=== PATIENT | male | born 1980 | race Caucasian/White ===

== ENCOUNTER 2018-08-12 13:41 | Inpatient (IN) | payer BC, OTHER ==
[2018-08-12 16:57] VITALS: BMI 29.0
--- NOTE | 2018-08-12 17:49 | HP ---
COWS - Scale Resting Pulse: 1= [place] 81-100 Sweatin= Chills/Flushing Restless Observation: 1= Difficult to Sit Still Pupil Size: 1= Pupils >than Normal Bone or Joint Aches: 1= Mild Discomfort Runny Nose/ Eye Tearin= Runny Nose/Eyes GI Upset > 30mins: 1= Stomach Cramp Tremor Observation: 1= Tremor [place], Not Seen Yawning Observation: 2= >3x During Session Anxiety or Irritability: 2=Irritable/Anxious Goose Flesh Skin: 0=Smooth Skin COWS Score: 13 CIWA Score - CIWA Score Nausea/Vomitin Muscle Tremors: 2 Anxiety: 3 Agitation: 2 Paroxysmal Sweats: 2 Orientation: 0-Oriented Tacttile Disturbances: 0-None Auditory Disturbances: 0-None Visual Disturbances: 0-None Headache: 0-None Present CIWA-Ar Total Score: 12 Admission ROS S - HPI Chief Complaint: " I want to go back to work, get clean and get " alcohol and opioid withdrawal symptoms Allergies/Adverse Reactions: Allergies Allergy/AdvReac Type Severity Reaction Status Date / Time No Known Allergies Allergy Verified 08/12/18 16:36 History of Present Illness: 38 yo male with hx of heroin (nasal), nicotine, and alcohol dependence is here seeking detox. Last detox and rehab 2008 does not recall the name of the facility. PMHX: Asthma, HTN, chronic low back pain, depression and anxiety. Reports discharge himself from [facility] seven months ago. Denies suicidal / homicidal ideation, or hx of suicide attempts. Denies hx of seizures , overdose or blackouts. Reports longest period of sobriety two years. Exam Limitations: No Limitations - Ebola screening Have you traveled outside of the country in the last 21 days: No Have you had contact with anyone from an Ebola affected area: No Have you been sick,other than usual withdrawal symptoms: No Do you have a fever: No - Review of Systems Constitutional: Chills, Loss of Appetite, Changes in sleep EENT: reports: Nose Congestion Respiratory: reports: No Symptoms reported Cardiac: reports: No Symptoms Reported GI: reports: Poor Appetite, Poor Fluid Intake, Abdominal cramping : reports: No Symptoms Reported Musculoskeletal: reports: Back Pain, Joint Pain Integumentary: reports: No Symptoms Reported Neuro: reports: Dizziness Endocrine: reports: Increased Thirst Hematology: reports: No Symptoms Reported Psychiatric: reports: Orientated x3, Depressed Other Systems: Reviewed and Negative Patient History - Patient Medical History Hx Anemia: No Hx Asthma: Yes Hx Chronic Obstructive Pulmonary Disease (COPD): No Hx Cancer: No Hx Cardiac Disorders: No Hx Congestive Heart Failure: No Hx Hypertension: Yes Hx Hypercholesterolemia: No Hx Pacemaker: No HX Cerebrovascular Accident: No Hx Seizures: No Hx Dementia: No Hx Diabetes: No Hx Gastrointestinal Disorders: No Hx Liver Disease: No Hx Genitourinary Disorders: No Hx Sexually Transmitted Disorders: No Hx Renal Disease (ESRD): No Hx Thyroid Disease: No Hx Human Immunodeficiency Virus (HIV): No (Last tested eight months ago. Neg results) Hx Hepatitis C: No Hx Depression: Yes Hx Suicide Attempt: No Hx Bipolar Disorder: No Hx Schizophrenia: No - Patient Surgical History Past Surgical History: Yes Hx Neurologic Surgery: No Hx Cataract Extraction: No Hx Cardiac Surgery: No Hx Lung Surgery: No Hx Breast Surgery: No Hx Breast Biopsy: No Hx Abdominal Surgery: Yes (at age 3) Hx Appendectomy: No Hx Cholecystectomy: No Hx Genitourinary Surgery: No Hx Section: No Hx Orthopedic Surgery: No Anesthesia Reaction: No - PPD History Previous Implant?: Yes Documented Results: Negative w/o proof Implanted On Prior R Admission?: No PPD to be Administered?: Yes - Smoking Cessation Smoking history: Current every day smoker Have you smoked in the past 12 months: Yes Aproximately how many cigarettes per day: 15 Hx Chewing Tobacco Use: No Initiated information on smoking cessation: Yes 'Breaking Loose' booklet given: 08/12/18 - Substance & Tx. History Hx Alcohol Use: Yes Hx Substance Use: Yes Substance Use Type: Alcohol, Heroin Hx Substance Use Treatment: Yes ( Last detox and rehab 2009 does not recall the name of the facility) - Substances Abused Heroin Route: Inhalation Frequency: Daily Amount used: 15 bags Age of first use: 17 Date of Last Use: 08/12/18 Alcohol-rum Route: Oral Frequency: Daily Amount used: 1 pt. Age of first use: 15 Date of Last Use: 08/11/18 Family Disease History - Family Disease History Family Disease History: Diabetes: Mother (alive, HTN), Heart Disease: Mother, Other: Mother Admission Physical Exam BHS - Vital Signs Vital Signs: Vital Signs - 24 hr 08/12/18 16:40 Temperature 98.8 F Pulse Rate 90 Respiratory 18 Rate Blood Pressure 122/77 - Physical General Appearance: Yes: Disheveled, Mild Distress, Anxious HEENTM: Yes: EOMI, Hearing grossly Normal, Normal ENT Inspection, Normocephalic , Normal Voice, RONNIE, Pharynx Normal, Tm's normal, Rhinorrhea, Other (dry mucous membranes) Respiratory: Yes: Chest Non-Tender, Lungs Clear, Normal Breath Sounds, No Respiratory Distress, No Accessory Muscle Use Neck: Yes: Within Normal Limits Breast: Yes: Breast Exam Deferred Cardiology: Yes: Regular Rhythm, Regular Rate Abdominal: Yes: Normal Bowel Sounds, Non Tender, Flat, Soft Genitourinary: Yes: Within Normal Limits Back: Yes: Normal Inspection Musculoskeletal: Yes: full range of Motion, Gait Steady, Pelvis Stable, Back pain Extremities: Yes: Normal Capillary Refill, Normal Inspection, Normal Range of Motion, Non-Tender Neurological: Yes: exercise physiologist II-XII NML intact, Fully Oriented, Alert, Motor Strength 5/5 Integumentary: Yes: Normal Color, Warm, Diaphoresis Lymphatic: Yes: Within Normal Limits - Diagnostic (1) Alcohol dependence with withdrawal Current Visit: Yes Status: Acute Qualifiers: Complication of substance-induced condition: uncomplicated Qualified Code(s ): F10.230 - Alcohol dependence with withdrawal, uncomplicated (2) Opioid dependence with withdrawal Current Visit: Yes Status: Acute (3) Hypertension Current Visit: Yes Status: Chronic Qualifiers: Hypertension type: essential hypertension Qualified Code(s): I10 - Essential (primary) hypertension (4) Asthma Current Visit: Yes Status: Chronic Qualifiers: Asthma severity: mild Asthma persistence: intermittent Asthma complication type: uncomplicated Qualified Code(s): J45.20 - Mild intermittent asthma, uncomplicated Cleared for Admission S - Detox or Rehab [facility] Level of Care: Medically Managed Detox Regimen/Protocol: Methadone/Librium S Breath Alcohol Content Breath Alcohol Content: 0 Urine Drug Screen - Results Drug Screen Negative: No Urine Drug Screen Results: OPI-Opiates, MTD-Methadone, OXY-Oxycodone, FEN- Fentanyl
[2018-08-12] MEDS ORDERED: ALBUTEROL SO4 8 GM HFA INHALER IH PRN (17:51)
[2018-08-12] MEDS ORDERED: ALBUTEROL SO4 0.083% IH SOL 2.5 MG/3 ML VIAL.NEB. NEB PRN (17:52)
[2018-08-12] MEDS ORDERED: NICOTINE POLACRILEX 2 MG GUM BUC PRN (17:59)
[2018-08-12] MEDS ORDERED: METHADONE HCL 10 MG TABLET (FOR DETOX USE ONLY) PO ONE ×2 (17:59→23:00)
[2018-08-12] MEDS ORDERED: guaiFENesin/D-METHORPHAN HB 10 ML UNIT-DOSE CUPS PO PRN (17:59)
[2018-08-12] MEDS ORDERED: P-EPHED 60MG/TRIPROLIDI 2.5MG TABLET PO PRN (17:59)
[2018-08-12] MEDS ORDERED: ACETAMINOPHEN 325 MG TABLET (FP) PO PRN (17:59)
[2018-08-12] MEDS ORDERED: MENTHOL/PHENOL 1 EACH UD MM PRN (17:59)
[2018-08-12] MEDS ORDERED: IBUPROFEN 400 MG TABLET (FP) PO PRN (17:59)
[2018-08-12] MEDS ORDERED: MAG HYDROX/AL HYDROX/SIMETH 30 ML UNIT-DOSE CUP PO PRN (17:59)
[2018-08-12] MEDS ORDERED: MAGNESIUM HYDROX 2400MG/30ML ORAL SUSPENSION 30 ML CUP PO PRN (17:59)
[2018-08-12] MEDS ORDERED: MAGNESIUM CITRATE 300 ML BOTTLE PO PRN (17:59)
[2018-08-12] MEDS ORDERED: LOPERAMIDE HCL 2 MG CAPSULE PO PRN (17:59)
[2018-08-12] MEDS: chlordiazePOXIDE HCL 25 MG CAPSULE PO PRN (19:10)
[2018-08-12] MEDS: cloNIDine HCL 0.1 MG TABLET PO SCH (22:18)
[2018-08-12] MEDS: THIAMINE HCL 100 MG TABLET (FP) PO SCH (22:18)
[2018-08-12] MEDS: chlordiazePOXIDE HCL 25 MG CAPSULE PO SCH (22:19)
[2018-08-12] MEDS: MELATONIN 5 MG TABLETS PO PRN (22:21)
[2018-08-12 23:24] LABS: URINE APPEARANCE CLEAR; URINE BILIRUBIN NEGATIVE (<2.0 mg/dL); URINE COLOR YELLOW; URINE GLUCOSE (UA) NEGATIVE (NEGATIVE); URINE KETONE NEGATIVE (NEGATIVE); URINE LEUK ESTERASE NEGATIVE (NEGATIVE); URINE NITRITE NEGATIVE (NEGATIVE); URINE PROTEIN NEGATIVE (NEGATIVE); URINE UROBILINOGEN NEGATIVE mg/dL (0.2-1.0)
[2018-08-13] MEDS: chlordiazePOXIDE HCL 25 MG CAPSULE PO SCH ×4 (05:43→22:08)
[2018-08-13] MEDS: cloNIDine HCL 0.1 MG TABLET PO SCH ×3 (05:56→22:08)
--- NOTE | 2018-08-13 08:22 | CONSULT ---
[facility] Psychiatric Consult - Data Date of interview: 08/13/18 Admission source: [facility] Identifying data: 38 yo male with hx of heroin (nasal), nicotine, and alcohol dependence is here seeking detox. Last detox and rehab 2008 does not recall the name of the facility. PMHX: Asthma, HTN, chronic low back pain, depression and anxiety. Reports discharge himself from [facility] seven months ago. Denies suicidal / homicidal ideation, or hx of suicide attempts. Denies hx of seizures, overdose or blackouts. Reports longest period of sobriety two years.
[2018-08-13] MEDS ORDERED: METHADONE HCL 10 MG TABLET (FOR DETOX USE ONLY) PO SCH (10:00)
[2018-08-13] MEDS: NICOTINE 21 MG/24 HOURS TOPICAL PATCH TD SCH (10:31)
[2018-08-13] MEDS: PRENATAL VITAMINS W/ FOLIC ACID TABLET (FP) PO SCH (10:31)
[2018-08-13] MEDS: amLODIPine BESYLATE 10 MG TABLET (FP) PO SCH (10:31)
[2018-08-13 10:57] LABS: HEMATOCRIT 39.7 % (35.4-49); MCH 28.6 pg (25.7-33.7); MCHC 32.7 g/dl (32.0-35.9); MEAN CELL VOLUME 87.6 fl (80-96); MEAN PLT VOLUME 9.1 fl (7.5-11.1); PLATELET COUNT 167 K/MM3 (134-434); RBC 4.53 M/mm3 (4.00-5.60); RDW 14.2 % (11.9-15.9); WHITE BLOOD COUNT 7.9 K/mm3 (4.0-10.0)
[2018-08-13 11:16] LABS: ALBUMIN 3.2 g/dl (3.4-5.0); ALK PHOS 64 U/L (45-117); ANION GAP 6 MMOL/L (8-16); BILIRUBIN,TOTAL 0.3 mg/dL (0.2-1); BLOOD UREA NITROGEN 16 mg/dL (7-18); CALCIUM 8.3 mg/dL (8.5-10.1); CHLORIDE 108 mmol/L (98-107); CO2 28 mmol/L (21-32); CREATININE 0.6 mg/dL (0.55-1.3); GLUCOSE,RANDOM 85 mg/dL (74-106); POTASSIUM 4.2 mmol/L (3.5-5.1); SGOT/AST 12 U/L (15-37); SGPT/ALT 14 U/L (13-61); SODIUM 142 mmol/L (136-145); TOT PROT 6.3 g/dl (6.4-8.2)
--- NOTE | 2018-08-13 12:19 | EKG ---
Test Reason : Blood Pressure : / mmHG Vent. Rate : 072 BPM Atrial Rate : 072 BPM P-R Int : 132 ms QRS Dur : 090 ms QT Int : 376 ms P-R-T Axes : 053 059 061 degrees QTc Int : 411 ms NORMAL SINUS RHYTHM NORMAL ECG NO PREVIOUS ECGS AVAILABLE Confirmed by DIYA WALSH MD ([id number]) on 08/13/2018 12:18:52 PM Referred By: Confirmed By:DIYA WALSH MD
--- NOTE | 2018-08-13 14:55 | PN ---
[facility] CIWA - CIWA Score Nausea/Vomitin Muscle Tremors: 4-Moderate,w/Arms Extend Anxiety: 4-Mod. Anxious/Guarded Agitation: 4-Moderately Restless Paroxysmal Sweats: 3 Orientation: 0-Oriented Tacttile Disturbances: 1-Very Mild Itch/Numbness Auditory Disturbances: 0-None Visual Disturbances: 0-None Headache: 0-None Present CIWA-Ar Total Score: 18 BHS COWS - Scale Resting Pulse: 0= [place] 80 or Below Sweatin= Chills/Flushing Restless Observation: 3= Extraneous Movement Pupil Size: 0= Normal to Room Light Bone or Joint Aches: 2= Severe Diffuse Aches Runny Nose/ Eye Tearin= Runny Nose/Eyes GI Upset > 30mins: 3= Vomiting/Diarrhea Tremor Observation of Outstretched Hands: 2= Slight Tremor Visible Yawning Observation: 1= 1-2x During Session Anxiety or Irritability: 2=Irritable/Anxious Goose Flesh Skin: 0=Smooth Skin COWS Score: 16 S Progress Note (SOAP) Subjective: Chills, sweating, interrupted sleep Objective: 08/13/18 14:54 Last Vital Signs Temp Pulse Resp BP Pulse Ox 98.9 F 80 18 140/86 08/13/18 14:06 08/13/18 14:06 08/13/18 14:06 08/13/18 14:06 Laboratory Tests 08/12/18 08/13/18 08/13/18 22:22 07:00 07:15 WBC 7.9 RBC 4.53 Hgb 13.0 Hct 39.7 MCV 87.6 MCH 28.6 MCHC 32.7 RDW 14.2 Plt Count 167 MPV 9.1 Sodium Potassium Chloride Carbon Dioxide Anion Gap BUN Creatinine Creat Clearance w eGFR Random Glucose Calcium Total Bilirubin AST ALT Alkaline Phosphatase Total Protein Albumin Urine Color Yellow Urine Appearance Clear Urine pH 5.0 Ur Specific [place] 1.021 Urine Protein Negative Urine Glucose (UA) Negative Urine Ketones Negative Urine Blood Negative Urine Nitrite Negative Urine Bilirubin Negative Urine Urobilinogen Negative Ur Leukocyte Esterase Negative RPR Titer HIV 1&2 Antibody Screen Negative HIV P24 Antigen Negative 08/13/18 08/13/18 07:15 07:15 WBC RBC Hgb Hct MCV MCH MCHC RDW Plt Count MPV Sodium 142 Potassium 4.2 Chloride 108 H Carbon Dioxide 28 Anion Gap 6 L BUN 16 Creatinine 0.6 Creat Clearance w eGFR > 60 Random Glucose 85 Calcium 8.3 L Total Bilirubin 0.3 AST 12 L ALT 14 Alkaline Phosphatase 64 Total Protein 6.3 L Albumin 3.2 L Urine Color Urine Appearance Urine pH Ur Specific [place] Urine Protein Urine Glucose (UA) Urine Ketones Urine Blood Urine Nitrite Urine Bilirubin Urine Urobilinogen Ur Leukocyte Esterase RPR Titer Nonreactive HIV 1&2 Antibody Screen HIV P24 Antigen Labs reviewed Assessment: 08/13/18 14:55 Withdrawal symptoms Plan: Continue detox Encouraged PO water intake
[2018-08-13] MEDS ORDERED: QUEtiapine FUMARATE 50 MG TABLET PO SCH (22:00)
[2018-08-13] MEDS ORDERED: QUEtiapine FUMARATE 100 MG TABLET (FP) PO SCH (22:00)
[2018-08-13] MEDS: THIAMINE HCL 100 MG TABLET (FP) PO SCH (22:08)
[2018-08-13] MEDS: MELATONIN 5 MG TABLETS PO PRN (22:09)
[2018-08-14] MEDS: chlordiazePOXIDE HCL 25 MG CAPSULE PO SCH ×3 (05:21→17:12)
[2018-08-14] MEDS: METHADONE HCL 5 MG TABLET (FOR DETOX USE ONLY) PO SCH (10:20)
[2018-08-14] MEDS: PRENATAL VITAMINS W/ FOLIC ACID TABLET (FP) PO SCH (10:21)
[2018-08-14] MEDS: amLODIPine BESYLATE 10 MG TABLET (FP) PO SCH (10:21)
[2018-08-14] MEDS: NICOTINE 21 MG/24 HOURS TOPICAL PATCH TD SCH (10:23)
[2018-08-14] MEDS: cloNIDine HCL 0.1 MG TABLET PO SCH ×3 (10:24→22:07)
[2018-08-14] MEDS: chlordiazePOXIDE HCL 25 MG CAPSULE PO PRN (12:47)
--- NOTE | 2018-08-14 13:08 | PN ---
Psychiatric Progress Note Vital Signs: Vital Signs Period Temp Pulse Resp BP Sys/Toro Pulse Ox Last 24 Hr 97.2 F-99.9 F 59-81 18-18 114-142/68-93 Date of Session: 08/14/18 Chief Complaint:: BHS HPI: Patient admitted to for alcohol and opioid dependence. ROS: Asthma, Abdominal surgery at age 3. Current Medications: Active Medications Generic Name Dose Route Start Last Admin Trade Name Freq PRN Reason Stop Dose Admin Acetaminophen 650 mg 08/12/18 17:59 Tylenol - PO Q4H PRN FEVER Al Hydroxide/Mg Hydroxide 30 ml 08/12/18 17:59 Mylanta Oral Suspension - PO Q6H PRN DYSPEPSIA Albuterol Sulfate 2 puff 08/12/18 17:51 Ventolin Hfa Inhaler - IH Q4H PRN ASTHMA Albuterol Sulfate 1 amp 08/12/18 17:52 Ventolin 0.083% Nebulizer Soln - NEB Q4H PRN SHORT OF BREATH/WHEEZING Amlodipine Besylate 10 mg 08/13/18 10:00 08/14/18 10:21 Norvasc - PO 10 mg DAILY GINA Administration Chlordiazepoxide HCl 25 mg 08/13/18 23:00 08/14/18 10:21 Librium - PO 08/14/18 17:01 25 mg [id number] GIAN Administration Chlordiazepoxide HCl 15 mg 08/14/18 23:00 Librium - PO 08/15/18 17:01 [id number] GINA Chlordiazepoxide HCl 10 mg 08/15/18 23:00 Librium - PO 08/16/18 17:01 [id number] GINA Chlordiazepoxide HCl 25 mg 08/12/18 17:59 08/14/18 12:47 Librium - PO 08/15/18 17:59 25 mg Q4H PRN Administration WITHDRAWAL(CONT SUBST) Clonidine 0.3 mg 08/12/18 22:00 08/14/18 10:24 Catapres - PO Not Given TID GINA Eucalyptus/Menthol/Phenol/Sorbitol 1 each 08/12/18 17:59 Cepastat Lozenge - MM Q4H PRN SORE THROAT Guaifenesin 10 ml 08/12/18 17:59 Robitussin Dm - PO Q6H PRN COUGH Hydroxyzine Pamoate 50 mg 08/12/18 17:59 Vistaril - PO Q4H PRN AGITATION Ibuprofen 400 mg 08/12/18 17:59 Motrin - PO Q6H PRN PAIN LEVEL 4-6 Loperamide HCl 4 mg 08/12/18 17:59 Imodium - PO Q6H PRN DIARRHEA Magnesium Citrate 300 ml 08/12/18 17:59 Citroma - PO Q48H PRN CONSTIPATION Magnesium Hydroxide 30 ml 08/12/18 17:59 Milk Of Magnesia - PO DAILY PRN CONSTIPATION Melatonin 5 mg 08/12/18 22:00 08/13/18 22:09 Melatonin PO 5 mg HS PRN Administration INSOMNIA Methadone HCl 15 mg 08/14/18 10:00 08/14/18 10:20 Dolophine - PO 08/15/18 10:01 15 mg DAILY GINA Administration Methadone HCl 5 mg 08/17/18 06:00 Dolophine - PO 08/17/18 06:01 DAILY@0600 GINA Methadone HCl 10 mg 08/16/18 10:00 Dolophine - PO 08/16/18 10:01 DAILY GINA Nicotine 21 mg 08/13/18 10:00 08/14/18 10:23 Nicoderm Patch - TD 21 mg DAILY GINA Administration Nicotine Polacrilex 2 mg 08/12/18 17:59 Nicorette Gum - BUC Q2H PRN NICOTINE REPLACEMENT RX Multivit/Folic Acid/Iron 1 tab 08/13/18 10:00 08/14/18 10:21 Vitamins (Sjr) - PO 1 tab DAILY GINA Administration Pseudoephedrine/Triprolidine 1 combo 08/12/18 17:59 Actifed - PO TID PRN NASAL CONGESTION Quetiapine Fumarate 50 mg 08/13/18 22:00 08/13/18 22:08 Seroquel - PO 50 mg HS GINA Administration Thiamine HCl 100 mg 08/12/18 22:00 08/13/18 22:08 Vitamin B1 - PO 100 mg HS GINA Administration Medication(s) Change(s): Will add Seroquel 50mg qhs. Current Side Effect: No Lab tests ordered: No Lab tests reviewed: Yes Provider note:: Patient reports h/o anxiety and depression. At present, patient reports worsening anxiety and insomnia. Patient was prescribed seroquel 50mg with minimal effect. Will increase seroquel to 100mg. Verbal consent given. MAR reviewed and noted patient has yet to accept vistaril 50mg for anxiety. Patient informed that vistaril is available for anxiety/agitation. Psychoeducation and sleep hygiene discussed. Patient satisifed and receptive to feedback. Total face to face time:: 25 Mental Status Exam - Mental Status Exam Alert and Oriented to: Time, Place, Person Cognitive Function: Good Patient Appearance: Well Groomed Mood: Euthymic Affect: Mood Congruent Patient Behavior: Appropriate, Cooperative Speech Pattern: Clear, Appropriate Voice Loudness: Normal Thought Process: Intact, Goal Oriented Thought Disorder: Not Present Hallucinations: Denies Suicidal Ideation: Denies Homicidal Ideation: Denies Insight/Judgement: Poor Sleep: Poorly Appetite: Fair Muscle strength/Tone: Normal Gait/Station: Normal Psychiatric Treatment Plan - Problem List (1) Substance induced mood disorder Current Visit: Yes (2) Substance-induced sleep disorder Current Visit: Yes (3) Alcohol dependence with withdrawal Current Visit: Yes Qualifiers: Complication of substance-induced condition: uncomplicated Qualified Code(s ): F10.230 - Alcohol dependence with withdrawal, uncomplicated (4) Opioid dependence with withdrawal Current Visit: Yes
--- NOTE | 2018-08-14 14:22 | PN ---
S CIWA - CIWA Score Nausea/Vomitin Muscle Tremors: 3 Anxiety: 4-Mod. Anxious/Guarded Agitation: 3 Paroxysmal Sweats: 3 Orientation: 0-Oriented Tacttile Disturbances: 0-None Auditory Disturbances: 0-None Visual Disturbances: 0-None Headache: 0-None Present CIWA-Ar Total Score: 15 BHS COWS - Scale Resting Pulse: 0= [place] 80 or Below Sweatin= Chills/Flushing Restless Observation: 3= Extraneous Movement Pupil Size: 0= Normal to Room Light Bone or Joint Aches: 2= Severe Diffuse Aches Runny Nose/ Eye Tearin= Runny Nose/Eyes GI Upset > 30mins: 2= Nausea/Diarrhea Tremor Observation of Outstretched Hands: 2= Slight Tremor Visible Yawning Observation: 0= None Anxiety or Irritability: 2=Irritable/Anxious Goose Flesh Skin: 0=Smooth Skin COWS Score: 14 BHS Progress Note (SOAP) Subjective: Sweating, interrupted sleep Objective: 08/14/18 14:20 Last Vital Signs Temp Pulse Resp BP Pulse Ox 98.6 F 76 18 105/72 08/14/18 13:55 08/14/18 13:55 08/14/18 13:55 08/14/18 13:55 Laboratory Tests 08/12/18 08/13/18 08/13/18 22:22 07:00 07:15 WBC 7.9 RBC 4.53 Hgb 13.0 Hct 39.7 MCV 87.6 MCH 28.6 MCHC 32.7 RDW 14.2 Plt Count 167 MPV 9.1 Sodium Potassium Chloride Carbon Dioxide Anion Gap BUN Creatinine Creat Clearance w eGFR Random Glucose Calcium Total Bilirubin AST ALT Alkaline Phosphatase Total Protein Albumin Urine Color Yellow Urine Appearance Clear Urine pH 5.0 Ur Specific [place] 1.021 Urine Protein Negative Urine Glucose (UA) Negative Urine Ketones Negative Urine Blood Negative Urine Nitrite Negative Urine Bilirubin Negative Urine Urobilinogen Negative Ur Leukocyte Esterase Negative RPR Titer HIV 1&2 Antibody Screen Negative HIV P24 Antigen Negative 08/13/18 08/13/18 07:15 07:15 WBC RBC Hgb Hct MCV MCH MCHC RDW Plt Count MPV Sodium 142 Potassium 4.2 Chloride 108 H Carbon Dioxide 28 Anion Gap 6 L BUN 16 Creatinine 0.6 Creat Clearance w eGFR > 60 Random Glucose 85 Calcium 8.3 L Total Bilirubin 0.3 AST 12 L ALT 14 Alkaline Phosphatase 64 Total Protein 6.3 L Albumin 3.2 L Urine Color Urine Appearance Urine pH Ur Specific [place] Urine Protein Urine Glucose (UA) Urine Ketones Urine Blood Urine Nitrite Urine Bilirubin Urine Urobilinogen Ur Leukocyte Esterase RPR Titer Nonreactive HIV 1&2 Antibody Screen HIV P24 Antigen Labs reviewed Assessment: 08/14/18 14:20 Withdrawal symptoms Plan: Continue detox Encouraged PO water intake
[2018-08-14] MEDS: hydrOXYzine PAMOATE 50 MG CAPSULE (FP) PO PRN (20:27)
[2018-08-14] MEDS: QUEtiapine FUMARATE 100 MG TABLET (FP) PO SCH (22:06)
[2018-08-14] MEDS: THIAMINE HCL 100 MG TABLET (FP) PO SCH (22:06)
[2018-08-14] MEDS: chlordiazePOXIDE 5 MG CAPSULE PO SCH (22:07)
[2018-08-15] MEDS: hydrOXYzine PAMOATE 50 MG CAPSULE (FP) PO PRN ×4 (03:18→21:11)
[2018-08-15] MEDS: chlordiazePOXIDE 5 MG CAPSULE PO SCH ×3 (06:27→17:42)
[2018-08-15] MEDS: cloNIDine HCL 0.1 MG TABLET PO SCH ×3 (06:31→22:17)
--- NOTE | 2018-08-15 09:25 | PN ---
[facility] Progress Note Note: Vital Signs Temperature 97.1 F L 08/15/18 06:24 Pulse Rate 57 L 08/15/18 06:24 Respiratory Rate 18 08/15/18 06:24 Blood Pressure 111/63 08/15/18 06:24 O2 Sat by Pulse Oximetry (%) Laboratory Last Values WBC 7.9 K/mm3 (4.0-10.0) 08/13/18 07:15 RBC 4.53 M/mm3 (4.00-5.60) 08/13/18 07:15 Hgb 13.0 GM/dL (11.7-16.9) 08/13/18 07:15 Hct 39.7 % (35.4-49) 08/13/18 07:15 MCV 87.6 fl (80-96) 08/13/18 07:15 MCH 28.6 pg (25.7-33.7) 08/13/18 07:15 MCHC 32.7 g/dl (32.0-35.9) 08/13/18 07:15 RDW 14.2 % (11.9-15.9) 08/13/18 07:15 Plt Count 167 K/MM3 (134-434) 08/13/18 07:15 MPV 9.1 fl (7.5-11.1) 08/13/18 07:15 Sodium 142 mmol/L (136-145) 08/13/18 07:15 Potassium 4.2 mmol/L (3.5-5.1) 08/13/18 07:15 Chloride 108 mmol/L (98-107) H 08/13/18 07:15 Carbon Dioxide 28 mmol/L (21-32) 08/13/18 07:15 Anion Gap 6 MMOL/L (8-16) L 08/13/18 07:15 BUN 16 mg/dL (7-18) 08/13/18 07:15 Creatinine 0.6 mg/dL (0.55-1.3) 08/13/18 07:15 Creat Clearance w eGFR > 60 (>60) 08/13/18 07:15 Random Glucose 85 mg/dL (74-106) 08/13/18 07:15 Calcium 8.3 mg/dL (8.5-10.1) L 08/13/18 07:15 Total Bilirubin 0.3 mg/dL (0.2-1) 08/13/18 07:15 AST 12 U/L (15-37) L 08/13/18 07:15 ALT 14 U/L (13-61) 08/13/18 07:15 Alkaline Phosphatase 64 U/L (45-117) 08/13/18 07:15 Total Protein 6.3 g/dl (6.4-8.2) L 08/13/18 07:15 Albumin 3.2 g/dl (3.4-5.0) L 08/13/18 07:15 Urine Color Yellow 08/12/18 22:22 Urine Appearance Clear 08/12/18 22:22 Urine pH 5.0 (5.0-8.0) 08/12/18 22:22 Ur Specific [place] 1.021 (1.010-1.035) 08/12/18 22:22 Urine Protein Negative (NEGATIVE) 08/12/18 22:22 Urine Glucose (UA) Negative (NEGATIVE) 08/12/18 22:22 Urine Ketones Negative (NEGATIVE) 08/12/18 22:22 Urine Blood Negative (NEGATIVE) 08/12/18 22:22 Urine Nitrite Negative (NEGATIVE) 08/12/18 22:22 Urine Bilirubin Negative (<2.0 mg/dL) 08/12/18 22:22 Urine Urobilinogen Negative mg/dL (0.2-1.0) 08/12/18 22:22 Ur Leukocyte Esterase Negative (NEGATIVE) 08/12/18 22:22 RPR Titer Nonreactive (NONREACTIVE) 08/13/18 07:15 HIV 1&2 Antibody Screen Negative 08/13/18 07:00 HIV P24 Antigen Negative 08/13/18 07:00 c/o feeling anxious, back pain, body aches, interrupted sleep Ao x3 no distress full ROM ambulating in the unit withdrawal sx increase PO fluids continue to monitor
[2018-08-15] MEDS: amLODIPine BESYLATE 10 MG TABLET (FP) PO SCH (10:20)
[2018-08-15] MEDS: PRENATAL VITAMINS W/ FOLIC ACID TABLET (FP) PO SCH (10:20)
[2018-08-15] MEDS: METHADONE HCL 5 MG TABLET (FOR DETOX USE ONLY) PO SCH (10:20)
[2018-08-15] MEDS: NICOTINE 21 MG/24 HOURS TOPICAL PATCH TD SCH (10:22)
[2018-08-15] MEDS: chlordiazePOXIDE HCL 10 MG CAPSULE PO SCH (22:17)
[2018-08-15] MEDS: QUEtiapine FUMARATE 100 MG TABLET (FP) PO SCH (22:18)
[2018-08-15] MEDS: THIAMINE HCL 100 MG TABLET (FP) PO SCH (22:18)
[2018-08-16] MEDS: chlordiazePOXIDE HCL 10 MG CAPSULE PO SCH ×3 (05:51→17:37)
[2018-08-16] MEDS: cloNIDine HCL 0.1 MG TABLET PO SCH ×3 (05:52→22:19)
[2018-08-16] MEDS ORDERED: METHADONE HCL 10 MG TABLET (FOR DETOX USE ONLY) PO SCH (10:00)
[2018-08-16] MEDS: amLODIPine BESYLATE 10 MG TABLET (FP) PO SCH (10:13)
[2018-08-16] MEDS: PRENATAL VITAMINS W/ FOLIC ACID TABLET (FP) PO SCH (10:13)
[2018-08-16] MEDS: NICOTINE 21 MG/24 HOURS TOPICAL PATCH TD SCH (10:15)
--- NOTE | 2018-08-16 16:10 | PN ---
BHS Progress Note (SOAP) Subjective: Interrupted sleep, tremor, anxious, nervous. Patient stated he is scheduled for admission to [facility] rehab tomorrow. Objective: 08/16/18 16:09 Last Vital Signs Temp Pulse Resp BP Pulse Ox 99.3 F 72 18 117/72 08/16/18 14:15 08/16/18 14:15 08/16/18 14:15 08/16/18 14:15 Laboratory Tests 08/12/18 08/13/18 08/13/18 22:22 07:00 07:15 WBC 7.9 RBC 4.53 Hgb 13.0 Hct 39.7 MCV 87.6 MCH 28.6 MCHC 32.7 RDW 14.2 Plt Count 167 MPV 9.1 Sodium Potassium Chloride Carbon Dioxide Anion Gap BUN Creatinine Creat Clearance w eGFR Random Glucose Calcium Total Bilirubin AST ALT Alkaline Phosphatase Total Protein Albumin Urine Color Yellow Urine Appearance Clear Urine pH 5.0 Ur Specific [place] 1.021 Urine Protein Negative Urine Glucose (UA) Negative Urine Ketones Negative Urine Blood Negative Urine Nitrite Negative Urine Bilirubin Negative Urine Urobilinogen Negative Ur Leukocyte Esterase Negative RPR Titer HIV 1&2 Antibody Screen Negative HIV P24 Antigen Negative 08/13/18 08/13/18 07:15 07:15 WBC RBC Hgb Hct MCV MCH MCHC RDW Plt Count MPV Sodium 142 Potassium 4.2 Chloride 108 H Carbon Dioxide 28 Anion Gap 6 L BUN 16 Creatinine 0.6 Creat Clearance w eGFR > 60 Random Glucose 85 Calcium 8.3 L Total Bilirubin 0.3 AST 12 L ALT 14 Alkaline Phosphatase 64 Total Protein 6.3 L Albumin 3.2 L Urine Color Urine Appearance Urine pH Ur Specific [place] Urine Protein Urine Glucose (UA) Urine Ketones Urine Blood Urine Nitrite Urine Bilirubin Urine Urobilinogen Ur Leukocyte Esterase RPR Titer Nonreactive HIV 1&2 Antibody Screen HIV P24 Antigen Labs reviewed Assessment: 08/16/18 16:09 Withdrawal symptoms Plan: Continue detox Encouraged PO water intake
[2018-08-16] MEDS: THIAMINE HCL 100 MG TABLET (FP) PO SCH (22:19)
[2018-08-16] MEDS: MELATONIN 5 MG TABLETS PO PRN (22:20)
[2018-08-16] MEDS: QUEtiapine FUMARATE 100 MG TABLET (FP) PO SCH (22:20)
[2018-08-17] MEDS: cloNIDine HCL 0.1 MG TABLET PO SCH (05:14)
[2018-08-17] MEDS ORDERED: METHADONE HCL 5 MG TABLET (FOR DETOX USE ONLY) PO SCH (06:00)
[2018-08-17 09:12] VITALS: BP 102/65; PULSE 66; TEMP 98.4
[2018-08-17] MEDS: amLODIPine BESYLATE 10 MG TABLET (FP) PO SCH (10:34)
[2018-08-17] MEDS: NICOTINE 21 MG/24 HOURS TOPICAL PATCH TD SCH (10:34)
[2018-08-17] MEDS: PRENATAL VITAMINS W/ FOLIC ACID TABLET (FP) PO SCH (10:34)
--- NOTE | 2018-08-17 10:59 | DS ---
[facility] Detox Discharge Summary Admission Date: 08/12/18 Discharge Date: 08/17/18 - History Present History: Alcohol Dependence, Opioid Dependence Pertinent Past History: Alcohol dependence Opioid dependence Asthma HTN Nicotine dependence Chronic LBP - Physical Exam Results Vital Signs: Vital Signs Temperature 98.4 F 08/17/18 09:11 Pulse Rate 66 08/17/18 09:11 Respiratory Rate 18 08/17/18 09:11 Blood Pressure 102/65 08/17/18 09:11 O2 Sat by Pulse Oximetry (%) Pertinent Admission Physical Exam Findings: Withdrawal symptoms Laboratory Tests 08/12/18 08/13/18 08/13/18 22:22 07:00 07:15 WBC 7.9 RBC 4.53 Hgb 13.0 Hct 39.7 MCV 87.6 MCH 28.6 MCHC 32.7 RDW 14.2 Plt Count 167 MPV 9.1 Sodium Potassium Chloride Carbon Dioxide Anion Gap BUN Creatinine Creat Clearance w eGFR Random Glucose Calcium Total Bilirubin AST ALT Alkaline Phosphatase Total Protein Albumin Urine Color Yellow Urine Appearance Clear Urine pH 5.0 Ur Specific [place] 1.021 Urine Protein Negative Urine Glucose (UA) Negative Urine Ketones Negative Urine Blood Negative Urine Nitrite Negative Urine Bilirubin Negative Urine Urobilinogen Negative Ur Leukocyte Esterase Negative RPR Titer HIV 1&2 Antibody Screen Negative HIV P24 Antigen Negative 08/13/18 08/13/18 07:15 07:15 WBC RBC Hgb Hct MCV MCH MCHC RDW Plt Count MPV Sodium 142 Potassium 4.2 Chloride 108 H Carbon Dioxide 28 Anion Gap 6 L BUN 16 Creatinine 0.6 Creat Clearance w eGFR > 60 Random Glucose 85 Calcium 8.3 L Total Bilirubin 0.3 AST 12 L ALT 14 Alkaline Phosphatase 64 Total Protein 6.3 L Albumin 3.2 L Urine Color Urine Appearance Urine pH Ur Specific [place] Urine Protein Urine Glucose (UA) Urine Ketones Urine Blood Urine Nitrite Urine Bilirubin Urine Urobilinogen Ur Leukocyte Esterase RPR Titer Nonreactive HIV 1&2 Antibody Screen HIV P24 Antigen Labs reviewed - Treatment Hospital Course: Detox Protocol Followed, Detoxed Safely, Responded well, Discharged Condition Good, Rehab Referral Accepted - Medication Discharge Medications: Ambulatory Orders Albuterol Sulfate Inhaler - [Ventolin Hfa Inhaler -] 2 inh PO Q4H PRN 08/12/18 Amlodipine Besylate [Norvasc -] 10 mg PO DAILY 08/12/18 Clonidine HCl [Catapres] 0.3 mg PO TID 08/12/18 Quetiapine Fumarate [Seroquel -] 50 mg PO HS #30 tablet 08/13/18 - Diagnosis (1) Chronic lower back pain Current Visit: Yes Status: Chronic (2) Depression Current Visit: Yes Status: Chronic (3) Anxiety Current Visit: Yes Status: Chronic (4) Nicotine dependence Current Visit: Yes Status: Chronic (5) Alcohol dependence with withdrawal Current Visit: Yes Status: Acute Qualifiers: Complication of substance-induced condition: uncomplicated Qualified Code(s ): F10.230 - Alcohol dependence with withdrawal, uncomplicated (6) Opioid dependence with withdrawal Current Visit: Yes Status: Acute (7) Asthma Current Visit: Yes Status: Chronic Qualifiers: Asthma severity: mild Asthma persistence: intermittent Asthma complication type: uncomplicated Qualified Code(s): J45.20 - Mild intermittent asthma, uncomplicated (8) Hypertension Current Visit: Yes Status: Chronic Qualifiers: Hypertension type: essential hypertension Qualified Code(s): I10 - Essential (primary) hypertension - AMA Did Patient Leave Against Medical Advice: No (Patient accepted admission to [facility])
== END 2018-08-17 13:08 | disposition other institution (70) | DRG 773 ==
LOC: YASAS 13:41 → Y3N 18:02
PROC: HZ2ZZZZ Detoxification Services for Substance Abuse Treatment (ICD-10-PCS; principal; 2018-08-12)
DX: F11.23 Opioid dependence with withdrawal (principal); F10.230 Alcohol dependence with withdrawal, uncomplicated; F17.210 Nicotine dependence, cigarettes, uncomplicated; F31.9 Bipolar disorder, unspecified; F19.24 Other psychoactive substance dependence with psychoactive substance-induced mood disorder; F19.282 Other psychoactive substance dependence with psychoactive substance-induced sleep disorder; I10 Essential (primary) hypertension; J45.20 Mild intermittent asthma, uncomplicated; M54.5 Low back pain; G89.29 Other chronic pain
CPT/HCPCS: 36415; 80053; 81003; 85027; 86593; 87389; 93005; 93010; J0735

== ENCOUNTER 2018-08-17 13:18 | Inpatient (IN) | payer OTHER ==
[2018-08-17] MEDS ORDERED: MENTHOL/PHENOL 1 EACH UD MM PRN (14:48)
[2018-08-17] MEDS ORDERED: P-EPHED 60MG/TRIPROLIDI 2.5MG TABLET PO PRN (14:48)
[2018-08-17] MEDS ORDERED: LOPERAMIDE HCL 2 MG CAPSULE PO PRN (14:48)
[2018-08-17] MEDS ORDERED: MAGNESIUM HYDROX 2400MG/30ML ORAL SUSPENSION 30 ML CUP PO PRN (14:48)
[2018-08-17] MEDS ORDERED: MAGNESIUM CITRATE 300 ML BOTTLE PO PRN (14:48)
[2018-08-17] MEDS ORDERED: guaiFENesin/D-METHORPHAN HB 10 ML UNIT-DOSE CUPS PO PRN (14:48)
[2018-08-17] MEDS: cloNIDine HCL 0.1 MG TABLET PO SCH ×2 (16:07→22:06)
[2018-08-17] MEDS: IBUPROFEN 400 MG TABLET (FP) PO PRN (20:14)
[2018-08-17] MEDS: hydrOXYzine PAMOATE 25 MG CAPSULE (FP) PO PRN (20:14)
[2018-08-17] MEDS: THIAMINE HCL 100 MG TABLET (FP) PO SCH (22:06)
[2018-08-17] MEDS: MELATONIN 5 MG TABLETS PO PRN (22:07)
[2018-08-18] MEDS: IBUPROFEN 400 MG TABLET (FP) PO PRN (06:27)
[2018-08-18] MEDS: cloNIDine HCL 0.1 MG TABLET PO SCH ×3 (06:28→22:00)
[2018-08-18] MEDS: hydrOXYzine PAMOATE 25 MG CAPSULE (FP) PO PRN (06:29)
--- NOTE | 2018-08-18 07:04 | HP ---
Psychiatrist Admission - Data Date of interview: 08/18/18 Admission source: 3N Identifying data: This is the first [facility] admission for this 38 years old single male, unemployed on SSI, homeless Medical History: Significant for bronchial asthma, hypertension, chronic low back pain and history of abdominal surgery at 6 months old. Smokes 15 cigarettes daily Psychiatric History: Reports that his first psychiatric contact was 7 years ago when she started receiving treatment for depression & anxiety . Currently, he reports seeing a psychiatrist at [address] [place] [address] in [place], [place] and he is prescribed Seroquel 100 mg po HS, klonopin and another medication. He saw JOSE R Foreman on 08/14/18 and he was prescribed Seroquel 100 mg po HS and Vistaril 50 mg po Q 4hrs prn for anxiety. Denies previous psychiatric hospitalization or suicidal attempt. At present, reports feeling depressd, nervous and sleping poorly Physical/Sexual Abuse/Trauma History: Denies history of emotional, physical or sexual abuse as well as DV relationship. No service Additional Comment: Reports of 2 previous misdemeanor arrests on charges of narcotic possesssion. Denies being on probation at present Vital Signs: Vital Signs - 24 hr 08/18/18 00:30 Respiratory 18 Rate Allergies/Adverse Reactions: Allergies Allergy/AdvReac Type Severity Reaction Status Date / Time No Known Allergies Allergy Verified 08/12/18 16:36 Date of last physical exam: 08/12/18 Concur with the findings of this exam: Yes - Substance Abuse/Tx History Hx Alcohol Use: Yes Hx Substance Use: Yes Substance Use Type: Alcohol (Started drinking alcohol at age 15, consumes one pintof rum daily. Last drank on 08/11/18), Heroin (Started using heroin at age 17, consumes 15 bags daily. Last used on 08/12/18) Hx Substance Use Treatment: Yes (2-3 previous inpt detox & one inpt rehab admissions) Mental Status Exam - Mental Status Exam Alert and Oriented to: Time, Place, Person Cognitive Function: Fair Patient Appearance: Well Groomed Mood: Depressed, Anxious Affect: Appropriate Patient Behavior: Cooperative Speech Pattern: Clear Voice Loudness: Normal Thought Process: Intact Thought Disorder: Not Present Hallucinations: Denies Suicidal Ideation: Denies Homicidal Ideation: Denies Insight/Judgement: Fair Sleep: Poorly Appetite: Poor Muscle strength/Tone: Normal Gait/Station: Normal Psychiatric Findings - Problem List ([place] 1, 2,3) (1) Alcohol dependence Current Visit: Yes Status: Acute (2) Opioid dependence Current Visit: Yes Status: Acute (3) Nicotine dependence Current Visit: No Status: Chronic (4) Substance induced mood disorder Current Visit: Yes Status: Acute (5) Substance-induced sleep disorder Current Visit: Yes Status: Acute (6) Asthma Current Visit: No Status: Chronic Qualifiers: Asthma severity: mild Asthma persistence: intermittent Asthma complication type: uncomplicated Qualified Code(s): J45.20 - Mild intermittent asthma, uncomplicated (7) Chronic lower back pain Current Visit: No Status: Chronic (8) Hypertension Current Visit: No Status: Chronic Qualifiers: Hypertension type: essential hypertension Qualified Code(s): I10 - Essential (primary) hypertension - Initial Treatment Plan Initial Treatment Plan: 1) Continue Seroquel 100 mg po HS and Hydroxyzine 50 mg po Q 4hrs prn for anxiety. 2) Monitor progress
[2018-08-18] MEDS: PRENATAL VITAMINS W/ FOLIC ACID TABLET (FP) PO SCH (10:38)
[2018-08-18] MEDS: amLODIPine BESYLATE 10 MG TABLET (FP) PO SCH (10:38)
[2018-08-18] MEDS: hydrOXYzine PAMOATE 50 MG CAPSULE (FP) PO PRN ×2 (10:40→13:05)
[2018-08-18] MEDS: ACETAMINOPHEN 325 MG TABLET (FP) PO PRN (13:05)
[2018-08-18] MEDS: MAG HYDROX/AL HYDROX/SIMETH 30 ML UNIT-DOSE CUP PO PRN (20:14)
[2018-08-18] MEDS: QUEtiapine FUMARATE 100 MG TABLET (FP) PO SCH (21:57)
[2018-08-18] MEDS: MELATONIN 5 MG TABLETS PO PRN (21:58)
[2018-08-18] MEDS: THIAMINE HCL 100 MG TABLET (FP) PO SCH (21:58)
[2018-08-19] MEDS: cloNIDine HCL 0.1 MG TABLET PO SCH ×3 (06:09→21:50)
[2018-08-19] MEDS: hydrOXYzine PAMOATE 50 MG CAPSULE (FP) PO PRN ×4 (06:10→18:44)
[2018-08-19] MEDS: MAG HYDROX/AL HYDROX/SIMETH 30 ML UNIT-DOSE CUP PO PRN ×3 (06:10→18:53)
--- NOTE | 2018-08-19 10:04 | PN ---
S Progress Note Note: Patient reports experiencing difficulty to sleep despite taking Seroquel 100 mg po HS, Melatonin 5 mg and Vistaril 50 mg at bedtime. Discussed hypnotic effect of Belsomra with patient and he agreed to try it
[2018-08-19] MEDS: PRENATAL VITAMINS W/ FOLIC ACID TABLET (FP) PO SCH (10:33)
[2018-08-19] MEDS: amLODIPine BESYLATE 10 MG TABLET (FP) PO SCH (10:33)
[2018-08-19] MEDS: ACETAMINOPHEN 325 MG TABLET (FP) PO PRN (10:33)
--- NOTE | 2018-08-19 15:13 | PN ---
[facility] Progress Note Note: PT C/O STOMACH UPSET AND REFLUX WITH BLOATING. STATES MYLANTA NOT EFFECTIVE. DENIES NAUSEA/VOMITING/DIARRHEA OR CONSTIPATION. Vital Signs - 24 hr 08/18/18 08/18/18 08/19/18 16:25 21:00 00:30 Temperature Pulse Rate 68 64 Respiratory 16 18 Rate Blood Pressure 140/82 115/69 08/19/18 08/19/18 08/19/18 03:30 06:30 07:05 Temperature 97.6 F Pulse Rate 56 L Respiratory 18 18 18 Rate Blood Pressure 151/92 08/19/18 14:24 Temperature Pulse Rate 64 Respiratory 18 Rate Blood Pressure 108/70 PLAN:ZANTAC 150 MG PO BID
[2018-08-19] MEDS: IBUPROFEN 400 MG TABLET (FP) PO PRN (18:44)
[2018-08-19] MEDS: RANITIDINE HCL 150 MG TABLET (FP) PO SCH (21:50)
[2018-08-19] MEDS: QUEtiapine FUMARATE 100 MG TABLET (FP) PO SCH (21:50)
[2018-08-19] MEDS: THIAMINE HCL 100 MG TABLET (FP) PO SCH (21:50)
[2018-08-19] MEDS ORDERED: SUVOREXANT 10 MG TABLET PO PRN (22:00)
[2018-08-20] MEDS: hydrOXYzine PAMOATE 50 MG CAPSULE (FP) PO PRN ×4 (02:14→21:51)
[2018-08-20] MEDS: cloNIDine HCL 0.1 MG TABLET PO SCH ×3 (06:23→21:49)
--- NOTE | 2018-08-20 10:24 | PN ---
[facility] Progress Note Note: Patient continues to report experiencing difficulty to sleep despite taking seroquel 100 mg and Belsomra 10 mg at bedtime. He does not want increase in Seroquel dosage for fear of weight gain. Requests that Belsomra dosage be increased instead
[2018-08-20] MEDS: RANITIDINE HCL 150 MG TABLET (FP) PO SCH ×2 (10:57→21:49)
[2018-08-20] MEDS: PRENATAL VITAMINS W/ FOLIC ACID TABLET (FP) PO SCH (10:57)
[2018-08-20] MEDS: amLODIPine BESYLATE 10 MG TABLET (FP) PO SCH (10:57)
[2018-08-20] MEDS: MAG HYDROX/AL HYDROX/SIMETH 30 ML UNIT-DOSE CUP PO PRN (18:44)
[2018-08-20] MEDS: QUEtiapine FUMARATE 100 MG TABLET (FP) PO SCH (21:49)
[2018-08-20] MEDS: THIAMINE HCL 100 MG TABLET (FP) PO SCH (21:49)
[2018-08-20] MEDS: SUVOREXANT 15 MG TABLET PO PRN (21:50)
[2018-08-20] MEDS ORDERED: SUVOREXANT 10 MG TABLET PO PRN (22:00)
[2018-08-21] MEDS: cloNIDine HCL 0.1 MG TABLET PO SCH ×3 (06:14→21:37)
[2018-08-21] MEDS: hydrOXYzine PAMOATE 50 MG CAPSULE (FP) PO PRN ×2 (06:15→10:35)
[2018-08-21] MEDS: amLODIPine BESYLATE 10 MG TABLET (FP) PO SCH (10:35)
[2018-08-21] MEDS: RANITIDINE HCL 150 MG TABLET (FP) PO SCH ×2 (10:35→21:37)
[2018-08-21] MEDS: PRENATAL VITAMINS W/ FOLIC ACID TABLET (FP) PO SCH (10:35)
[2018-08-21] MEDS: THIAMINE HCL 100 MG TABLET (FP) PO SCH (21:37)
[2018-08-21] MEDS: QUEtiapine FUMARATE 100 MG TABLET (FP) PO SCH (21:37)
[2018-08-21] MEDS: SUVOREXANT 15 MG TABLET PO PRN (21:37)
[2018-08-22] MEDS: cloNIDine HCL 0.1 MG TABLET PO SCH ×3 (05:57→21:52)
[2018-08-22] MEDS: hydrOXYzine PAMOATE 50 MG CAPSULE (FP) PO PRN ×4 (05:58→21:54)
[2018-08-22] MEDS: RANITIDINE HCL 150 MG TABLET (FP) PO SCH ×2 (10:00→21:52)
[2018-08-22] MEDS: PRENATAL VITAMINS W/ FOLIC ACID TABLET (FP) PO SCH (10:00)
[2018-08-22] MEDS: amLODIPine BESYLATE 10 MG TABLET (FP) PO SCH (10:00)
[2018-08-22] MEDS: QUEtiapine FUMARATE 100 MG TABLET (FP) PO SCH (21:52)
[2018-08-22] MEDS: THIAMINE HCL 100 MG TABLET (FP) PO SCH (21:53)
[2018-08-22] MEDS: SUVOREXANT 15 MG TABLET PO PRN (21:54)
[2018-08-23] MEDS: hydrOXYzine PAMOATE 50 MG CAPSULE (FP) PO PRN ×4 (06:23→21:49)
[2018-08-23] MEDS: cloNIDine HCL 0.1 MG TABLET PO SCH ×3 (06:23→21:47)
[2018-08-23] MEDS: PRENATAL VITAMINS W/ FOLIC ACID TABLET (FP) PO SCH (10:10)
[2018-08-23] MEDS: amLODIPine BESYLATE 10 MG TABLET (FP) PO SCH (10:10)
[2018-08-23] MEDS: RANITIDINE HCL 150 MG TABLET (FP) PO SCH ×2 (10:11→21:47)
[2018-08-23] MEDS: SUVOREXANT 15 MG TABLET PO PRN (21:46)
[2018-08-23] MEDS: THIAMINE HCL 100 MG TABLET (FP) PO SCH (21:47)
[2018-08-23] MEDS: QUEtiapine FUMARATE 100 MG TABLET (FP) PO SCH (21:47)
[2018-08-23] MEDS ORDERED: SUVOREXANT 10 MG TABLET PO PRN (22:00)
[2018-08-24] MEDS: cloNIDine HCL 0.1 MG TABLET PO SCH ×3 (06:22→21:42)
[2018-08-24] MEDS: hydrOXYzine PAMOATE 50 MG CAPSULE (FP) PO PRN ×4 (06:23→21:44)
[2018-08-24] MEDS: amLODIPine BESYLATE 10 MG TABLET (FP) PO SCH (10:41)
[2018-08-24] MEDS: RANITIDINE HCL 150 MG TABLET (FP) PO SCH ×2 (10:41→21:42)
[2018-08-24] MEDS: PRENATAL VITAMINS W/ FOLIC ACID TABLET (FP) PO SCH (10:41)
[2018-08-24] MEDS: QUEtiapine FUMARATE 100 MG TABLET (FP) PO SCH (21:41)
[2018-08-24] MEDS: THIAMINE HCL 100 MG TABLET (FP) PO SCH (21:42)
[2018-08-24] MEDS: SUVOREXANT 15 MG TABLET PO PRN (21:43)
[2018-08-25] MEDS: cloNIDine HCL 0.1 MG TABLET PO SCH ×3 (06:10→21:40)
[2018-08-25] MEDS: hydrOXYzine PAMOATE 50 MG CAPSULE (FP) PO PRN ×3 (06:10→21:43)
[2018-08-25] MEDS: PRENATAL VITAMINS W/ FOLIC ACID TABLET (FP) PO SCH (10:34)
[2018-08-25] MEDS: RANITIDINE HCL 150 MG TABLET (FP) PO SCH ×2 (10:34→21:40)
[2018-08-25] MEDS: amLODIPine BESYLATE 10 MG TABLET (FP) PO SCH (10:35)
[2018-08-25] MEDS: ACETAMINOPHEN 325 MG TABLET (FP) PO PRN (14:07)
[2018-08-25] MEDS: THIAMINE HCL 100 MG TABLET (FP) PO SCH (21:40)
[2018-08-25] MEDS: QUEtiapine FUMARATE 100 MG TABLET (FP) PO SCH (21:40)
[2018-08-25] MEDS: SUVOREXANT 15 MG TABLET PO PRN (21:43)
[2018-08-26] MEDS: hydrOXYzine PAMOATE 50 MG CAPSULE (FP) PO PRN ×3 (06:14→21:49)
[2018-08-26] MEDS: cloNIDine HCL 0.1 MG TABLET PO SCH ×3 (06:14→21:46)
[2018-08-26] MEDS: PRENATAL VITAMINS W/ FOLIC ACID TABLET (FP) PO SCH (10:29)
[2018-08-26] MEDS: amLODIPine BESYLATE 10 MG TABLET (FP) PO SCH (10:29)
[2018-08-26] MEDS: RANITIDINE HCL 150 MG TABLET (FP) PO SCH ×2 (10:29→21:46)
[2018-08-26] MEDS: ACETAMINOPHEN 325 MG TABLET (FP) PO PRN (17:54)
[2018-08-26] MEDS: THIAMINE HCL 100 MG TABLET (FP) PO SCH (21:46)
[2018-08-26] MEDS: QUEtiapine FUMARATE 100 MG TABLET (FP) PO SCH (21:46)
[2018-08-27] MEDS: hydrOXYzine PAMOATE 50 MG CAPSULE (FP) PO PRN ×2 (06:09→10:49)
[2018-08-27] MEDS: cloNIDine HCL 0.1 MG TABLET PO SCH (06:09)
[2018-08-27 07:16] VITALS: BP 115/73; PULSE 82; TEMP 98
--- NOTE | 2018-08-27 08:28 | PN ---
Psychiatric Progress Note Vital Signs: Vital Signs Period Temp Pulse Resp BP Sys/Toro Pulse Ox Last 24 Hr 98.0 F 79-82 -18 115-123/68-73 Date of Session: 08/27/18 Chief Complaint:: "Discharge" HPI: Patient was admitted to alcohol and opioid dependence. ROS: Significant for bronchial asthma, hypertension, chronic low back pain and history of abdominal surgery at 6 months old Current Medications: Active Medications Generic Name Dose Route Start Last Admin Trade Name Freq PRN Reason Stop Dose Admin Acetaminophen 650 mg 08/17/18 14:48 08/26/18 17:54 Tylenol - PO 650 mg Q4H PRN Administration FEVER Al Hydroxide/Mg Hydroxide 30 ml 08/17/18 14:48 08/20/18 18:44 Mylanta Oral Suspension - PO 30 ml Q6H PRN Administration DYSPEPSIA Amlodipine Besylate 10 mg 08/18/18 10:00 08/26/18 10:29 Norvasc - PO 10 mg DAILY GINA Administration Clonidine 0.1 mg 08/19/18 06:00 08/27/18 06:09 Catapres - PO 0.1 mg TID GINA Administration Eucalyptus/Menthol/Phenol/Sorbitol 1 each 08/17/18 14:48 Cepastat Lozenge - MM Q4H PRN SORE THROAT Guaifenesin 10 ml 08/17/18 14:48 Robitussin Dm - PO Q6H PRN COUGH Hydroxyzine Pamoate 50 mg 08/18/18 09:44 08/27/18 06:09 Vistaril - PO 50 mg Q4H PRN Administration ANXIETY Ibuprofen 400 mg 08/17/18 14:48 08/19/18 18:44 Motrin - PO 400 mg Q6H PRN Administration Pain Level 4-6 Loperamide HCl 4 mg 08/17/18 14:48 Imodium - PO Q6H PRN DIARRHEA Magnesium Citrate 300 ml 08/17/18 14:48 Citroma - PO Q48H PRN CONSTIPATION Magnesium Hydroxide 30 ml 08/17/18 14:48 Milk Of Magnesia - PO DAILY PRN CONSTIPATION Multivit/Folic Acid/Iron 1 tab 08/18/18 10:00 08/26/18 10:29 Vitamins (Sjr) - PO 1 tab DAILY GINA Administration Pseudoephedrine/Triprolidine 1 combo 08/17/18 14:48 Actifed - PO TID PRN NASAL CONGESTION Quetiapine Fumarate 100 mg 08/18/18 22:00 08/26/18 21:46 Seroquel - PO 100 mg HS GINA Administration Ranitidine HCl 150 mg 08/19/18 22:00 08/26/18 21:46 Zantac - PO 150 mg BID GINA Administration Thiamine HCl 100 mg 08/17/18 22:00 08/26/18 21:46 Vitamin B1 - PO 100 mg HS GINA Administration Medication(s) Change(s): No. Current Side Effect: No Lab tests ordered: No Lab tests reviewed: Yes Provider note:: [employer] Operator scheduled for an early discharge on 08/27/18 after stating he needs to return to work. Despite his short stay patient reports learning new coping mechaisms to overcome his urge to use substances again. He has also learned the importance of changing his behavior and the need for more structure in his life. Patient reports finding seroquel 100mg qhs and vistaril 50mg for anxiety effective. A 30 day prescription [place] [id number]. Patient is stable for discharge on 08/27/18. Total face to face time:: 35 Mental Status Exam - Mental Status Exam Alert and Oriented to: Time, Place, Person Cognitive Function: Good Patient Appearance: Well Groomed Mood: Hopeful Affect: Appropriate Patient Behavior: Appropriate, Cooperative Speech Pattern: Clear, Appropriate Voice Loudness: Normal Thought Process: Intact, Goal Oriented Thought Disorder: Not Present Hallucinations: Denies Suicidal Ideation: Denies Homicidal Ideation: Denies Insight/Judgement: Good Sleep: Fair Appetite: Good Muscle strength/Tone: Normal Gait/Station: Normal Psychiatric Treatment Plan - Problem List (1) Alcohol dependence Current Visit: Yes (2) Opioid dependence Current Visit: Yes (3) Substance induced mood disorder Current Visit: Yes (4) Substance-induced sleep disorder Current Visit: Yes (5) Nicotine dependence Current Visit: No
[2018-08-27] MEDS: amLODIPine BESYLATE 10 MG TABLET (FP) PO SCH (10:48)
[2018-08-27] MEDS: PRENATAL VITAMINS W/ FOLIC ACID TABLET (FP) PO SCH (10:48)
[2018-08-27] MEDS: RANITIDINE HCL 150 MG TABLET (FP) PO SCH (10:48)
== END 2018-08-27 10:50 | disposition home or self-care (01) | DRG 772 ==
LOC: YASAS 13:18 → Y5N 13:23
PROVIDERS: ADMIT Psychiatry & Neurology Psychiatry; ATTEND Psychiatry & Neurology Psychiatry
PROC: HZ42ZZZ Group Counseling for Substance Abuse Treatment, Cognitive-Behavioral (ICD-10-PCS; principal; 2018-08-17)
DX: F11.20 Opioid dependence, uncomplicated (principal); F10.20 Alcohol dependence, uncomplicated; F17.210 Nicotine dependence, cigarettes, uncomplicated; F19.24 Other psychoactive substance dependence with psychoactive substance-induced mood disorder; F19.282 Other psychoactive substance dependence with psychoactive substance-induced sleep disorder; I10 Essential (primary) hypertension; J45.20 Mild intermittent asthma, uncomplicated; M54.5 Low back pain; G89.29 Other chronic pain
CPT/HCPCS: J0735

== ENCOUNTER 2018-11-02 10:28 | Inpatient (IN) | payer OTHER ==
[2018-11-02 11:01] VITALS: BMI 26.4
--- NOTE | 2018-11-02 11:44 | HP ---
COWS - Scale Resting Pulse: 0= MS 80 or Below Sweatin= Chills/Flushing Restless Observation: 1= Difficult to Sit Still Pupil Size: 0= Normal to Room Light Bone or Joint Aches: 1= Mild Discomfort Runny Nose/ Eye Tearin= Runny Nose/Eyes GI Upset > 30mins: 2= Nausea/Diarrhea Tremor Observation: 1= Tremor [place], Not Seen Yawning Observation: 1= 1-2x During Session Anxiety or Irritability: 1=Feels Anxious/Irritable Goose Flesh Skin: 3=Piloerection COWS Score: 13 CIWA Score Nausea/Vomitin Muscle Tremors: 2 Anxiety: 2 Agitation: 1-Slight > Activity Paroxysmal Sweats: 1-Minimal Palms Moist Orientation: 0-Oriented Tacttile Disturbances: 1-Very Mild Itch/Numbness Auditory Disturbances: 1-Very Mild Visual Disturbances: 1-Very Mild Sensitivity Headache: 2-Mild CIWA-Ar Total Score: 13 - Admission Criteria [facility]ASAS Guidelines: Admission for Medically Managed Detox: Requires at least one of the followin. CIWA greater than 12 2. Seizures within the past 24 hours 3. Delirium tremens within the past 24 hours 4. Hallucinations within the past 24 hours 5. Acute intervention needed for co occurring medical disorder 6. Acute intervention needed for co occurring psychiatric disorder 7. Severe withdrawal that cannot be handled at a lower level of care (continued vomiting, continued diarrhea, abnormal vital signs) requiring intravenous medication and/or fluids 8. Admission [facility] [place] Chief Complaint: WITHDRAWAL SYMPTOMS Allergies/Adverse Reactions: Allergies Allergy/AdvReac Type Severity Reaction Status Date / Time No Known Allergies Allergy Verified 11/02/18 11:19 History of Present Illness: 38 Y.O. MAN WITH A HISTORY OF OF HEROIN AND ALCOHOL DEPENDENCE IS HERE SEEKING DETOX AND REHAB SERVICES. HE WAS LAST HERE 08/2018 FOR DETOX AND REHAB. LONGEST PERIOD OF DRUG AND ALCOHOL ABSTINENCE HAS BEEN 6 YEARS. HE REPORTS A 4 YEAR HISTORY OF BENZODIAZEPINE DEPENDENCE; U/A NEGATIVE FOR BENZO'S. Exam Limitations: No Limitations - Ebola screening Have you traveled outside of the country in the last 21 days: No Have you had contact with anyone from an Ebola affected area: No Have you been sick,other than usual withdrawal symptoms: No Do you have a fever: No - Review of Systems Constitutional: Chills, Loss of Appetite, Unintentional Wgt. Loss EENT: reports: Tearing Respiratory: reports: No Symptoms reported Cardiac: reports: No Symptoms Reported GI: reports: Nausea, Abdominal cramping : reports: No Symptoms Reported Musculoskeletal: reports: Back Pain Integumentary: reports: No Symptoms Reported Neuro: reports: Seizure (Reports last seizure was 2 months ago.) Hematology: reports: No Symptoms Reported Psychiatric: reports: Orientated x3, Anxious, Depressed Other Systems: Reviewed and Negative Patient History - Patient Medical History Hx Anemia: No Hx Asthma: Yes Hx Chronic Obstructive Pulmonary Disease (COPD): No Hx Cancer: No Hx Cardiac Disorders: No Hx Congestive Heart Failure: No Hx Hypertension: Yes (non compliant with meds.) Hx Hypercholesterolemia: No Hx Pacemaker: No HX Cerebrovascular Accident: No Hx Seizures: Yes (Reports last seizure 2 months ago; benzo induced ) Hx Dementia: No Hx Diabetes: No Hx Gastrointestinal Disorders: No Hx Liver Disease: No Hx Genitourinary Disorders: No Hx Sexually Transmitted Disorders: No Hx Renal Disease (ESRD): No Hx Thyroid Disease: No Hx Human Immunodeficiency Virus (HIV): No (Last tested eight months ago. Neg results) Hx Hepatitis C: No Hx Depression: Yes Hx Suicide Attempt: No Hx Bipolar Disorder: No Hx Schizophrenia: No - Patient Surgical History Past Surgical History: Yes Hx Neurologic Surgery: No Hx Cataract Extraction: No Hx Cardiac Surgery: No Hx Lung Surgery: No Hx Breast Surgery: No Hx Breast Biopsy: No Hx Abdominal Surgery: Yes (at age 3) Hx Appendectomy: No Hx Cholecystectomy: No Hx Genitourinary Surgery: No Hx Section: No Hx Orthopedic Surgery: No Anesthesia Reaction: No - PPD History Previous Implant?: Yes Documented Results: Negative w/proof Implanted On Prior [facility] Admission?: Yes Date: 08/14/18 Results: 0 mm PPD to be Administered?: No - Reproductive History Patient is a Female of Child Bearing Age (11 -55 yrs old): No - Smoking Cessation Smoking history: Current every day smoker Have you smoked in the past 12 months: Yes Aproximately how many cigarettes per day: 15 Hx Chewing Tobacco Use: No Initiated information on smoking cessation: Yes 'Breaking Loose' booklet given: 11/02/18 - Substance & Tx. History Hx Alcohol Use: Yes Hx Substance Use: Yes Substance Use Type: Cocaine, Heroin Hx Substance Use Treatment: Yes (DETOX AND REHAB: 08/12/18-08/27/18) - Substances Abused Heroin Route: Inhalation Frequency: Daily Amount used: 15 BAGS Age of first use: 20 Date of Last Use: 11/02/18 Alcohol Route: Oral Frequency: Daily Amount used: 1/2 pint rum Age of first use: 15 Date of Last Use: 11/02/18 Benzodiazepine (Klonopin) Route: Oral Frequency: Daily Amount used: 20mg Age of first use: 20 Date of Last Use: 11/02/18 Family Disease History - Family Disease History Family Disease History: Diabetes: Mother (alive, HTN), Heart Disease: Mother, Other: Mother Admission Physical Exam S - Vital Signs Vital Signs: Vital Signs - 24 hr 11/02/18 10:52 Pulse Rate 77 Respiratory 16 Rate Blood Pressure 118/85 - Physical General Appearance: Yes: Irritable, Sweating, Anxious HEENTM: Yes: Hearing grossly Normal, Normocephalic, Normal Voice Respiratory: Yes: Chest Non-Tender, Lungs Clear, Normal Breath Sounds, No Respiratory Distress, No Accessory Muscle Use Neck: Yes: No masses,lesions,Nodules Breast: Yes: Breast Exam Deferred Cardiology: Yes: Regular Rhythm, Regular Rate Abdominal: Yes: Normal Bowel Sounds, Non Tender, Flat Genitourinary: Yes: Other (No complaints reported) Back: Yes: Normal Inspection Musculoskeletal: Yes: full range of Motion, Gait Steady Extremities: Yes: Normal Inspection, Normal Range of Motion, Non-Tender Neurological: Yes: Fully Oriented, Alert, Normal Mood/Affect, Normal Response Integumentary: Yes: Normal Color, Dry, Warm Lymphatic: Yes: Within Normal Limits - Diagnostic (1) Alcohol dependence with withdrawal Current Visit: Yes Status: Chronic Qualifiers: Complication of substance-induced condition: uncomplicated Qualified Code(s ): F10.230 - Alcohol dependence with withdrawal, uncomplicated (2) Asthma Current Visit: Yes Status: Chronic Qualifiers: Asthma severity: mild Asthma persistence: intermittent Asthma complication type: uncomplicated Qualified Code(s): J45.20 - Mild intermittent asthma, uncomplicated (3) Hypertension Current Visit: Yes Status: Chronic Qualifiers: Hypertension type: essential hypertension Qualified Code(s): I10 - Essential (primary) hypertension (4) Nicotine dependence Current Visit: Yes Status: Chronic (5) History of seizure Current Visit: No Status: Acute (6) Opioid dependence with withdrawal Current Visit: Yes Status: Chronic Cleared for Admission [facility] - Detox or Rehab [facility] Level of Care: Medically Managed Detox Regimen/Protocol: Methadone/Valium [facility] Breath Alcohol Content Breath Alcohol Content: 0.068 Urine Drug Screen - Results Drug Screen Negative: No Urine Drug Screen Results: OPI-Opiates, MTD-Methadone, FEN-Fentanyl
[2018-11-02] MEDS ORDERED: MAGNESIUM CITRATE 300 ML BOTTLE PO PRN (11:59)
[2018-11-02] MEDS ORDERED: MAG HYDROX/AL HYDROX/SIMETH 30 ML UNIT-DOSE CUP PO PRN (11:59)
[2018-11-02] MEDS ORDERED: ACETAMINOPHEN 325 MG TABLET (FP) PO PRN (11:59)
[2018-11-02] MEDS ORDERED: MENTHOL/PHENOL 1 EACH UD MM PRN (11:59)
[2018-11-02] MEDS ORDERED: guaiFENesin/D-METHORPHAN HB 10 ML UNIT-DOSE CUPS PO PRN (11:59)
[2018-11-02] MEDS ORDERED: MAGNESIUM HYDROX 2400MG/30ML ORAL SUSPENSION 30 ML CUP PO PRN (11:59)
[2018-11-02] MEDS ORDERED: LOPERAMIDE HCL 2 MG CAPSULE PO PRN (11:59)
[2018-11-02] MEDS ORDERED: P-EPHED 60MG/TRIPROLIDI 2.5MG TABLET PO PRN (11:59)
[2018-11-02] MEDS ORDERED: IBUPROFEN 400 MG TABLET (FP) PO PRN (11:59)
[2018-11-02] MEDS ORDERED: ALBUTEROL SO4 8 GM HFA INHALER IH PRN (12:00)
[2018-11-02] MEDS ORDERED: diphenhydrAMINE HCL 25 MG CAPSULE (FP) PO PRN (12:00)
[2018-11-02] MEDS ORDERED: diazePAM 5 MG TABLET PO ONE (14:10)
[2018-11-02] MEDS ORDERED: METHADONE HCL 10 MG TABLET (FOR DETOX USE ONLY) PO ONE ×2 (14:10→23:00)
[2018-11-02] MEDS: diazePAM 5 MG TABLET PO SCH ×2 (14:48→22:26)
[2018-11-02] MEDS: diazePAM 5 MG TABLET PO PRN (18:16)
[2018-11-02] MEDS: THIAMINE HCL 100 MG TABLET (FP) PO SCH (22:26)
[2018-11-02] MEDS: MELATONIN 5 MG TABLETS PO PRN (22:26)
[2018-11-03] MEDS: diazePAM 5 MG TABLET PO SCH ×3 (06:36→22:16)
[2018-11-03] MEDS ORDERED: METHADONE HCL 10 MG TABLET (FOR DETOX USE ONLY) PO SCH (10:00)
[2018-11-03] MEDS: diazePAM 5 MG TABLET PO PRN ×2 (10:21→17:19)
[2018-11-03] MEDS: amLODIPine BESYLATE 10 MG TABLET (FP) PO SCH (10:21)
[2018-11-03] MEDS: PRENATAL VITAMINS W/ FOLIC ACID TABLET (FP) PO SCH (10:21)
[2018-11-03 11:53] LABS: HEMATOCRIT 42.3 % (35.4-49); HEMOGLOBIN 13.9 GM/dL (11.7-16.9); MCH 29.8 pg (25.7-33.7); MCHC 32.9 g/dl (32.0-35.9); MEAN CELL VOLUME 90.5 fl (80-96); MEAN PLT VOLUME 10.7 fl (7.5-11.1); PLATELET COUNT 186 K/MM3 (134-434); RBC 4.67 M/mm3 (4.00-5.60); RDW 14.7 % (11.9-15.9); WHITE BLOOD COUNT 10.3 K/mm3 (4.0-10.0)
[2018-11-03 11:54] LABS: ALK PHOS 79 U/L (45-117); ANION GAP 9 MMOL/L (8-16); BILIRUBIN,TOTAL 0.2 mg/dL (0.2-1); BLOOD UREA NITROGEN 9 mg/dL (7-18); CALCIUM 9.3 mg/dL (8.5-10.1); CHLORIDE 110 mmol/L (98-107); CO2 25 mmol/L (21-32); CREATININE 0.7 mg/dL (0.55-1.3); GLUCOSE,RANDOM 76 mg/dL (74-106); SGOT/AST 10 U/L (15-37); SGPT/ALT 13 U/L (13-61); SODIUM 144 mmol/L (136-145); TOT PROT 7.3 g/dl (6.4-8.2)
--- NOTE | 2018-11-03 11:55 | PN ---
[facility] CIWA - CIWA Score Nausea/Vomitin-No Nausea/No Vomiting Muscle Tremors: 3 Anxiety: 3 Agitation: 3 Paroxysmal Sweats: 3 Orientation: 0-Oriented Tacttile Disturbances: 0-None Auditory Disturbances: 0-None Visual Disturbances: 0-None Headache: 0-None Present CIWA-Ar Total Score: 12 [facility] COWS - Scale Resting Pulse: 0= [place] 80 or Below Sweatin=Flushed/Facial Moisture Restless Observation: 1= Difficult to Sit Still Pupil Size: 0= Normal to Room Light Bone or Joint Aches: 2= Severe Diffuse Aches Runny Nose/ Eye Tearin= Nasal Congestion GI Upset > 30mins: 1= Stomach Cramp Tremor Observation of Outstretched Hands: 2= Slight Tremor Visible Yawning Observation: 0= None Anxiety or Irritability: 2=Irritable/Anxious Goose Flesh Skin: 0=Smooth Skin COWS Score: 11 S Progress Note (SOAP) Subjective: agitation sweats shakes interrupted sleep body aches irritable Objective: 11/03/18 11:55 Vital Signs Temperature 97.9 F 11/03/18 09:17 Pulse Rate 66 11/03/18 09:17 Respiratory Rate 18 11/03/18 09:17 Blood Pressure 144/90 11/03/18 09:17 O2 Sat by Pulse Oximetry (%) Laboratory Tests 11/03/18 11/03/18 05:45 05:45 WBC 10.3 H RBC 4.67 Hgb 13.9 Hct 42.3 MCV 90.5 MCH 29.8 MCHC 32.9 RDW 14.7 Plt Count 186 MPV 10.7 D Sodium 144 Potassium 4.0 Chloride 110 H Carbon Dioxide 25 Anion Gap 9 BUN 9 Creatinine 0.7 Creat Clearance w eGFR > 60 Random Glucose 76 Calcium 9.3 Total Bilirubin 0.2 AST 10 L ALT 13 Alkaline Phosphatase 79 Total Protein 7.3 Albumin 4.0 aaox3 ambulating no acute distress Assessment: 11/03/18 11:55 withdrawal sx Plan: continue detox increase fluids
[2018-11-03] MEDS: THIAMINE HCL 100 MG TABLET (FP) PO SCH (22:16)
[2018-11-03] MEDS: MELATONIN 5 MG TABLETS PO PRN (22:17)
[2018-11-04] MEDS: diazePAM 5 MG TABLET PO PRN ×3 (05:54→18:37)
[2018-11-04] MEDS: diazePAM 5 MG TABLET PO SCH ×2 (10:50→22:10)
[2018-11-04] MEDS: amLODIPine BESYLATE 10 MG TABLET (FP) PO SCH (10:50)
[2018-11-04] MEDS: PRENATAL VITAMINS W/ FOLIC ACID TABLET (FP) PO SCH (10:50)
[2018-11-04] MEDS: METHADONE HCL 5 MG TABLET (FOR DETOX USE ONLY) PO SCH (10:50)
--- NOTE | 2018-11-04 11:22 | PN ---
[facility] CIWA - CIWA Score Nausea/Vomitin-No Nausea/No Vomiting Muscle Tremors: 3 Anxiety: 2 Agitation: 3 Paroxysmal Sweats: 3 Orientation: 0-Oriented Tacttile Disturbances: 0-None Auditory Disturbances: 0-None Visual Disturbances: 0-None Headache: 0-None Present CIWA-Ar Total Score: 11 S COWS - Scale Resting Pulse: 0= [place] 80 or Below Sweatin=Flushed/Facial Moisture Restless Observation: 1= Difficult to Sit Still Pupil Size: 0= Normal to Room Light Bone or Joint Aches: 1= Mild Discomfort Runny Nose/ Eye Tearin= Runny Nose/Eyes GI Upset > 30mins: 0= None Tremor Observation of Outstretched Hands: 2= Slight Tremor Visible Yawning Observation: 2= >3x During Session Anxiety or Irritability: 2=Irritable/Anxious Goose Flesh Skin: 0=Smooth Skin COWS Score: 12 S Progress Note (SOAP) Subjective: insomnia sweats teary eyes nasal congestion irritable agitation Objective: 11/04/18 11:22 Vital Signs Temperature 98.2 F 11/04/18 11:12 Pulse Rate 73 11/04/18 11:12 Respiratory Rate 18 11/04/18 11:12 Blood Pressure 131/79 11/04/18 11:12 O2 Sat by Pulse Oximetry (%) Laboratory Tests 11/03/18 11/03/18 11/03/18 05:45 05:45 05:45 WBC 10.3 H RBC 4.67 Hgb 13.9 Hct 42.3 MCV 90.5 MCH 29.8 MCHC 32.9 RDW 14.7 Plt Count 186 MPV 10.7 D Sodium 144 Potassium 4.0 Chloride 110 H Carbon Dioxide 25 Anion Gap 9 BUN 9 Creatinine 0.7 Creat Clearance w eGFR > 60 Random Glucose 76 Calcium 9.3 Total Bilirubin 0.2 AST 10 L ALT 13 Alkaline Phosphatase 79 Total Protein 7.3 Albumin 4.0 RPR Titer Nonreactive aaox3 ambulating no acute distress Assessment: 11/04/18 11:23 withdrawal sx Plan: continue detox increase fluids actifed prn trazadone 100mg qhs
[2018-11-04] MEDS: traZODone HCL 100 MG TABLET (FP) PO SCH (22:10)
[2018-11-04] MEDS: THIAMINE HCL 100 MG TABLET (FP) PO SCH (22:10)
[2018-11-05] MEDS: diazePAM 5 MG TABLET PO PRN (05:46)
[2018-11-05] MEDS: METHADONE HCL 5 MG TABLET (FOR DETOX USE ONLY) PO SCH (10:07)
[2018-11-05] MEDS: PRENATAL VITAMINS W/ FOLIC ACID TABLET (FP) PO SCH (10:07)
[2018-11-05] MEDS: diazePAM 5 MG TABLET PO SCH ×2 (10:07→22:13)
[2018-11-05] MEDS: amLODIPine BESYLATE 10 MG TABLET (FP) PO SCH (10:07)
--- NOTE | 2018-11-05 11:14 | PN ---
[facility] Progress Note (SOAP) Subjective: sweats mild shakes sleepy much better Objective: 11/05/18 11:13 Vital Signs Temperature 98.3 F 11/05/18 09:30 Pulse Rate 66 11/05/18 09:30 Respiratory Rate 18 11/05/18 09:30 Blood Pressure 127/66 11/05/18 09:30 O2 Sat by Pulse Oximetry (%) aaox3 ambulating no acute distress Assessment: 11/05/18 11:13 withdrawal sx Plan: continue detox increase fluids continue with trazadone as ordered for sleep
[2018-11-05] MEDS: hydrOXYzine PAMOATE 50 MG CAPSULE (FP) PO PRN (14:05)
[2018-11-05] MEDS: traZODone HCL 100 MG TABLET (FP) PO SCH (22:13)
[2018-11-05] MEDS: THIAMINE HCL 100 MG TABLET (FP) PO SCH (22:13)
[2018-11-06] MEDS ORDERED: METHADONE HCL 10 MG TABLET (FOR DETOX USE ONLY) PO SCH (10:00)
[2018-11-06] MEDS ORDERED: diazePAM 5 MG TABLET PO SCH (10:00)
[2018-11-06] MEDS: amLODIPine BESYLATE 10 MG TABLET (FP) PO SCH (10:35)
[2018-11-06] MEDS: PRENATAL VITAMINS W/ FOLIC ACID TABLET (FP) PO SCH (10:35)
--- NOTE | 2018-11-06 11:12 | PN ---
[facility] Progress Note (SOAP) Subjective: sweats anxiety Objective: 11/06/18 11:14 Vital Signs Temperature 98.4 F 11/06/18 09:51 Pulse Rate 73 11/06/18 09:51 Respiratory Rate 18 11/06/18 09:51 Blood Pressure 101/71 11/06/18 09:51 O2 Sat by Pulse Oximetry (%) aaox3 ambulating no acute distress Assessment: 11/06/18 11:14 withdrawal sx Plan: continue detox increase fluids d/c in am
[2018-11-06] MEDS: hydrOXYzine PAMOATE 50 MG CAPSULE (FP) PO PRN ×2 (17:39→21:55)
[2018-11-06] MEDS: traZODone HCL 100 MG TABLET (FP) PO SCH (21:55)
[2018-11-06] MEDS: THIAMINE HCL 100 MG TABLET (FP) PO SCH (21:55)
[2018-11-07] MEDS ORDERED: METHADONE HCL 5 MG TABLET (FOR DETOX USE ONLY) PO SCH (06:00)
[2018-11-07 08:14] VITALS: BP 106/77; PULSE 71; TEMP 97.7
== END 2018-11-07 07:52 | disposition home or self-care (01) | DRG 773 ==
LOC: YASAS 10:28 → Y6N 12:22
PROVIDERS: ADMIT Neuromusculoskeletal Medicine & OMM; ATTEND Neuromusculoskeletal Medicine & OMM
PROC: HZ2ZZZZ Detoxification Services for Substance Abuse Treatment (ICD-10-PCS; principal; 2018-11-02)
DX: F11.23 Opioid dependence with withdrawal (principal); F10.230 Alcohol dependence with withdrawal, uncomplicated; F13.230 Sedative, hypnotic or anxiolytic dependence with withdrawal, uncomplicated; F17.210 Nicotine dependence, cigarettes, uncomplicated; I10 Essential (primary) hypertension; J45.20 Mild intermittent asthma, uncomplicated; Z86.69 Personal history of other diseases of the nervous system and sense organs; Z91.14 Patient's other noncompliance with medication regimen
CPT/HCPCS: 36415; 80053; 85027; 86593

== ENCOUNTER 2019-04-30 14:41 | Inpatient (IN) | payer OTHER ==
[2019-04-30 16:17] VITALS: BMI 25.3
--- NOTE | 2019-04-30 18:46 | HP ---
COWS - Scale Resting Pulse: 0= [place] 80 or Below Sweatin= Chills/Flushing Restless Observation: 0= Sits Still Pupil Size: 0= Normal to Room Light Bone or Joint Aches: 1= Mild Discomfort Runny Nose/ Eye Tearin= Runny Nose/Eyes GI Upset > 30mins: 1= Stomach Cramp Tremor Observation: 2= Slight Tremor Visible Yawning Observation: 4= Several Times/Minute Anxiety or Irritability: 1=Feels Anxious/Irritable Goose Flesh Skin: 0=Smooth Skin COWS Score: 12 CIWA Score Nausea/Vomitin-Mild Nausea/No Vomiting Muscle Tremors: 2 Anxiety: 3 Agitation: 3 Paroxysmal Sweats: No Perspiration Orientation: 0-Oriented Tacttile Disturbances: 0-None Auditory Disturbances: 0-None Visual Disturbances: 0-None Headache: 3-Moderate CIWA-Ar Total Score: 12 - Admission Criteria [facility] Guidelines: Admission for Medically Managed Detox: Requires at least one of the followin. CIWA greater than 12 2. Seizures within the past 24 hours 3. Delirium tremens within the past 24 hours 4. Hallucinations within the past 24 hours 5. Acute intervention needed for co occurring medical disorder 6. Acute intervention needed for co occurring psychiatric disorder 7. Severe withdrawal that cannot be handled at a lower level of care (continued vomiting, continued diarrhea, abnormal vital signs) requiring intravenous medication and/or fluids 8. Admission [facility] Allergies/Adverse Reactions: Allergies Allergy/AdvReac Type Severity Reaction Status Date / Time No Known Allergies Allergy Verified 04/30/19 16:02 History of Present Illness: 39 y/o/m here for heroin and alcohol use. He was last here in October of this year and he remained free from drug use for 3 months. Then he decided to try one bag of heroin which lead him to start using drugs again and his use has worsened since. He is using 10 bags of heroin everyday which he uses by sniffing , he denies any IV use. He last used heroin this morning. He is drinking half a pint of liquor everyday. He starts drinking at noon and if he does not drink he starts to shake. His last drink was last night. He is prescribed Klonopin, 1mg BID, by his psychiatrist in [place] but he does not recall the doctors name. He has been getting Klonopin for 6 months due to anxiety and states he is taking it everyday. He smokes half a pack of cigarettes daily. He denies any other illicit substance use. PMHx of Asthma and HTN. He had surgery at age 3 for regurgitation as a child but denies any surgeries since. He is living with a friend currently and is unemployed. He states he was on a methadone program last year but has not used Methadone in over a year. - Ebola screening Have you traveled outside of the country in the last 21 days: No (N) Have you had contact with anyone from an Ebola affected area: No Do you have a fever: No - Review of Systems Constitutional: No Symptoms Reported EENT: reports: Nose Congestion Respiratory: reports: Cough. denies: Shortness of Breath Cardiac: denies: Chest Pain GI: reports: Abdominal cramping. denies: Diarrhea Musculoskeletal: reports: No Symptoms Reported Integumentary: reports: Pruritus Neuro: reports: Headache Psychiatric: reports: Agitated, Anxious, Depressed Other Systems: Reviewed and Negative Patient History - Patient Medical History Hx Anemia: No Hx Asthma: Yes Hx Chronic Obstructive Pulmonary Disease (COPD): No Hx Cancer: No Hx Cardiac Disorders: No Hx Congestive Heart Failure: No Hx Hypertension: Yes (non compliant with meds.) Hx Hypercholesterolemia: No Hx Pacemaker: No HX Cerebrovascular Accident: No Hx Seizures: No Hx Dementia: No Hx Diabetes: No Hx Gastrointestinal Disorders: No Hx Liver Disease: No Hx Genitourinary Disorders: No Hx Sexually Transmitted Disorders: No Hx Renal Disease (ESRD): No Hx Thyroid Disease: No Hx Human Immunodeficiency Virus (HIV): No (Neg results) Hx Hepatitis C: No Hx Depression: Yes Hx Suicide Attempt: No Hx Bipolar Disorder: No Hx Schizophrenia: No Other Medical History: no suicidal or homicidal ideations - Patient Surgical History Past Surgical History: Yes Hx Neurologic Surgery: No Hx Cataract Extraction: No Hx Cardiac Surgery: No Hx Lung Surgery: No Hx Breast Surgery: No Hx Breast Biopsy: No Hx Abdominal Surgery: Yes (at age 3) Hx Appendectomy: No Hx Cholecystectomy: No Hx Genitourinary Surgery: No Hx Section: No Hx Orthopedic Surgery: No Anesthesia Reaction: No - PPD History Previous Implant?: Yes Documented Results: Negative w/o proof Implanted On Prior R Admission?: Yes Date: 08/14/18 Results: 0 mm PPD to be Administered?: No - Smoking Cessation Smoking history: Current every day smoker Have you smoked in the past 12 months: Yes Aproximately how many cigarettes per day: 10 Hx Chewing Tobacco Use: No Initiated information on smoking cessation: Yes 'Breaking Loose' booklet given: 04/30/19 - Substance & Tx. History Hx Alcohol Use: Yes Substance Use Type: Alcohol, Heroin - Substances abused Alcohol Substance route: Oral Frequency: Daily Amount used: 0.5 PINT Age of first use: 14 Date of last use: 04/29/19 Heroin Substance route: Inhalation Frequency: Daily Amount used: 9 BAGS Age of first use: 24 Date of last use: 04/30/19 Benzodiazepine (Klonopin) Substance route: Oral Frequency: Daily Amount used: 2mg Age of first use: 38 Date of last use: 04/29/19 Family Disease History - Family Disease History Family Disease History: Diabetes: Mother (alive, HTN), Heart Disease: Mother, Other: Mother Admission Physical Exam [facility] - Vital Signs Vital Signs: Vital Signs - 24 hr 04/30/19 16:00 Temperature 98.4 F Pulse Rate 65 Respiratory 14 Rate Blood Pressure 147/85 - Physical General Appearance: Yes: Mild Distress HEENTM: Yes: EOMI, Normocephalic, Rhinorrhea Respiratory: Yes: No Accessory Muscle Use, Wheezing (bilateral expiratory wheezing) Neck: Yes: Supple Cardiology: Yes: Regular Rhythm, Regular Rate, S1, S2 Abdominal: Yes: Normal Bowel Sounds, Non Tender, Soft Musculoskeletal: Yes: Gait Steady Extremities: Yes: Normal Capillary Refill. No: Swelling Neurological: Yes: agency service representative II-XII NML intact, Fully Oriented, Alert, Motor Strength 5/5 Integumentary: Yes: Dry - Diagnostic (1) Alcohol use disorder Current Visit: Yes Status: Acute (2) Opioid use disorder Current Visit: Yes Status: Acute (3) Anxiety Current Visit: No Status: Chronic (4) Asthma Current Visit: No Status: Chronic Qualifiers: Asthma severity: mild Asthma persistence: intermittent Asthma complication type: uncomplicated Qualified Code(s): J45.20 - Mild intermittent asthma, uncomplicated (5) Hypertension Current Visit: No Status: Chronic Qualifiers: Hypertension type: essential hypertension Qualified Code(s): I10 - Essential (primary) hypertension (6) Nicotine dependence Current Visit: No Status: Chronic Cleared for Admission [facility] - Detox or Rehab [facility] Level of Care: Medically Supervised 2Day Detox Regimen/Protocol: Methadone/Valium Breathalyzer - Breathalyzer Breathalyzer: 0 Urine Drug Screen - Test Device Lot number: [id number] Expiration date: 02/16/21 - Results Drug screen NEGATIVE: Yes Urine drug screen results: MOP-Opiates, OXY-Oxycodone, MTD-Methadone, BZO- Benzodiazepines Inpatient Rehab Admission - Rehab Decision to Admit Inpatient rehab admission?: No
--- NOTE | 2019-04-30 19:11 | PN ---
"Teaching Attending Note Name of Resident: Gretel Martino ATTENDING PHYSICIAN STATEMENT I saw and evaluated the patient. I reviewed the resident's note and discussed the case with the resident. I agree with the resident's findings and plan as documented. SUBJECTIVE: pt here requesting detox from etoh use , reports relapse 2 mo after d/c from this facility , went to detox in [place] , completed , sober x 1 mo relapsed using etoh and heroin , current daily use heroin 7-9 bags via inhalation , latest use this morning , etoh 1/2 pint /day , denies blackouts, seizures , or tremors . denies recent methadone use , carla no longer in [facility] , reports past [facility] x 10 years w/ sobriety x 3-5 years , tapered off at his request February 2018 from [facility] 120 mg , started using heroin during taper and continued use . cocaine : denies tobacco : 1/2 ppd denies other illicits. OBJECTIVE: This report was requested by: Lori Mccoy | Reference #: [id number] Others' Prescriptions Patient Name: Alber Penn Date: 1980 Address: [address] [place] [address] Sex: Male Rx Written Rx Dispensed Drug Quantity Days Supply Prescriber Name 02/16/2019 02/16/2019 clonazepam 1 mg tablet 60 30 Hakan Huang MD 01/11/2019 01/11/2019 clonazepam 1 mg tablet 60 30 Hakan Huang MD Patient Name: Alber Penn Date: 1980 Address: [address] [address] Sex: Male Rx Written Rx Dispensed Drug Quantity Days Supply Prescriber Name 01/13/2019 01/13/2019 diazepam 10 mg tablet 23 6 Waqar Bernardo) 01/13/2019 01/13/2019 buprenorphine-naloxone 4-1 mg sl film 12 6 Waqar Bernardo () ASSESSMENT AND PLAN: Opioid dependence - Methadone taper alcohol dependence - Valium taper ."
[2019-04-30] MEDS ORDERED: ACETAMINOPHEN 325 MG TABLET (FP) PO PRN (19:56)
[2019-04-30] MEDS ORDERED: MENTHOL/PHENOL 1 EACH UD MM PRN (19:56)
[2019-04-30] MEDS ORDERED: hydrOXYzine PAMOATE 25 MG CAPSULE (FP) PO PRN (19:56)
[2019-04-30] MEDS ORDERED: BISMUTH SUBSALICYLATE 524 MG/30 ML UD PO PRN (19:56)
[2019-04-30] MEDS ORDERED: METHOCARBAMOL 500 MG TABLET PO PRN (19:56)
[2019-04-30] MEDS ORDERED: MAGNESIUM HYDROX 2400MG/30ML ORAL SUSPENSION 30 ML CUP PO PRN (19:56)
[2019-04-30] MEDS ORDERED: MAG HYDROX/AL HYDROX/SIMETH 30 ML UNIT-DOSE CUP PO PRN (19:56)
[2019-04-30] MEDS ORDERED: MELATONIN 5 MG TABLETS PO PRN (19:56)
[2019-04-30] MEDS ORDERED: MAGNESIUM CITRATE 300 ML BOTTLE PO PRN (19:56)
[2019-04-30] MEDS ORDERED: cloNIDine HCL 0.1 MG TABLET PO PRN (19:56)
[2019-04-30] MEDS ORDERED: METHADONE HCL 10 MG TABLET (FOR DETOX USE ONLY) PO ONE (20:15)
[2019-04-30] MEDS: diazePAM 5 MG TABLET PO PRN (21:01)
[2019-04-30] MEDS: amLODIPine BESYLATE 10 MG TABLET (FP) PO SCH (21:01)
[2019-04-30] MEDS: THIAMINE HCL 100 MG TABLET (FP) PO SCH (22:21)
[2019-04-30] MEDS: diazePAM 5 MG TABLET PO SCH (22:21)
[2019-05-01] MEDS: diazePAM 5 MG TABLET PO SCH ×3 (05:20→22:27)
[2019-05-01] MEDS: ALBUTEROL SO4 8 GM HFA INHALER IH PRN ×2 (07:00→14:41)
--- NOTE | 2019-05-01 09:36 | CONSULT ---
[facility] Psychiatric Consult - Data Date of interview: 05/01/19 Admission source: [facility] Identifying data: Patient is a 39 year old single male, without children, unemployed, homeless, and denies receiving financial assistance. This is one of multiple admissions for patient. Patient admitted to for alcohol and opiate dependence. Substance Abuse History: Smoking Cessation. Smoking history: Current every day smoker. Have you smoked in the past 12 months: Yes. Aproximately how many cigarettes per day: 10. Hx Chewing Tobacco Use: No. Initiated information on smoking cessation: Yes. 'Breaking Loose' booklet given: 04/30/19. - Substance & Tx. History. Hx Alcohol Use: Yes. Substance Use Type: Alcohol, Heroin. - Substances abused. Alcohol. Substance route: Oral. Frequency: Daily. Amount used: 0.5 PINT. Age of first use: 14. Date of last use: 04/29/19. Heroin. Substance route: Inhalation. Frequency: Daily. Amount used: 9 BAGS. Age of first use: 24. Date of last use: 04/30/19. Benzodiazepine (Klonopin) . Substance route: Oral. Frequency: Daily. Amount used: 2mg. Age of first use: 38. Date of last use: 04/29/19 Medical History: Significant for bronchial asthma, hypertension, chronic low back pain and history of abdominal surgery at 6 months old Psychiatric History: Patient denies h/o psychiatric hospitalizations, and suicide attempt. Patient reports h/o outpatient psychiatric care. Mr. Penn last saw a psychiatrist 9 months ago in [place], [place] and was treated for anxiety and prescribed klonopin and trazodone. Patient continues to receive trazodone 150mg from his Primary care physician (external records reviewed and medication verified). At present, patient reports feeling sad, anxious, and is experiencing difficulty sleeping. Physical/Sexual Abuse/Trauma History: denies. Mental Status Exam - Mental Status Exam Alert and Oriented to: Time, Place, Person Cognitive Function: Good Patient Appearance: Well Groomed Mood: Sad Affect: Mood Congruent Patient Behavior: Cooperative Speech Pattern: Appropriate Voice Loudness: Normal Thought Process: Goal Oriented Thought Disorder: Not Present Hallucinations: Denies Suicidal Ideation: Denies Homicidal Ideation: Denies Insight/Judgement: Poor Sleep: Poorly Appetite: Fair Muscle strength/Tone: Normal Gait/Station: Normal Psychiatric Findings - Problem List ([place] 1, 2,3) (1) Substance-induced anxiety disorder Current Visit: Yes Status: Acute (2) Alcohol use disorder Current Visit: Yes Status: Acute (3) Opioid use disorder Current Visit: Yes Status: Acute (4) Substance induced mood disorder Current Visit: Yes Status: Acute (5) Substance-induced sleep disorder Current Visit: Yes Status: Acute (6) Opioid dependence with withdrawal Current Visit: Yes Status: Acute - Initial Treatment Plan Initial Treatment Plan: Psychoeducation provided. Detoxification in progress. Will order Trazodone 150mg HS. Benefits and side effects discussed. Verbal consent given.
[2019-05-01] MEDS ORDERED: METHADONE HCL 5 MG TABLET (FOR DETOX USE ONLY) PO ONE (10:00)
[2019-05-01] MEDS: PRENATAL VITAMINS W/ FOLIC ACID TABLET (FP) PO SCH (10:01)
[2019-05-01] MEDS: amLODIPine BESYLATE 10 MG TABLET (FP) PO SCH (10:01)
[2019-05-01] MEDS: diazePAM 5 MG TABLET PO PRN ×2 (10:06→19:40)
[2019-05-01 10:40] LABS: ALBUMIN 3.8 g/dl (3.4-5.0); BILIRUBIN,TOTAL 0.6 mg/dL (0.2-1); BLOOD UREA NITROGEN 10.2 mg/dL (7-18); CALCIUM 9.1 mg/dL (8.5-10.1); CREATININE 0.7 mg/dL (0.55-1.3); POTASSIUM 4.2 mmol/L (3.5-5.1); TOT PROT 7.1 g/dl (6.4-8.2)
[2019-05-01 10:46] LABS: HEMATOCRIT 42.6 % (35.4-49); HEMOGLOBIN 14.4 GM/dL (11.7-16.9); MCH 30.3 pg (25.7-33.7); MCHC 33.9 g/dl (32.0-35.9); MEAN CELL VOLUME 89.5 fl (80-96); RBC 4.75 M/mm3 (4.00-5.60); RDW 14.1 % (11.9-15.9); WHITE BLOOD COUNT 9.4 K/mm3 (4.0-10.0)
[2019-05-01 11:02] LABS: PLATELET COUNT 183 K/MM3 (134-434)
--- NOTE | 2019-05-01 12:05 | PN ---
[facility] CIWA - CIWA Score Nausea/Vomitin-No Nausea/No Vomiting Muscle Tremors: 2 Anxiety: 3 Agitation: 2 Paroxysmal Sweats: 3 Orientation: 0-Oriented Tacttile Disturbances: 0-None Auditory Disturbances: 0-None Visual Disturbances: 0-None Headache: 1-Very Mild CIWA-Ar Total Score: 11 S COWS - Scale Resting Pulse: 1= [place] 81-100 Sweatin= Chills/Flushing Restless Observation: 1= Difficult to Sit Still Pupil Size: 0= Normal to Room Light Bone or Joint Aches: 2= Severe Diffuse Aches Runny Nose/ Eye Tearin= Runny Nose/Eyes GI Upset > 30mins: 1= Stomach Cramp Tremor Observation of Outstretched Hands: 2= Slight Tremor Visible Yawning Observation: 1= 1-2x During Session Anxiety or Irritability: 1=Feels Anxious/Irritable Goose Flesh Skin: 0=Smooth Skin COWS Score: 12 S Progress Note (SOAP) Subjective: c/o stomach cramp, runny nose/eyes, cough, and interrupted sleep. Objective: 05/01/19 12:04 Vital Signs 05/01/19 05/01/19 06:00 09:20 Temperature 97.9 F 98.2 F Pulse Rate 82 83 Respiratory 16 18 Rate Blood Pressure 132/84 146/99 Lab Results WBC 9.4 K/mm3 (4.0-10.0) 05/01/19 07:50 RBC 4.75 M/mm3 (4.00-5.60) 05/01/19 07:50 Hgb 14.4 GM/dL (11.7-16.9) 05/01/19 07:50 Hct 42.6 % (35.4-49) 05/01/19 07:50 MCV 89.5 fl (80-96) 05/01/19 07:50 MCHC 33.9 g/dl (32.0-35.9) 05/01/19 07:50 RDW 14.1 % (11.9-15.9) 05/01/19 07:50 Plt Count 183 K/MM3 (134-434) 05/01/19 07:50 Sodium 140 mmol/L (136-145) 05/01/19 07:50 Potassium 4.2 mmol/L (3.5-5.1) 05/01/19 07:50 Chloride 105 mmol/L (98-107) 05/01/19 07:50 Carbon Dioxide 33 mmol/L (21-32) H 05/01/19 07:50 Anion Gap 3 MMOL/L (8-16) L 05/01/19 07:50 BUN 10.2 mg/dL (7-18) 05/01/19 07:50 Creatinine 0.7 mg/dL (0.55-1.3) 05/01/19 07:50 Random Glucose 86 mg/dL (74-106) 05/01/19 07:50 Calcium 9.1 mg/dL (8.5-10.1) 05/01/19 07:50 Labs noted. Assessment: 05/01/19 12:05 AOX3, in no acute respiratory distress Full ROM, ambulating in the unit. Withdrawal symptoms. Plan: continue detox.
[2019-05-01] MEDS: traZODone HCL 50 MG TABLET (FP) PO SCH (22:27)
[2019-05-01] MEDS: THIAMINE HCL 100 MG TABLET (FP) PO SCH (22:28)
[2019-05-01] MEDS: IBUPROFEN 400 MG TABLET (FP) PO PRN (22:30)
[2019-05-02] MEDS: diazePAM 5 MG TABLET PO SCH ×2 (05:14→17:54)
[2019-05-02] MEDS: ALBUTEROL SO4 8 GM HFA INHALER IH PRN ×2 (07:26→22:20)
[2019-05-02] MEDS: PRENATAL VITAMINS W/ FOLIC ACID TABLET (FP) PO SCH (09:46)
[2019-05-02] MEDS: amLODIPine BESYLATE 10 MG TABLET (FP) PO SCH (09:46)
[2019-05-02] MEDS: IBUPROFEN 400 MG TABLET (FP) PO PRN (09:49)
[2019-05-02] MEDS: guaiFENesin 200 MG/10 ML 10 ML UNIT-DOSE CUPS PO PRN (09:50)
[2019-05-02] MEDS ORDERED: METHADONE HCL 10 MG TABLET (FOR DETOX USE ONLY) PO ONE (10:00)
[2019-05-02] MEDS: ACETAMINOPHEN 325 MG TABLET (FP) PO PRN (15:12)
--- NOTE | 2019-05-02 15:30 | PN ---
S CIWA - CIWA Score Nausea/Vomitin-Mild Nausea/No Vomiting Muscle Tremors: 2 Anxiety: 3 Agitation: 2 Paroxysmal Sweats: 3 Orientation: 0-Oriented Tacttile Disturbances: 0-None Auditory Disturbances: 0-None Visual Disturbances: 0-None Headache: 0-None Present CIWA-Ar Total Score: 11 BHS COWS - Scale Resting Pulse: 1= [place] 81-100 Sweatin= Chills/Flushing Restless Observation: 3= Extraneous Movement Pupil Size: 0= Normal to Room Light Bone or Joint Aches: 2= Severe Diffuse Aches Runny Nose/ Eye Tearin= Nasal Congestion GI Upset > 30mins: 1= Stomach Cramp Tremor Observation of Outstretched Hands: 2= Slight Tremor Visible Yawning Observation: 0= None Anxiety or Irritability: 1=Feels Anxious/Irritable Goose Flesh Skin: 0=Smooth Skin COWS Score: 12 BHS Progress Note (SOAP) Subjective: Runny nose, back pain, headache, stuffy nose, sweating, feels anxious with palpitation in chest intermittently (gets palpitation when anxious); denies chest pain or sob. Patient stated that he is supposed to discharge tomorrow and he is having a lot of withdrawal symptoms and need longer treatment. Objective: 05/02/19 15:27 Last Vital Signs Temp Pulse Resp BP Pulse Ox 97.6 F 89 18 138/92 05/02/19 14:07 05/02/19 14:07 05/02/19 14:07 05/02/19 14:07 Laboratory Tests 05/01/19 05/01/19 05/01/19 07:50 07:50 07:50 WBC 9.4 RBC 4.75 Hgb 14.4 Hct 42.6 MCV 89.5 MCH 30.3 MCHC 33.9 RDW 14.1 Plt Count 183 MPV 9.0 D Sodium 140 Potassium 4.2 Chloride 105 Carbon Dioxide 33 H Anion Gap 3 L BUN 10.2 Creatinine 0.7 Est GFR (CKD-EPI)AfAm 136.81 Est GFR (CKD-EPI)NonAf 118.04 Random Glucose 86 Calcium 9.1 Total Bilirubin 0.6 AST 9 L ALT 12 L Alkaline Phosphatase 76 Total Protein 7.1 Albumin 3.8 RPR Titer Nonreactive Labs reviewed Assessment: 05/02/19 15:28 Withdrawal symptoms Plan: Continue detox Encouraged PO water intake Patient c/o increased withdrawal symptoms. Valium 5mg PO bid ordered for tomorrow then 5mg on Friday. Hopefully, patient will feel better by then. Encouraged to take prn medication. Encouraged inpatient rehab. Continue to monitor patient.
[2019-05-02] MEDS: traZODone HCL 50 MG TABLET (FP) PO SCH (22:16)
[2019-05-02] MEDS: THIAMINE HCL 100 MG TABLET (FP) PO SCH (22:16)
[2019-05-02] MEDS: diazePAM 5 MG TABLET PO PRN (22:19)
[2019-05-03] MEDS: guaiFENesin 200 MG/10 ML 10 ML UNIT-DOSE CUPS PO PRN (06:00)
[2019-05-03] MEDS ORDERED: diazePAM 5 MG TABLET PO ONE (06:00)
[2019-05-03] MEDS ORDERED: METHADONE HCL 5 MG TABLET (FOR DETOX USE ONLY) PO ONE (06:00)
[2019-05-03] MEDS: diazePAM 5 MG TABLET PO PRN (06:00)
[2019-05-03] MEDS: ALBUTEROL SO4 8 GM HFA INHALER IH PRN (06:03)
[2019-05-03 06:21] VITALS: BP 133/78; PULSE 100; TEMP 99.7
--- NOTE | 2019-05-03 09:37 | DS ---
[facility] Detox Discharge Summary Admission Date: 04/30/19 Discharge Date: 05/03/19 - History Present History: Alcohol Dependence, Opioid Dependence - Physical Exam Results Vital Signs: Vital Signs Temperature 99.7 F H 05/03/19 06:00 Pulse Rate 100 H 05/03/19 06:00 Respiratory Rate 16 05/03/19 06:00 Blood Pressure 133/78 05/03/19 06:00 O2 Sat by Pulse Oximetry (%) Pertinent Admission Physical Exam Findings: pt arrived in withdrawals Vital Signs Temperature 99.7 F H 05/03/19 06:00 Pulse Rate 100 H 05/03/19 06:00 Respiratory Rate 16 05/03/19 06:00 Blood Pressure 133/78 05/03/19 06:00 O2 Sat by Pulse Oximetry (%) Laboratory Tests 05/01/19 05/01/19 05/01/19 07:50 07:50 07:50 WBC 9.4 RBC 4.75 Hgb 14.4 Hct 42.6 MCV 89.5 MCH 30.3 MCHC 33.9 RDW 14.1 Plt Count 183 MPV 9.0 D Sodium 140 Potassium 4.2 Chloride 105 Carbon Dioxide 33 H Anion Gap 3 L BUN 10.2 Creatinine 0.7 Est GFR (CKD-EPI)AfAm 136.81 Est GFR (CKD-EPI)NonAf 118.04 Random Glucose 86 Calcium 9.1 Total Bilirubin 0.6 AST 9 L ALT 12 L Alkaline Phosphatase 76 Total Protein 7.1 Albumin 3.8 RPR Titer Nonreactive - Treatment Hospital Course: Detox Protocol Followed, Detoxed Safely, Responded well, Discharged Condition Good, Rehab Referral Accepted - Medication Discharge Medications: Ambulatory Orders Albuterol Sulfate Inhaler - [Ventolin HFA Inhaler -] 2 inh PO Q4H PRN #1 inhaler 08/27/18 Amlodipine Besylate [Norvasc -] 10 mg PO DAILY #30 tablet 08/27/18 Clonazepam [Klonopin] 1 mg PO BID 04/30/19 Clonidine HCl 0.3 mg PO BID 04/30/19 Propranolol HCl 40 mg PO DAILY 04/30/19 traZODone HCL [Desyrel -] 150 mg PO HS 04/30/19 - Diagnosis (1) Opioid dependence with withdrawal Current Visit: Yes Status: Acute (2) Substance induced mood disorder Current Visit: Yes Status: Acute (3) Substance-induced anxiety disorder Current Visit: Yes Status: Acute (4) Substance-induced sleep disorder Current Visit: Yes Status: Acute (5) History of seizure Current Visit: No Status: Suspected (6) Substance induced mood disorder Current Visit: No Status: Acute (7) Substance-induced sleep disorder Current Visit: No Status: Acute (8) Alcohol dependence with withdrawal Current Visit: Yes Status: Chronic Qualifiers: Complication of substance-induced condition: uncomplicated Qualified Code(s ): F10.230 - Alcohol dependence with withdrawal, uncomplicated (9) Anxiety Current Visit: No Status: Chronic (10) Asthma Current Visit: Yes Status: Chronic Qualifiers: Asthma severity: mild Asthma persistence: intermittent Asthma complication type: uncomplicated Qualified Code(s): J45.20 - Mild intermittent asthma, uncomplicated (11) Chronic lower back pain Current Visit: Yes Status: Chronic Qualifiers: Back pain laterality: unspecified Sciatica presence: without sciatica Qualified Code(s): M54.5 - Low back pain; G89.29 - Other chronic pain (12) Depression Current Visit: No Status: Chronic (13) Hypertension Current Visit: Yes Status: Chronic Qualifiers: Hypertension type: essential hypertension Qualified Code(s): I10 - Essential (primary) hypertension (14) Nicotine dependence Current Visit: Yes Status: Chronic Qualifiers: Nicotine product type: cigarettes Substance use status: uncomplicated Qualified Code(s): F17.210 - Nicotine dependence, cigarettes, uncomplicated - AMA Did Patient Leave Against Medical Advice: No (pt decline after care; going home will attend aa meeting)
[2019-05-03] MEDS: amLODIPine BESYLATE 10 MG TABLET (FP) PO SCH (09:46)
[2019-05-03] MEDS: PRENATAL VITAMINS W/ FOLIC ACID TABLET (FP) PO SCH (09:47)
[2019-05-03] MEDS: ACETAMINOPHEN 325 MG TABLET (FP) PO PRN (09:49)
[2019-05-03] MEDS ORDERED: diazePAM 5 MG TABLET PO SCH (10:00)
[2019-05-04] MEDS ORDERED: diazePAM 5 MG TABLET PO ONE (06:00)
== END 2019-05-03 10:12 | disposition home or self-care (01) | DRG 773 ==
LOC: YASAS 14:41 → Y6N 20:05
PROVIDERS: ADMIT Surgery; ATTEND Surgery
PROC: HZ2ZZZZ Detoxification Services for Substance Abuse Treatment (ICD-10-PCS; principal; 2019-04-30)
DX: F11.23 Opioid dependence with withdrawal (principal); F10.230 Alcohol dependence with withdrawal, uncomplicated; F13.230 Sedative, hypnotic or anxiolytic dependence with withdrawal, uncomplicated; F17.210 Nicotine dependence, cigarettes, uncomplicated; F19.24 Other psychoactive substance dependence with psychoactive substance-induced mood disorder; F19.280 Other psychoactive substance dependence with psychoactive substance-induced anxiety disorder; F19.282 Other psychoactive substance dependence with psychoactive substance-induced sleep disorder; F32.9 Major depressive disorder, single episode, unspecified; F41.9 Anxiety disorder, unspecified; I10 Essential (primary) hypertension; J45.20 Mild intermittent asthma, uncomplicated; M54.5 Low back pain; G89.29 Other chronic pain
CPT/HCPCS: 36415; 80053; 85027; 86593

== ENCOUNTER 2019-09-08 14:09 | Inpatient (IN) | payer OTHER ==
[2019-09-08 15:11] VITALS: BMI 26.6
--- NOTE | 2019-09-08 18:13 | HP ---
COWS - Scale Resting Pulse: 0= [place] 80 or Below Sweatin= Chills/Flushing Restless Observation: 0= Sits Still Pupil Size: 0= Normal to Room Light Bone or Joint Aches: 0= None Runny Nose/ Eye Tearin= Runny Nose/Eyes GI Upset > 30mins: 1= Stomach Cramp Tremor Observation: 2= Slight Tremor Visible Yawning Observation: 0= None Anxiety or Irritability: 2=Irritable/Anxious Goose Flesh Skin: 0=Smooth Skin COWS Score: 8 CIWA Score Nausea/Vomitin-No Nausea/No Vomiting Muscle Tremors: 4-Moderate,w/Arms Extend Anxiety: 4-Mod. Anxious/Guarded Agitation: 1-Slight > Activity Paroxysmal Sweats: 3 Orientation: 0-Oriented Tacttile Disturbances: 0-None Auditory Disturbances: 0-None Visual Disturbances: 0-None Headache: 0-None Present CIWA-Ar Total Score: 12 - Admission Criteria OASAS Guidelines: Admission for Medically Managed Detox: Requires at least one of the followin. CIWA greater than 12 2. Seizures within the past 24 hours 3. Delirium tremens within the past 24 hours 4. Hallucinations within the past 24 hours 5. Acute intervention needed for co occurring medical disorder 6. Acute intervention needed for co occurring psychiatric disorder 7. Severe withdrawal that cannot be handled at a lower level of care (continued vomiting, continued diarrhea, abnormal vital signs) requiring intravenous medication and/or fluids 8. Patient presents the following: CIWA greater than 12 Admission Criteria Met: Admission criteria met Admitting History and Physical - Smoking History Smoking history: Current every day smoker Have you smoked in the past 12 months: Yes Aproximately how many cigarettes per day: 10 - Alcohol/Substance Use Hx Alcohol Use: Yes Admission [facility] Chief Complaint: C/O WITHDRAWAL SX'S. SEEKING DETOX FROM ALCOHOL, HEROIN, KLONOPINS Allergies/Adverse Reactions: Allergies Allergy/AdvReac Type Severity Reaction Status Date / Time No Known Allergies Allergy Verified 09/08/19 14:55 History of Present Illness: HERE FOR HEROIN, ALCOHOL AND BENZO DETOX. CLIENT IS SELF REFERRED. REPORTS DAILY USE OF ALL 3 SUBSTANCES. LAST USE OF ALCOHOL AND KLONOPIN 1 DAY AGO. CLIENT STATES HE USED 3 BAGS OF HEROIN TODAY. NOW HERE WITH C/O WITHDRAWAL SX' S. HIS ADDICTION STARTED AT THE AGE OF 14 WITH ALCOHOL. 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 REPORTS MOST RECENT CLEAN TIME 3 MONTHS RELAPSING IN 07/2019. LIVES ALONE, UNEMPLOYED- WELFARE, DENIES LEGALS. Exam Limitations: No Limitations - Ebola screening Have you traveled outside of the country in the last 21 days: No Have you had contact with anyone from an Ebola affected area: No Do you have a fever: No - Review of Systems Constitutional: Chills, Loss of Appetite, Night Sweats, Changes in sleep EENT: reports: Blurred Vision (GLASSES), Nose Congestion Respiratory: reports: No Symptoms reported Cardiac: reports: No Symptoms Reported GI: reports: Poor Appetite, Abdominal cramping : reports: No Symptoms Reported Musculoskeletal: reports: No Symptoms Reported Integumentary: reports: Dryness Neuro: reports: Tremors (R/T WITHDRAWAL) Endocrine: reports: No Symptoms Reported Hematology: reports: No Symptoms Reported Psychiatric: reports: Orientated x3, Anxious, Depressed (DENIES SI) Other Systems: Reviewed and Negative (IRRITABLE) Patient History - Patient Medical History Hx Anemia: No Hx Asthma: Yes Hx Chronic Obstructive Pulmonary Disease (COPD): No Hx Cancer: No Hx Cardiac Disorders: No Hx Congestive Heart Failure: No Hx Hypertension: Yes Hx Hypercholesterolemia: No Hx Pacemaker: No HX Cerebrovascular Accident: No Hx Seizures: No Hx Dementia: No Hx Diabetes: No Hx Gastrointestinal Disorders: No Hx Liver Disease: No Hx Genitourinary Disorders: No Hx Sexually Transmitted Disorders: No Hx Renal Disease (ESRD): No Hx Thyroid Disease: No Hx Human Immunodeficiency Virus (HIV): No Hx Hepatitis C: No Hx Depression: Yes Hx Suicide Attempt: No Hx Bipolar Disorder: No Hx Schizophrenia: No Other Medical History: DENIES - Patient Surgical History Past Surgical History: Yes Hx Neurologic Surgery: No Hx Cataract Extraction: No Hx Cardiac Surgery: No Hx Lung Surgery: No Hx Breast Surgery: No Hx Breast Biopsy: No Hx Abdominal Surgery: Yes (at age 3) Hx Appendectomy: No Hx Cholecystectomy: No Hx Genitourinary Surgery: No Hx Section: No Hx Orthopedic Surgery: No Anesthesia Reaction: No - PPD History Previous Implant?: Yes Documented Results: Negative w/proof Implanted On Prior R Admission?: Yes Date: 08/14/18 Results: 0 mm PPD to be Administered?: Yes - Smoking Cessation Smoking history: Current every day smoker Have you smoked in the past 12 months: Yes Aproximately how many cigarettes per day: 20 Cigars Per Day: 0 Hx Chewing Tobacco Use: No Initiated information on smoking cessation: Yes 'Breaking Loose' booklet given: 09/08/19 - Substance & Tx. History Hx Alcohol Use: Yes Hx Substance Use: Yes Substance Use Type: Alcohol, Heroin, Tranquilizers (KLONOPINS) Hx Substance Use Treatment: Yes ([facility]) - Substances abused Alcohol Substance route: Oral Frequency: Daily Amount used: 1/2 pint Age of first use: 14 Date of last use: 09/07/19 Heroin Substance route: Inhalation Frequency: Daily Amount used: 12 bags Age of first use: 20 Date of last use: 09/08/19 Benzodiazepine (Klonopin) Substance route: Oral Frequency: Daily Amount used: 2mg Age of first use: 38 Date of last use: 09/07/19 Admission Physical Exam BHS - Vital Signs Vital Signs: Vital Signs - 24 hr 09/08/19 15:01 Temperature 98.3 F Pulse Rate 70 Respiratory 20 Rate Blood Pressure 115/77 - Physical General Appearance: Yes: Mild Distress, Tremorous (FELT), Anxious HEENTM: Yes: EOMI, Normocephalic, Normal Voice, RONNIE, Pharynx Normal, Other ( POOR DENTITION MISSING TEETH) Respiratory: Yes: Chest Non-Tender, Lungs Clear, Normal Breath Sounds, No Respiratory Distress, No Accessory Muscle Use Neck: Yes: No masses,lesions,Nodules, Supple, Trachea in good position Breast: Yes: Breasts Symetrical Cardiology: Yes: Regular Rhythm, Regular Rate, S1, S2 Abdominal: Yes: Non Tender, Soft, Increased Bowel Sounds Genitourinary: Yes: Within Normal Limits (NO C/O OFFERED) Back: Yes: Normal Inspection Musculoskeletal: Yes: full range of Motion, Gait Steady Extremities: Yes: Normal Capillary Refill, Normal Range of Motion, Non-Tender, Tremors (FELT) Neurological: Yes: Fully Oriented, Alert, Motor Strength 5/5, Depressed Affect ( DENIES SI/HI) Integumentary: Yes: Dry, Cold Lymphatic: Yes: Within Normal Limits - Diagnostic (1) Benzodiazepine withdrawal without complication Current Visit: Yes Status: Acute (2) Opioid dependence with withdrawal Current Visit: Yes Status: Acute (3) Substance induced mood disorder Current Visit: Yes Status: Suspected (4) Alcohol dependence with withdrawal Current Visit: Yes Status: Acute Qualifiers: Complication of substance-induced condition: uncomplicated Qualified Code(s ): F10.230 - Alcohol dependence with withdrawal, uncomplicated (5) Asthma Current Visit: Yes Status: Chronic Qualifiers: Asthma severity: mild Asthma persistence: intermittent Asthma complication type: uncomplicated Qualified Code(s): J45.20 - Mild intermittent asthma, uncomplicated (6) Depression Current Visit: Yes Status: Chronic (7) Hypertension Current Visit: Yes Status: Chronic Qualifiers: Hypertension type: essential hypertension Qualified Code(s): I10 - Essential (primary) hypertension (8) Nicotine dependence Current Visit: Yes Status: Chronic Qualifiers: Nicotine product type: cigarettes Substance use status: uncomplicated Qualified Code(s): F17.210 - Nicotine dependence, cigarettes, uncomplicated Cleared for Admission BHS - Detox or Rehab S Level of Care: Medically Managed Detox Regimen/Protocol: Methadone/Valium Claeared for Rehab Admission: No Breathalyzer - Breathalyzer Breathalyzer: 0 Urine Drug Screen - Test Device Lot number: [id number] Expiration date: 05/19/21 - Control Is test valid?: Yes - Results Drug screen NEGATIVE: No Urine drug screen results: TOBY-Cocaine, BZO-Benzodiazepines Inpatient Rehab Admission - Rehab Decision to Admit Inpatient rehab admission?: No
[2019-09-08] MEDS ORDERED: ALBUTEROL SO4 8 GM HFA INHALER IH PRN (18:17)
[2019-09-08] MEDS ORDERED: MENTHOL/PHENOL 1 EACH UD MM PRN (18:19)
[2019-09-08] MEDS ORDERED: DICYCLOMINE HCL 10 MG CAPSULE PO PRN (18:19)
[2019-09-08] MEDS ORDERED: hydrOXYzine PAMOATE 25 MG CAPSULE (FP) PO PRN (18:19)
[2019-09-08] MEDS ORDERED: MAG HYDROX/AL HYDROX/SIMETH 30 ML UNIT-DOSE CUP PO PRN (18:19)
[2019-09-08] MEDS ORDERED: NICOTINE POLACRILEX 2 MG GUM BUC PRN (18:19)
[2019-09-08] MEDS ORDERED: MAGNESIUM CITRATE 300 ML BOTTLE PO PRN (18:19)
[2019-09-08] MEDS ORDERED: MELATONIN 5 MG TABLETS PO PRN (18:19)
[2019-09-08] MEDS ORDERED: guaiFENesin 200 MG/10 ML 10 ML UNIT-DOSE CUPS PO PRN (18:19)
[2019-09-08] MEDS ORDERED: MAGNESIUM HYDROX 2400MG/30ML ORAL SUSPENSION 30 ML CUP PO PRN (18:19)
[2019-09-08] MEDS ORDERED: BISMUTH SUBSALICYLATE 524 MG/30 ML UD PO PRN (18:19)
[2019-09-08] MEDS ORDERED: ONDANSETRON *ODT* 4 MG TABLET SL PRN (18:19)
[2019-09-08] MEDS ORDERED: METHOCARBAMOL 500 MG TABLET PO PRN (18:19)
[2019-09-08] MEDS ORDERED: ACETAMINOPHEN 325 MG TABLET (FP) PO PRN ×2 (18:19)
[2019-09-08] MEDS ORDERED: P-EPHED 60MG/TRIPROLIDI 2.5MG TABLET PO PRN (18:19)
[2019-09-08] MEDS ORDERED: IBUPROFEN 400 MG TABLET (FP) PO PRN (18:19)
[2019-09-08] MEDS ORDERED: NALOXONE HCL 0.4 MG/ML VIAL IM PRN (18:40)
[2019-09-08] MEDS ORDERED: METHADONE HCL 10 MG TABLET (FOR DETOX USE ONLY) PO ONE (18:40)
[2019-09-08] MEDS: diazePAM 5 MG TABLET PO SCH (22:26)
[2019-09-08] MEDS: THIAMINE HCL 100 MG TABLET (FP) PO SCH (22:26)
[2019-09-09] MEDS: diazePAM 5 MG TABLET PO SCH ×3 (05:53→22:24)
--- NOTE | 2019-09-09 08:33 | CONSULT ---
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 This is one of multiple admissions for patient. Patient admitted to for alcohol and opiate dependence. Substance Abuse History: Smoking Cessation. Smoking history: Current every day smoker. Have you smoked in the past 12 months: Yes. Aproximately how many cigarettes per day: 20. Cigars Per Day: 0. Hx Chewing Tobacco Use: No. Initiated information on smoking cessation: Yes. 'Breaking Loose' booklet given : 09/08/19. - Substance & Tx. History. Hx Alcohol Use: Yes. Hx Substance Use : Yes. Substance Use Type: Alcohol, Heroin, Tranquilizers (KLONOPINS). Hx Substance Use Treatment: Yes ([facility]). - Substances abused. Alcohol. Substance route: Oral. Frequency: Daily. Amount used: 1/2 pint. Age of first use: 14. Date of last use: 09/07/19. Heroin. Substance route: Inhalation. Frequency: Daily. Amount used: 12 bags. Age of first use: 20. Date of last use: 09/08/19. Benzodiazepine (Klonopin). Substance route: Oral. Frequency : Daily. Amount used: 2mg. Age of first use: 38. Date of last use: 09/07/19 Medical History: Asthma, hypertension, Abdominal Surgery (age 3) Psychiatric History: Patient denies history of psychiatric hospitalizations, and suicide attempt. Mr. Penn reports history of outpatient psychiatric care in [place], [place] (unable to recall the name of the clinic or physician). Reports last seeing the psychiatrist nine months ago. States he was prescribed trazodone 150mg and klonopin 1mg BID. Reports receiving refills of trazodone 150mg from his primary care physician. External medication history reports that an electronic prescription of trazodone 150mg was most recently sent to patient' s pharmacy on 04/05/19 (30 tablets). At present patient reports feeling sad. Physical/Sexual Abuse/Trauma History: denies. Mental Status Exam - Mental Status Exam Alert and Oriented to: Time, Place, Person Cognitive Function: Good Patient Appearance: Well Groomed Mood: Withdrawn Affect: Mood Congruent Patient Behavior: Appropriate, Cooperative Speech Pattern: Appropriate Voice Loudness: Moderately Soft/Quiet Thought Process: Intact, Goal Oriented Thought Disorder: Not Present Hallucinations: Denies Suicidal Ideation: Denies Homicidal Ideation: Denies Insight/Judgement: Poor Sleep: Poorly Appetite: Fair Muscle strength/Tone: Normal Gait/Station: Normal Psychiatric Findings - Problem List ([place] 1, 2,3) (1) Cocaine dependence Status: Acute (2) Alcohol dependence with withdrawal Status: Acute Qualifiers: Complication of substance-induced condition: uncomplicated Qualified Code(s ): F10.230 - Alcohol dependence with withdrawal, uncomplicated (3) Substance induced mood disorder Status: Suspected (4) Substance-induced sleep disorder Status: Acute - Initial Treatment Plan Initial Treatment Plan: Psychoeducation provided. Detoxification in progress. Will order Trazodone 100mg HS (reduced dose) Benefits and side effects discussed. Verbal consent given.
[2019-09-09] MEDS ORDERED: METHADONE HCL 10 MG TABLET (FOR DETOX USE ONLY) ONE (08:45)
[2019-09-09] MEDS ORDERED: METHADONE HCL 5 MG TABLET (FOR DETOX USE ONLY) ONE (08:45)
[2019-09-09] MEDS: diazePAM 5 MG TABLET PO PRN (08:59)
[2019-09-09 09:42] LABS: HEMATOCRIT 40.4 % (35.4-49); HEMOGLOBIN 13.5 GM/dL (11.7-16.9); MCHC 33.4 g/dl (32.0-35.9); MEAN CELL VOLUME 89.8 fl (80-96); MEAN PLT VOLUME 9.4 fl (7.5-11.1); PLATELET COUNT 187 K/MM3 (134-434); RBC 4.49 M/mm3 (4.00-5.60); RDW 13.8 % (11.9-15.9); WHITE BLOOD COUNT 12.2 K/mm3 (4.0-10.0)
[2019-09-09] MEDS ORDERED: METHADONE (DETOX) 20 MG, METHADONE (DETOX) 5 MG PO ONE (10:00)
[2019-09-09 10:02] LABS: ALBUMIN 3.3 g/dl (3.4-5.0); BILIRUBIN,TOTAL 0.3 mg/dL (0.2-1); BLOOD UREA NITROGEN 10.6 mg/dL (7-18); CALCIUM 8.6 mg/dL (8.5-10.1); CREATININE 0.7 mg/dL (0.55-1.3); POTASSIUM 4.2 mmol/L (3.5-5.1); TOT PROT 6.1 g/dl (6.4-8.2)
[2019-09-09] MEDS: PRENATAL VITAMINS W/ FOLIC ACID TABLET (FP) PO SCH (10:11)
[2019-09-09] MEDS: amLODIPine BESYLATE 10 MG TABLET (FP) PO SCH (10:12)
--- NOTE | 2019-09-09 10:28 | PN ---
[facility] CIWA - CIWA Score Nausea/Vomitin-Mild Nausea/No Vomiting Muscle Tremors: 3 Anxiety: 2 Agitation: 2 Paroxysmal Sweats: 2 Orientation: 0-Oriented Tacttile Disturbances: 1-Very Mild Itch/Numbness Auditory Disturbances: 0-None Visual Disturbances: 0-None Headache: 0-None Present CIWA-Ar Total Score: 11 BHS COWS - Scale Resting Pulse: 0= [place] 80 or Below Sweatin= Chills/Flushing Restless Observation: 0= Sits Still Pupil Size: 1= Pupils >than Normal Bone or Joint Aches: 1= Mild Discomfort Runny Nose/ Eye Tearin= None GI Upset > 30mins: 1= Stomach Cramp Tremor Observation of Outstretched Hands: 1= Tremor [place], Not Seen Yawning Observation: 1= 1-2x During Session Anxiety or Irritability: 1=Feels Anxious/Irritable Goose Flesh Skin: 3=Piloerection COWS Score: 10 S Progress Note (SOAP) Subjective: 39 years old male admitted on 09/08/19 for alcohol benzo opiate withdrawal sx management treated wtih valium and methadone detox regimen long history of hypertension treated wt amlopidine and propenolol patient was not taking antihypertensive medication regularly during the alcohol drinking health teaching on uncontrolled bp elevation Objective: 09/09/19 10:28 Vital Signs Temperature 97.9 F 09/09/19 09:10 Pulse Rate 70 09/09/19 09:10 Respiratory Rate 18 09/09/19 09:10 Blood Pressure 157/95 09/09/19 09:10 O2 Sat by Pulse Oximetry (%) Laboratory Last Values WBC 12.2 K/mm3 (4.0-10.0) H 09/09/19 07:40 RBC 4.49 M/mm3 (4.00-5.60) 09/09/19 07:40 Hgb 13.5 GM/dL (11.7-16.9) 09/09/19 07:40 Hct 40.4 % (35.4-49) 09/09/19 07:40 MCV 89.8 fl (80-96) 09/09/19 07:40 MCH 30.0 pg (25.7-33.7) 09/09/19 07:40 MCHC 33.4 g/dl (32.0-35.9) 09/09/19 07:40 RDW 13.8 % (11.9-15.9) 09/09/19 07:40 Plt Count 187 K/MM3 (134-434) 09/09/19 07:40 MPV 9.4 fl (7.5-11.1) 09/09/19 07:40 Sodium 140 mmol/L (136-145) 09/09/19 07:40 Potassium 4.2 mmol/L (3.5-5.1) 09/09/19 07:40 Chloride 106 mmol/L (98-107) 09/09/19 07:40 Carbon Dioxide 31 mmol/L (21-32) 09/09/19 07:40 Anion Gap 3 MMOL/L (8-16) L 09/09/19 07:40 BUN 10.6 mg/dL (7-18) 09/09/19 07:40 Creatinine 0.7 mg/dL (0.55-1.3) 09/09/19 07:40 Est GFR (CKD-EPI)AfAm 136.81 09/09/19 07:40 Est GFR (CKD-EPI)NonAf 118.04 09/09/19 07:40 Random Glucose 80 mg/dL (74-106) 09/09/19 07:40 Calcium 8.6 mg/dL (8.5-10.1) 09/09/19 07:40 Total Bilirubin 0.3 mg/dL (0.2-1) 09/09/19 07:40 AST 14 U/L (15-37) L 09/09/19 07:40 ALT 16 U/L (13-61) 09/09/19 07:40 Alkaline Phosphatase 83 U/L (45-117) 09/09/19 07:40 Total Protein 6.1 g/dl (6.4-8.2) L 09/09/19 07:40 Albumin 3.3 g/dl (3.4-5.0) L 09/09/19 07:40 lab noted 09/09/19 10:29 wbc elevation ua pending Assessment: 09/09/19 10:29 alcohol benzo opiate withdrawal sx management Plan: continue valium and methadone detox regimen
[2019-09-09] MEDS: NICOTINE 21 MG/24 HOURS TOPICAL PATCH TD SCH (10:42)
[2019-09-09] MEDS: THIAMINE HCL 100 MG TABLET (FP) PO SCH (22:24)
[2019-09-09] MEDS: traZODone HCL 100 MG TABLET (FP) PO SCH (22:24)
[2019-09-09 22:34] LABS: PH,URINE 7.5 (5.0-8.0); URINE APPEARANCE TURBID; URINE BILIRUBIN NEGATIVE (NEGATIVE); URINE COLOR YELLOW; URINE GLUCOSE (UA) NEGATIVE (NEGATIVE); URINE KETONE NEGATIVE (NEGATIVE); URINE LEUK ESTERASE NEGATIVE (NEGATIVE); URINE NITRITE NEGATIVE (NEGATIVE); URINE PROTEIN NEGATIVE (NEGATIVE); URINE UROBILINOGEN 0.2 mg/dL (0.2-1.0)
[2019-09-10] MEDS: diazePAM 5 MG TABLET PO SCH ×2 (05:58→17:20)
[2019-09-10] MEDS: diazePAM 5 MG TABLET PO PRN (08:17)
[2019-09-10] MEDS ORDERED: METHADONE HCL 10 MG TABLET (FOR DETOX USE ONLY) PO ONE (10:00)
[2019-09-10] MEDS: amLODIPine BESYLATE 10 MG TABLET (FP) PO SCH (10:16)
[2019-09-10] MEDS: PRENATAL VITAMINS W/ FOLIC ACID TABLET (FP) PO SCH (10:16)
[2019-09-10] MEDS: NICOTINE 21 MG/24 HOURS TOPICAL PATCH TD SCH (10:16)
--- NOTE | 2019-09-10 13:22 | PN ---
S CIWA - CIWA Score Nausea/Vomitin-Mild Nausea/No Vomiting Muscle Tremors: 2 Anxiety: 2 Agitation: 2 Paroxysmal Sweats: 1-Minimal Palms Moist Orientation: 0-Oriented Tacttile Disturbances: 1-Very Mild Itch/Numbness Auditory Disturbances: 0-None Visual Disturbances: 0-None Headache: 2-Mild CIWA-Ar Total Score: 11 BHS COWS - Scale Resting Pulse: 0= [place] 80 or Below Sweatin= Chills/Flushing Restless Observation: 1= Difficult to Sit Still Pupil Size: 1= Pupils >than Normal Bone or Joint Aches: 1= Mild Discomfort Runny Nose/ Eye Tearin= Runny Nose/Eyes GI Upset > 30mins: 2= Nausea/Diarrhea Tremor Observation of Outstretched Hands: 2= Slight Tremor Visible Yawning Observation: 1= 1-2x During Session Anxiety or Irritability: 2=Irritable/Anxious Goose Flesh Skin: 0=Smooth Skin COWS Score: 13 S Progress Note (SOAP) Subjective: alert,irritable,anxious,interrupted sleep,tremor,pain in the body Objective: 09/10/19 13:20 Vital Signs Temperature 97.4 F L 09/10/19 09:25 Pulse Rate 76 09/10/19 09:25 Respiratory Rate 18 09/10/19 09:25 Blood Pressure 140/88 09/10/19 09:25 O2 Sat by Pulse Oximetry (%) 09/10/19 13:20 Laboratory Last Values WBC 12.2 K/mm3 (4.0-10.0) H 09/09/19 07:40 RBC 4.49 M/mm3 (4.00-5.60) 09/09/19 07:40 Hgb 13.5 GM/dL (11.7-16.9) 09/09/19 07:40 Hct 40.4 % (35.4-49) 09/09/19 07:40 MCV 89.8 fl (80-96) 09/09/19 07:40 MCH 30.0 pg (25.7-33.7) 09/09/19 07:40 MCHC 33.4 g/dl (32.0-35.9) 09/09/19 07:40 RDW 13.8 % (11.9-15.9) 09/09/19 07:40 Plt Count 187 K/MM3 (134-434) 09/09/19 07:40 MPV 9.4 fl (7.5-11.1) 09/09/19 07:40 Sodium 140 mmol/L (136-145) 09/09/19 07:40 Potassium 4.2 mmol/L (3.5-5.1) 09/09/19 07:40 Chloride 106 mmol/L (98-107) 09/09/19 07:40 Carbon Dioxide 31 mmol/L (21-32) 09/09/19 07:40 Anion Gap 3 MMOL/L (8-16) L 09/09/19 07:40 BUN 10.6 mg/dL (7-18) 09/09/19 07:40 Creatinine 0.7 mg/dL (0.55-1.3) 09/09/19 07:40 Est GFR (CKD-EPI)AfAm 136.81 09/09/19 07:40 Est GFR (CKD-EPI)NonAf 118.04 09/09/19 07:40 Random Glucose 80 mg/dL (74-106) 09/09/19 07:40 Calcium 8.6 mg/dL (8.5-10.1) 09/09/19 07:40 Total Bilirubin 0.3 mg/dL (0.2-1) 09/09/19 07:40 AST 14 U/L (15-37) L 09/09/19 07:40 ALT 16 U/L (13-61) 09/09/19 07:40 Alkaline Phosphatase 83 U/L (45-117) 09/09/19 07:40 Total Protein 6.1 g/dl (6.4-8.2) L 09/09/19 07:40 Albumin 3.3 g/dl (3.4-5.0) L 09/09/19 07:40 Urine Color Yellow 09/09/19 18:33 Urine Appearance Turbid 09/09/19 18:33 Urine pH 7.5 (5.0-8.0) D 09/09/19 18:33 Ur Specific [place] 1.016 (1.010-1.035) 09/09/19 18:33 Urine Protein Negative (NEGATIVE) 09/09/19 18:33 Urine Glucose (UA) Negative (NEGATIVE) 09/09/19 18:33 Urine Ketones Negative (NEGATIVE) 09/09/19 18:33 Urine Blood Negative (NEGATIVE) 09/09/19 18:33 Urine Nitrite Negative (NEGATIVE) 09/09/19 18:33 Urine Bilirubin Negative (NEGATIVE) 09/09/19 18:33 Urine Urobilinogen 0.2 mg/dL (0.2-1.0) 09/09/19 18:33 Ur Leukocyte Esterase Negative (NEGATIVE) 09/09/19 18:33 Assessment: 09/10/19 13:21 withdrawal symptom Plan: continue detox methadone and valium regimen,repeat cbc in am,wbs 12,200, probavly dehydration,encourage oral fluid
[2019-09-10] MEDS: THIAMINE HCL 100 MG TABLET (FP) PO SCH (22:15)
[2019-09-10] MEDS: traZODone HCL 100 MG TABLET (FP) PO SCH (22:15)
[2019-09-11] MEDS ORDERED: diazePAM 5 MG TABLET PO ONE (06:00)
[2019-09-11 09:28] VITALS: BP 123/85; PULSE 78; TEMP 97.6
[2019-09-11] MEDS ORDERED: METHADONE (DETOX) 10 MG, METHADONE (DETOX) 5 MG PO ONE (10:00)
[2019-09-11] MEDS: amLODIPine BESYLATE 10 MG TABLET (FP) PO SCH (10:21)
[2019-09-11] MEDS: diazePAM 5 MG TABLET PO PRN (10:21)
[2019-09-11] MEDS: PRENATAL VITAMINS W/ FOLIC ACID TABLET (FP) PO SCH (10:21)
[2019-09-11] MEDS ORDERED: METHADONE HCL 5 MG TABLET (FOR DETOX USE ONLY) ONE (10:22)
[2019-09-11] MEDS: NICOTINE 21 MG/24 HOURS TOPICAL PATCH TD SCH (10:22)
[2019-09-11] MEDS ORDERED: METHADONE HCL 10 MG TABLET (FOR DETOX USE ONLY) ONE (10:22)
[2019-09-11 10:54] LABS: HEMATOCRIT 40.3 % (35.4-49); HEMOGLOBIN 13.6 GM/dL (11.7-16.9); MCH 30.6 pg (25.7-33.7); MCHC 33.8 g/dl (32.0-35.9); MEAN CELL VOLUME 90.5 fl (80-96); MEAN PLT VOLUME 9.4 fl (7.5-11.1); PLATELET COUNT 209 K/MM3 (134-434); RBC 4.45 M/mm3 (4.00-5.60); RDW 13.8 % (11.9-15.9); WHITE BLOOD COUNT 8.9 K/mm3 (4.0-10.0)
--- NOTE | 2019-09-11 11:02 | PN ---
S CIWA - CIWA Score Nausea/Vomitin-No Nausea/No Vomiting Muscle Tremors: None Anxiety: 3 Agitation: 0-Normal Activity Paroxysmal Sweats: 3 Orientation: 0-Oriented Tacttile Disturbances: 0-None Auditory Disturbances: 0-None Visual Disturbances: 0-None Headache: 2-Mild CIWA-Ar Total Score: 8 BHS COWS - Scale Resting Pulse: 0= [place] 80 or Below Sweatin= Chills/Flushing Restless Observation: 1= Difficult to Sit Still Pupil Size: 0= Normal to Room Light Bone or Joint Aches: 1= Mild Discomfort Runny Nose/ Eye Tearin= None GI Upset > 30mins: 0= None Tremor Observation of Outstretched Hands: 0= None Yawning Observation: 1= 1-2x During Session Anxiety or Irritability: 2=Irritable/Anxious Goose Flesh Skin: 0=Smooth Skin COWS Score: 6 BHS Progress Note (SOAP) Subjective: c/o anxiety, irritability, sweats, muscle aches, and headache. Objective: 09/11/19 11:01 Vital Signs 09/11/19 09/11/19 09/11/19 03:30 06:31 09:28 Temperature 97.2 F L 97.6 F Pulse Rate 73 78 Respiratory 18 18 20 Rate Blood Pressure 114/69 123/85 Laboratory Last Values WBC 8.9 K/mm3 (4.0-10.0) 09/11/19 07:40 RBC 4.45 M/mm3 (4.00-5.60) 09/11/19 07:40 Hgb 13.6 GM/dL (11.7-16.9) 09/11/19 07:40 Hct 40.3 % (35.4-49) 09/11/19 07:40 MCV 90.5 fl (80-96) 09/11/19 07:40 MCH 30.6 pg (25.7-33.7) 09/11/19 07:40 MCHC 33.8 g/dl (32.0-35.9) 09/11/19 07:40 RDW 13.8 % (11.9-15.9) 09/11/19 07:40 Plt Count 209 K/MM3 (134-434) 09/11/19 07:40 MPV 9.4 fl (7.5-11.1) 09/11/19 07:40 Sodium 140 mmol/L (136-145) 09/09/19 07:40 Potassium 4.2 mmol/L (3.5-5.1) 09/09/19 07:40 Chloride 106 mmol/L (98-107) 09/09/19 07:40 Carbon Dioxide 31 mmol/L (21-32) 09/09/19 07:40 Anion Gap 3 MMOL/L (8-16) L 09/09/19 07:40 BUN 10.6 mg/dL (7-18) 09/09/19 07:40 Creatinine 0.7 mg/dL (0.55-1.3) 09/09/19 07:40 Est GFR (CKD-EPI)AfAm 136.81 09/09/19 07:40 Est GFR (CKD-EPI)NonAf 118.04 09/09/19 07:40 Random Glucose 80 mg/dL (74-106) 09/09/19 07:40 Calcium 8.6 mg/dL (8.5-10.1) 09/09/19 07:40 Total Bilirubin 0.3 mg/dL (0.2-1) 09/09/19 07:40 AST 14 U/L (15-37) L 09/09/19 07:40 ALT 16 U/L (13-61) 09/09/19 07:40 Alkaline Phosphatase 83 U/L (45-117) 09/09/19 07:40 Total Protein 6.1 g/dl (6.4-8.2) L 09/09/19 07:40 Albumin 3.3 g/dl (3.4-5.0) L 09/09/19 07:40 Urine Color Yellow 09/09/19 18:33 Urine Appearance Turbid 09/09/19 18:33 Urine pH 7.5 (5.0-8.0) D 09/09/19 18:33 Ur Specific [place] 1.016 (1.010-1.035) 09/09/19 18:33 Urine Protein Negative (NEGATIVE) 09/09/19 18:33 Urine Glucose (UA) Negative (NEGATIVE) 09/09/19 18:33 Urine Ketones Negative (NEGATIVE) 09/09/19 18:33 Urine Blood Negative (NEGATIVE) 09/09/19 18:33 Urine Nitrite Negative (NEGATIVE) 09/09/19 18:33 Urine Bilirubin Negative (NEGATIVE) 09/09/19 18:33 Urine Urobilinogen 0.2 mg/dL (0.2-1.0) 09/09/19 18:33 Ur Leukocyte Esterase Negative (NEGATIVE) 09/09/19 18:33 Labs noted. Assessment: 09/11/19 11:01 AOX3, in no acute respiratory distress. Full ROM, ambulating in the unit. Withdrawal symptoms. Plan: continue detox.
--- NOTE | 2019-09-11 16:03 | DS ---
[facility] Detox Discharge Summary Admission Date: 09/08/19 Discharge Date: 09/11/19 (Left AMA) - History Present History: Alcohol Dependence, Cocaine Dependence, Opioid Dependence, Sedative Dependence Additional Comments: Pt left AMA. pt did not complete the detox protocol. Pt states he has to go and take care of something. An attempt to let pt stay and complete the detox protocol failed. Pt is encouraged to follow-up with [facility] outpatient program and also to follow-up with his pmd. Pt verbalized understanding. Pt is alert and oriented x3 and in no respiratory distress. Pertinent Past History: h/o HTN, asthma, alcohol, heroin, and benzo use disorder. - Physical Exam Results Vital Signs: Vital Signs Temperature 97.6 F 09/11/19 09:28 Pulse Rate 78 09/11/19 09:28 Respiratory Rate 20 09/11/19 09:28 Blood Pressure 123/85 09/11/19 09:28 O2 Sat by Pulse Oximetry (%) Pertinent Admission Physical Exam Findings: withdrawal symptoms. - Treatment Hospital Course: Detox Protocol Followed - Medication Discharge Medications: Ambulatory Orders Albuterol Sulfate Inhaler - [Ventolin HFA Inhaler -] 2 inh PO Q4H PRN #1 inhaler 08/27/18 Amlodipine Besylate [Norvasc -] 10 mg PO DAILY #30 tablet 08/27/18 Clonazepam [Klonopin] 1 mg PO BID 04/30/19 Clonidine HCl 0.2 mg PO BID 04/30/19 Propranolol HCl 40 mg PO DAILY 04/30/19 traZODone HCL [Desyrel -] 150 mg PO HS 04/30/19 Naloxone HCl [Narcan] 4 mg NS ASDIR PRN #1 spray 09/09/19 - Diagnosis (1) Alcohol dependence with withdrawal Status: Acute Qualifiers: Complication of substance-induced condition: uncomplicated Qualified Code(s ): F10.230 - Alcohol dependence with withdrawal, uncomplicated (2) Benzodiazepine withdrawal without complication Status: Acute (3) Cocaine dependence Status: Acute (4) Opioid dependence with withdrawal Status: Acute (5) Asthma Status: Chronic Qualifiers: Asthma severity: mild Asthma persistence: intermittent Asthma complication type: uncomplicated Qualified Code(s): J45.20 - Mild intermittent asthma, uncomplicated (6) Chronic lower back pain Status: Chronic Qualifiers: Back pain laterality: unspecified Sciatica presence: without sciatica Qualified Code(s): M54.5 - Low back pain; G89.29 - Other chronic pain (7) Hypertension Status: Chronic Qualifiers: Hypertension type: essential hypertension Qualified Code(s): I10 - Essential (primary) hypertension (8) Nicotine dependence Status: Chronic Qualifiers: Nicotine product type: cigarettes Substance use status: uncomplicated Qualified Code(s): F17.210 - Nicotine dependence, cigarettes, uncomplicated (9) History of seizure Status: Suspected - AMA Did Patient Leave Against Medical Advice: Yes
[2019-09-12] MEDS ORDERED: METHADONE HCL 10 MG TABLET (FOR DETOX USE ONLY) PO ONE (10:00)
[2019-09-13] MEDS ORDERED: METHADONE HCL 5 MG TABLET (FOR DETOX USE ONLY) PO ONE (06:00)
== END 2019-09-11 11:50 | disposition left against medical advice (07) | DRG 894 ==
LOC: YASAS 14:09 → Y3N 19:03
PROVIDERS: ADMIT Allergy & Immunology; ATTEND Allergy & Immunology
PROC: HZ2ZZZZ Detoxification Services for Substance Abuse Treatment (ICD-10-PCS; principal; 2019-09-08)
DX: F10.230 Alcohol dependence with withdrawal, uncomplicated (principal); F14.20 Cocaine dependence, uncomplicated; F19.282 Other psychoactive substance dependence with psychoactive substance-induced sleep disorder; F11.23 Opioid dependence with withdrawal; F13.230 Sedative, hypnotic or anxiolytic dependence with withdrawal, uncomplicated; F17.210 Nicotine dependence, cigarettes, uncomplicated; F19.24 Other psychoactive substance dependence with psychoactive substance-induced mood disorder; F32.9 Major depressive disorder, single episode, unspecified; I10 Essential (primary) hypertension; J45.20 Mild intermittent asthma, uncomplicated; M54.5 Low back pain; G89.29 Other chronic pain; Z86.69 Personal history of other diseases of the nervous system and sense organs
CPT/HCPCS: 36415; 80053; 81003; 85027

== ENCOUNTER 2019-11-06 10:52 | Inpatient (IN) | payer OTHER ==
[2019-11-06 11:31] VITALS: BMI 26.1
--- NOTE | 2019-11-06 13:17 | HP ---
"COWS - Scale Resting Pulse: 1= [place] 81-100 Sweatin= Chills/Flushing Restless Observation: 0= Sits Still Pupil Size: 0= Normal to Room Light Bone or Joint Aches: 0= None Runny Nose/ Eye Tearin= None GI Upset > 30mins: 1= Stomach Cramp Tremor Observation: 1= Tremor [place], Not Seen Yawning Observation: 0= None Anxiety or Irritability: 1=Feels Anxious/Irritable Goose Flesh Skin: 0=Smooth Skin COWS Score: 5 CIWA Score Nausea/Vomitin-No Nausea/No Vomiting Muscle Tremors: None Anxiety: 1-Mildly Anxious Agitation: 0-Normal Activity Paroxysmal Sweats: 1-Minimal Palms Moist Orientation: 2-Disoriented Date<2 days Tacttile Disturbances: 0-None Auditory Disturbances: 0-None Visual Disturbances: 0-None Headache: 0-None Present CIWA-Ar Total Score: 4 - Admission Criteria OASAS Guidelines: Admission for Medically Managed Detox: Requires at least one of the followin. CIWA greater than 12 2. Seizures within the past 24 hours 3. Delirium tremens within the past 24 hours 4. Hallucinations within the past 24 hours 5. Acute intervention needed for co occurring medical disorder 6. Acute intervention needed for co occurring psychiatric disorder 7. Severe withdrawal that cannot be handled at a lower level of care (continued vomiting, continued diarrhea, abnormal vital signs) requiring intravenous medication and/or fluids 8. Admitting History and Physical - Smoking History Smoking history: Current every day smoker Have you smoked in the past 12 months: Yes Aproximately how many cigarettes per day: 20 - Alcohol/Substance Use Hx Alcohol Use: Yes Admission [facility] Allergies/Adverse Reactions: Allergies Allergy/AdvReac Type Severity Reaction Status Date / Time No Known Allergies Allergy Verified 11/06/19 11:25 History of Present Illness: This report was requested by: Lori Mccoy | Reference #: [id number] Others' Prescriptions Patient Name: Alber Penn Date: 1980 Address: [address] [place] [address] Sex: Male Rx Written Rx Dispensed Drug Quantity Days Supply Prescriber Name 02/16/2019 02/16/2019 clonazepam 1 mg tablet 60 30 Hakan Huang MD 01/11/2019 01/11/2019 clonazepam 1 mg tablet 60 30 Hakan Huang MD Patient Name: Alber Penn Date: 1980 Address: [place] [address] Sex: Male Rx Written Rx Dispensed Drug Quantity Days Supply Prescriber Name 01/13/2019 01/13/2019 diazepam 10 mg tablet 23 6 Waqar Bernardo) 01/13/2019 01/13/2019 buprenorphine-naloxone 4-1 mg sl film 12 6 Waqar Bernardo) pt here requesting detox from etoh use , reports relapse from this facility current daily use heroin 12 bags via inhalation latest use today on premises , etoh 1/2 pint /day , denies blackouts, seizures , or tremors . tobacco : 1/2 ppd denies other illicits. pharmacy of record- medication rx August 2018 . Exam Limitations: Clinical Condition, Intoxication - Ebola screening Have you traveled outside of the country in the last 21 days: No (N) Have you had contact with anyone from an Ebola affected area: No Do you have a fever: No - Review of Systems Constitutional: Loss of Appetite EENT: reports: No Symptoms Reported Respiratory: reports: No Symptoms reported Cardiac: reports: No Symptoms Reported GI: reports: Poor Appetite, Abdominal cramping : reports: No Symptoms Reported Musculoskeletal: reports: No Symptoms Reported Integumentary: reports: No Symptoms Reported Neuro: reports: No Symptoms reported Endocrine: reports: No Symptoms Reported Psychiatric: reports: Anxious, Disorientated Patient History - Patient Medical History Hx Anemia: No Hx Asthma: Yes Hx Chronic Obstructive Pulmonary Disease (COPD): No Hx Cancer: No Hx Cardiac Disorders: No Hx Congestive Heart Failure: No Hx Hypertension: Yes Hx Hypercholesterolemia: No Hx Pacemaker: No HX Cerebrovascular Accident: No Hx Seizures: No Hx Dementia: No Hx Diabetes: No Hx Gastrointestinal Disorders: No Hx Liver Disease: No Hx Genitourinary Disorders: No Hx Sexually Transmitted Disorders: No Hx Renal Disease (ESRD): No Hx Thyroid Disease: No Hx Human Immunodeficiency Virus (HIV): No Hx Hepatitis C: No Hx Depression: Yes Hx Suicide Attempt: No Hx Bipolar Disorder: No Hx Schizophrenia: No - Patient Surgical History Past Surgical History: Yes Hx Neurologic Surgery: No Hx Cataract Extraction: No Hx Cardiac Surgery: No Hx Lung Surgery: No Hx Breast Surgery: No Hx Breast Biopsy: No Hx Abdominal Surgery: Yes (at age 3) Hx Appendectomy: No Hx Cholecystectomy: No Hx Genitourinary Surgery: No Hx Section: No Hx Orthopedic Surgery: No Anesthesia Reaction: No - PPD History Date: 09/10/19 Results: 0 mm - Smoking Cessation Smoking history: Current every day smoker Have you smoked in the past 12 months: Yes Aproximately how many cigarettes per day: 20 Cigars Per Day: 0 Hx Chewing Tobacco Use: No Initiated information on smoking cessation: Yes 'Breaking Loose' booklet given: 11/06/19 - Substances abused Alcohol Substance route: Oral Frequency: Daily Amount used: 1/2 PINT OF VODKA Age of first use: 14 Date of last use: 11/05/19 Heroin Substance route: Inhalation Frequency: Daily Amount used: 12 BAGS Age of first use: 23 Date of last use: 11/06/19 Admission Physical Exam S - Vital Signs Vital Signs: Vital Signs - 24 hr 11/06/19 11:27 Temperature 99.0 F Pulse Rate 75 Respiratory 18 Rate Blood Pressure 130/91 - Physical General Appearance: Yes: Mild Distress, Intoxicated, Anxious, Other (drowsy) HEENTM: Yes: EOMI, Hearing grossly Normal, Normocephalic, Normal Voice Respiratory: Yes: Chest Non-Tender, Lungs Clear, Normal Breath Sounds, No Respiratory Distress, No Accessory Muscle Use Neck: Yes: No masses,lesions,Nodules, Trachea in good position Cardiology: Yes: Regular Rhythm, Regular Rate, S1, S2 Abdominal: Yes: Normal Bowel Sounds, Non Tender, Soft Back: Yes: Normal Inspection Musculoskeletal: Yes: Gait Steady Extremities: Yes: Normal Range of Motion, Non-Tender Neurological: Yes: Fully Oriented, Alert, Motor Strength 5/5 Integumentary: Yes: Warm - Addiitonal Findings: will admit for pt's safety due to recent use and high risk of OD , contraband brought into facility with intent to use. - Diagnostic (1) Opioid intoxication Current Visit: Yes Status: Acute Qualifiers: Complication of substance-induced condition: uncomplicated Qualified Code(s ): F11.920 - Opioid use, unspecified with intoxication, uncomplicated (2) Nicotine dependence Current Visit: Yes Status: Chronic Qualifiers: Nicotine product type: cigarettes Substance use status: uncomplicated Qualified Code(s): F17.210 - Nicotine dependence, cigarettes, uncomplicated Breathalyzer - Breathalyzer Breathalyzer: 0 Urine Drug Screen - Test Device Lot number: [id number] Expiration date: 05/19/21 - Control Is test valid?: Yes - Results Drug screen NEGATIVE: No Urine drug screen results: MOP-Opiates, BZO-Benzodiazepines Inpatient Rehab Admission - Rehab Decision to Admit Inpatient rehab admission?: No"
[2019-11-06] MEDS ORDERED: IBUPROFEN 400 MG TABLET (FP) PO PRN (13:30)
[2019-11-06] MEDS ORDERED: MAGNESIUM CITRATE 300 ML BOTTLE PO PRN (13:30)
[2019-11-06] MEDS ORDERED: MENTHOL/PHENOL 1 EACH UD MM PRN (13:30)
[2019-11-06] MEDS ORDERED: MAGNESIUM HYDROX 2400MG/30ML ORAL SUSPENSION 30 ML CUP PO PRN (13:30)
[2019-11-06] MEDS ORDERED: PROCHLORPERAZINE MALEATE 5 MG TABLET PO PRN (13:30)
[2019-11-06] MEDS ORDERED: METHOCARBAMOL 500 MG TABLET PO PRN (13:30)
[2019-11-06] MEDS ORDERED: P-EPHED 60MG/TRIPROLIDI 2.5MG TABLET PO PRN (13:30)
[2019-11-06] MEDS ORDERED: ACETAMINOPHEN 325 MG TABLET (FP) PO PRN ×2 (13:30)
[2019-11-06] MEDS ORDERED: MAG HYDROX/AL HYDROX/SIMETH 30 ML UNIT-DOSE CUP PO PRN (13:30)
[2019-11-06] MEDS ORDERED: BISMUTH SUBSALICYLATE 524 MG/30 ML UD PO PRN (13:30)
[2019-11-06] MEDS ORDERED: hydrOXYzine PAMOATE 25 MG CAPSULE (FP) PO PRN (13:30)
[2019-11-06] MEDS ORDERED: ALBUTEROL SO4 HFA INHALER IH PRN (13:35)
[2019-11-06] MEDS: cloNIDine HCL 0.1 MG TABLET PO PRN ×2 (15:21→22:43)
[2019-11-06] MEDS: diazePAM 5 MG TABLET PO PRN (18:31)
[2019-11-06] MEDS: THIAMINE HCL 100 MG TABLET (FP) PO SCH (22:42)
[2019-11-06] MEDS: MELATONIN 5 MG TABLETS PO PRN (22:43)
--- NOTE | 2019-11-07 09:28 | PN ---
S CIWA - CIWA Score Nausea/Vomitin-Mild Nausea/No Vomiting Muscle Tremors: 2 Anxiety: 3 Agitation: 1-Slight > Activity Paroxysmal Sweats: 2 Orientation: 0-Oriented Tacttile Disturbances: 0-None Auditory Disturbances: 0-None Visual Disturbances: 1-Very Mild Sensitivity Headache: 2-Mild CIWA-Ar Total Score: 12 BHS COWS - Scale Resting Pulse: 1= [place] 81-100 Sweatin= Chills/Flushing Restless Observation: 0= Sits Still Pupil Size: 1= Pupils >than Normal Bone or Joint Aches: 0= None Runny Nose/ Eye Tearin= None GI Upset > 30mins: 2= Nausea/Diarrhea Tremor Observation of Outstretched Hands: 2= Slight Tremor Visible Yawning Observation: 0= None Anxiety or Irritability: 2=Irritable/Anxious Goose Flesh Skin: 3=Piloerection COWS Score: 12 S Progress Note (SOAP) Subjective: 39 years old male admitted on 11/06/19 for alcohol and opiate withdrawal sx management treating with valium and clonidine prn regimens ciwa and cows scores meet detox regimens of valium and methadone begin valium and methadone detox regimen today Objective: 11/07/19 09:25 Vital Signs Temperature 97.1 F L 11/07/19 09:06 Pulse Rate 85 11/07/19 09:06 Respiratory Rate 18 11/07/19 09:06 Blood Pressure 141/97 11/07/19 09:06 O2 Sat by Pulse Oximetry (%) 11/07/19 09:25 lab pending 11/07/19 09:28 bp elevation patient will received inderal 40 mg today 11/07/19 09:29 Assessment: 11/07/19 09:29 alcohol and opiate withdrawal Plan: valium and methadone detox regimens
[2019-11-07] MEDS ORDERED: METHADONE HCL 10 MG TABLET (FOR DETOX USE ONLY) PO ONE (10:15)
[2019-11-07] MEDS: PRENATAL VITAMINS W/ FOLIC ACID TABLET (FP) PO SCH (10:22)
[2019-11-07] MEDS: diazePAM 5 MG TABLET PO PRN (10:22)
[2019-11-07 10:47] LABS: ALBUMIN 3.3 g/dl (3.4-5.0); BILIRUBIN,TOTAL 0.3 mg/dL (0.2-1); BLOOD UREA NITROGEN 10.5 mg/dL (7-18); CALCIUM 8.9 mg/dL (8.5-10.1); CREATININE 0.5 mg/dL (0.55-1.3); POTASSIUM 4.2 mmol/L (3.5-5.1); TOT PROT 6.2 g/dl (6.4-8.2)
[2019-11-07 10:49] LABS: HEMATOCRIT 39.4 % (35.4-49); HEMOGLOBIN 13.2 GM/dL (11.7-16.9); MCHC 33.3 g/dl (32.0-35.9); MEAN CELL VOLUME 90.1 fl (80-96); MEAN PLT VOLUME 9.7 fl (7.5-11.1); PLATELET COUNT 192 K/MM3 (134-434); RBC 4.38 M/mm3 (4.00-5.60); RDW 14.1 % (11.9-15.9); WHITE BLOOD COUNT 7.1 K/mm3 (4.0-10.0)
[2019-11-07] MEDS: diazePAM 5 MG TABLET PO SCH ×2 (13:50→22:19)
--- NOTE | 2019-11-07 14:02 | CONSULT ---
[facility] Psychiatric Consult - Data Date of interview: 11/07/19 Admission source: [facility] Identifying data: Patient is a 39 year old single male, without children, unemployed, domiciled, and is not supported with any financial assistance. This is one of multiple admissions for patient. Patient admitted to for alcohol and opiate dependence. Substance Abuse History: Smoking Cessation. Smoking history: Current every day smoker. Have you smoked in the past 12 months: Yes. Aproximately how many cigarettes per day: 20. Cigars Per Day: 0. Hx Chewing Tobacco Use: No. Initiated information on smoking cessation: Yes. 'Breaking Loose' booklet given : 11/06/19. - Substances abused. Alcohol. Substance route: Oral. Frequency: Daily. Amount used: 1/2 PINT OF VODKA. Age of first use: 14. Date of last use: 11/05/19. Heroin. Substance route: Inhalation. Frequency: Daily. Amount used: 12 BAGS. Age of first use: 23. Date of last use: 11/06/19 Medical History: Asthma, hypertension, Abdominal Surgery (age 3) Psychiatric History: Patient denies history of psychiatric hospitalizations, and suicide attempt. Mr. Penn reports history of outpatient psychiatric care in [place], [place] (unable to recall the name of the clinic or physician). Reports last seeing the psychiatrist one year ago and during that time he reports being prescribed trazodone 150mg and klonopin 1mg BID. Patient is now receiving refills of trazodone 150mg from his primary care physician. At present he reports feeling sad, anxious and is experiencing difficulty sleeping. Physical/Sexual Abuse/Trauma History: denies. Mental Status Exam - Mental Status Exam Alert and Oriented to: Time, Place, Person Cognitive Function: Good Patient Appearance: Well Groomed Mood: Sad Affect: Mood Congruent Patient Behavior: Cooperative Speech Pattern: Appropriate Voice Loudness: Normal Thought Process: Goal Oriented Thought Disorder: Not Present Hallucinations: Denies Suicidal Ideation: Denies Homicidal Ideation: Denies Insight/Judgement: Poor Sleep: Poorly Appetite: Fair Muscle strength/Tone: Normal Gait/Station: Normal Psychiatric Findings - Problem List ([place] 1, 2,3) (1) Nicotine dependence Current Visit: Yes Status: Chronic Qualifiers: Nicotine product type: cigarettes Substance use status: uncomplicated Qualified Code(s): F17.210 - Nicotine dependence, cigarettes, uncomplicated (2) Opioid dependence with withdrawal Current Visit: Yes Status: Acute (3) Substance induced mood disorder Current Visit: Yes Status: Acute (4) Substance-induced anxiety disorder Current Visit: Yes Status: Acute (5) Substance-induced sleep disorder Current Visit: Yes Status: Acute - Initial Treatment Plan Initial Treatment Plan: Psychoeducation provided. Detoxification in progress. Will order Trazodone 150mg HS + Vistaril 50mg q6h. Benefits and side effects discussed. Verbal consent given.
[2019-11-07] MEDS ORDERED: hydrOXYzine PAMOATE 25 MG CAPSULE (FP) PO PRN (14:06)
[2019-11-07] MEDS ORDERED: traZODone HCL 150 MG TABLET PO SCH (22:00)
[2019-11-07] MEDS: THIAMINE HCL 100 MG TABLET (FP) PO SCH (22:22)
[2019-11-08] MEDS: diazePAM 5 MG TABLET PO SCH ×3 (06:10→22:07)
[2019-11-08] MEDS ORDERED: METHADONE HCL 5 MG TABLET (FOR DETOX USE ONLY) PO ONE (10:00)
[2019-11-08] MEDS: PRENATAL VITAMINS W/ FOLIC ACID TABLET (FP) PO SCH (10:06)
[2019-11-08] MEDS: diazePAM 5 MG TABLET PO PRN (10:07)
--- NOTE | 2019-11-08 12:40 | PN ---
S CIWA - CIWA Score Nausea/Vomitin-No Nausea/No Vomiting Muscle Tremors: 2 Anxiety: 2 Agitation: 2 Paroxysmal Sweats: 1-Minimal Palms Moist Orientation: 0-Oriented Tacttile Disturbances: 0-None Auditory Disturbances: 0-None Visual Disturbances: 0-None Headache: 1-Very Mild CIWA-Ar Total Score: 8 BHS COWS - Scale Resting Pulse: 0= [place] 80 or Below Sweatin= Chills/Flushing Restless Observation: 0= Sits Still Pupil Size: 1= Pupils >than Normal Bone or Joint Aches: 1= Mild Discomfort Runny Nose/ Eye Tearin= Nasal Congestion GI Upset > 30mins: 1= Stomach Cramp Tremor Observation of Outstretched Hands: 2= Slight Tremor Visible Yawning Observation: 0= None Anxiety or Irritability: 1=Feels Anxious/Irritable Goose Flesh Skin: 0=Smooth Skin COWS Score: 8 BHS Progress Note (SOAP) Subjective: 39 years old male admitted on 11/06/19 for alcohol and opiate withdrawal sx management treating with valium and methadone detox regiemn feeling ok today ate breakfast and lunch in day room social with peers in day room discuss medication assisted treatment program picking up narcan from pharmacy Objective: 11/08/19 12:41 Vital Signs Temperature 98.0 F 11/08/19 09:11 Pulse Rate 74 11/08/19 09:11 Respiratory Rate 18 11/08/19 09:11 Blood Pressure 146/96 11/08/19 09:11 O2 Sat by Pulse Oximetry (%) Laboratory Last Values WBC 7.1 K/mm3 (4.0-10.0) 11/07/19 07:20 RBC 4.38 M/mm3 (4.00-5.60) 11/07/19 07:20 Hgb 13.2 GM/dL (11.7-16.9) 11/07/19 07:20 Hct 39.4 % (35.4-49) 11/07/19 07:20 MCV 90.1 fl (80-96) 11/07/19 07:20 MCH 30.0 pg (25.7-33.7) 11/07/19 07:20 MCHC 33.3 g/dl (32.0-35.9) 11/07/19 07:20 RDW 14.1 % (11.9-15.9) 11/07/19 07:20 Plt Count 192 K/MM3 (134-434) 11/07/19 07:20 MPV 9.7 fl (7.5-11.1) 11/07/19 07:20 Sodium 143 mmol/L (136-145) 11/07/19 07:20 Potassium 4.2 mmol/L (3.5-5.1) 11/07/19 07:20 Chloride 108 mmol/L (98-107) H 11/07/19 07:20 Carbon Dioxide 30 mmol/L (21-32) 11/07/19 07:20 Anion Gap 4 MMOL/L (8-16) L 11/07/19 07:20 BUN 10.5 mg/dL (7-18) 11/07/19 07:20 Creatinine 0.5 mg/dL (0.55-1.3) L 11/07/19 07:20 Est GFR (CKD-EPI)AfAm 157.10 11/07/19 07:20 Est GFR (CKD-EPI)NonAf 135.55 11/07/19 07:20 Random Glucose 84 mg/dL (74-106) 11/07/19 07:20 Calcium 8.9 mg/dL (8.5-10.1) 11/07/19 07:20 Total Bilirubin 0.3 mg/dL (0.2-1) 11/07/19 07:20 AST 25 U/L (15-37) 11/07/19 07:20 ALT 33 U/L (13-61) 11/07/19 07:20 Alkaline Phosphatase 84 U/L (45-117) 11/07/19 07:20 Total Protein 6.2 g/dl (6.4-8.2) L 11/07/19 07:20 Albumin 3.3 g/dl (3.4-5.0) L 11/07/19 07:20 RPR Titer Nonreactive (NONREACTIVE) 11/07/19 07:20 lab noted Assessment: 11/08/19 12:42 alcohol and opiate withdrawal Plan: valium and methadone regimens
[2019-11-08] MEDS: THIAMINE HCL 100 MG TABLET (FP) PO SCH (22:07)
[2019-11-08] MEDS: traZODone HCL 50 MG TABLET (FP) PO SCH (22:07)
[2019-11-08] MEDS: MELATONIN 5 MG TABLETS PO PRN (22:08)
[2019-11-09] MEDS: diazePAM 5 MG TABLET PO SCH ×2 (06:45→17:35)
--- NOTE | 2019-11-09 09:49 | PN ---
S CIWA - CIWA Score Nausea/Vomitin-No Nausea/No Vomiting Muscle Tremors: 2 Anxiety: 1-Mildly Anxious Agitation: 0-Normal Activity Paroxysmal Sweats: 1-Minimal Palms Moist Orientation: 0-Oriented Tacttile Disturbances: 0-None Auditory Disturbances: 0-None Visual Disturbances: 0-None Headache: 0-None Present CIWA-Ar Total Score: 4 BHS COWS - Scale Resting Pulse: 0= [place] 80 or Below Sweatin= Chills/Flushing Restless Observation: 0= Sits Still Pupil Size: 0= Normal to Room Light Bone or Joint Aches: 1= Mild Discomfort Runny Nose/ Eye Tearin= None GI Upset > 30mins: 0= None Tremor Observation of Outstretched Hands: 1= Tremor [place], Not Seen Yawning Observation: 0= None Anxiety or Irritability: 1=Feels Anxious/Irritable Goose Flesh Skin: 0=Smooth Skin COWS Score: 4 S Progress Note (SOAP) Subjective: 39 years old male admitted on 11/06/19 for alcohol and opiate withdrawal sx management treating with valium and methadone detox regiments feeling better today ate breakfast in day room social with peers discussed aftercare with staff Objective: 11/09/19 09:52 Vital Signs Temperature 97.5 F L 11/09/19 09:18 Pulse Rate 77 11/09/19 09:18 Respiratory Rate 16 11/09/19 09:18 Blood Pressure 133/81 11/09/19 09:18 O2 Sat by Pulse Oximetry (%) Laboratory Last Values WBC 7.1 K/mm3 (4.0-10.0) 11/07/19 07:20 RBC 4.38 M/mm3 (4.00-5.60) 11/07/19 07:20 Hgb 13.2 GM/dL (11.7-16.9) 11/07/19 07:20 Hct 39.4 % (35.4-49) 11/07/19 07:20 MCV 90.1 fl (80-96) 11/07/19 07:20 MCH 30.0 pg (25.7-33.7) 11/07/19 07:20 MCHC 33.3 g/dl (32.0-35.9) 11/07/19 07:20 RDW 14.1 % (11.9-15.9) 11/07/19 07:20 Plt Count 192 K/MM3 (134-434) 11/07/19 07:20 MPV 9.7 fl (7.5-11.1) 11/07/19 07:20 Sodium 143 mmol/L (136-145) 11/07/19 07:20 Potassium 4.2 mmol/L (3.5-5.1) 11/07/19 07:20 Chloride 108 mmol/L (98-107) H 11/07/19 07:20 Carbon Dioxide 30 mmol/L (21-32) 11/07/19 07:20 Anion Gap 4 MMOL/L (8-16) L 11/07/19 07:20 BUN 10.5 mg/dL (7-18) 11/07/19 07:20 Creatinine 0.5 mg/dL (0.55-1.3) L 11/07/19 07:20 Est GFR (CKD-EPI)AfAm 157.10 11/07/19 07:20 Est GFR (CKD-EPI)NonAf 135.55 11/07/19 07:20 Random Glucose 84 mg/dL (74-106) 11/07/19 07:20 Calcium 8.9 mg/dL (8.5-10.1) 11/07/19 07:20 Total Bilirubin 0.3 mg/dL (0.2-1) 11/07/19 07:20 AST 25 U/L (15-37) 11/07/19 07:20 ALT 33 U/L (13-61) 11/07/19 07:20 Alkaline Phosphatase 84 U/L (45-117) 11/07/19 07:20 Total Protein 6.2 g/dl (6.4-8.2) L 11/07/19 07:20 Albumin 3.3 g/dl (3.4-5.0) L 11/07/19 07:20 RPR Titer Nonreactive (NONREACTIVE) 11/07/19 07:20 lab noted Assessment: 11/09/19 09:52 alcohol and opiate withdrawal Plan: valium and methadone regiments
[2019-11-09] MEDS ORDERED: METHADONE HCL 10 MG TABLET (FOR DETOX USE ONLY) PO ONE (10:00)
[2019-11-09] MEDS: PRENATAL VITAMINS W/ FOLIC ACID TABLET (FP) PO SCH (10:08)
[2019-11-09] MEDS: THIAMINE HCL 100 MG TABLET (FP) PO SCH (22:18)
[2019-11-09] MEDS: traZODone HCL 50 MG TABLET (FP) PO SCH (22:18)
[2019-11-09] MEDS: MELATONIN 5 MG TABLETS PO PRN (22:19)
[2019-11-10] MEDS ORDERED: diazePAM 5 MG TABLET PO ONE (06:00)
[2019-11-10] MEDS ORDERED: METHADONE HCL 5 MG TABLET (FOR DETOX USE ONLY) PO ONE (06:00)
[2019-11-10] MEDS: PRENATAL VITAMINS W/ FOLIC ACID TABLET (FP) PO SCH (10:00)
--- NOTE | 2019-11-10 10:04 | PN ---
[facility] CIWA - CIWA Score Nausea/Vomitin-No Nausea/No Vomiting Muscle Tremors: None Anxiety: 0-No Anxiety, at Ease Agitation: 0-Normal Activity Paroxysmal Sweats: No Perspiration Orientation: 0-Oriented Tacttile Disturbances: 0-None Auditory Disturbances: 0-None Visual Disturbances: 0-None Headache: 3-Moderate CIWA-Ar Total Score: 3 S COWS - Scale Resting Pulse: 0= [place] 80 or Below Sweatin= No chills or Flushing Restless Observation: 0= Sits Still Pupil Size: 0= Normal to Room Light Bone or Joint Aches: 0= None Runny Nose/ Eye Tearin= Runny Nose/Eyes GI Upset > 30mins: 0= None Tremor Observation of Outstretched Hands: 0= None Yawning Observation: 0= None Anxiety or Irritability: 0= None Goose Flesh Skin: 0=Smooth Skin COWS Score: 2 S Progress Note (SOAP) Subjective: 39 years old male admitted on 11/06/19 for alcohol and opiate withdrawal sx management treating with valium and methadone detox regiments feeling ok today but headaches and running nose with bp elevation patient will receive propranolol 40mg and add 10mg around 2 pm Objective: 11/10/19 10:11 Vital Signs Temperature 98.2 F 11/10/19 09:10 Pulse Rate 84 11/10/19 09:10 Respiratory Rate 18 11/10/19 09:10 Blood Pressure 141/92 11/10/19 09:10 O2 Sat by Pulse Oximetry (%) Laboratory Last Values WBC 7.1 K/mm3 (4.0-10.0) 11/07/19 07:20 RBC 4.38 M/mm3 (4.00-5.60) 11/07/19 07:20 Hgb 13.2 GM/dL (11.7-16.9) 11/07/19 07:20 Hct 39.4 % (35.4-49) 11/07/19 07:20 MCV 90.1 fl (80-96) 11/07/19 07:20 MCH 30.0 pg (25.7-33.7) 11/07/19 07:20 MCHC 33.3 g/dl (32.0-35.9) 11/07/19 07:20 RDW 14.1 % (11.9-15.9) 11/07/19 07:20 Plt Count 192 K/MM3 (134-434) 11/07/19 07:20 MPV 9.7 fl (7.5-11.1) 11/07/19 07:20 Sodium 143 mmol/L (136-145) 11/07/19 07:20 Potassium 4.2 mmol/L (3.5-5.1) 11/07/19 07:20 Chloride 108 mmol/L (98-107) H 11/07/19 07:20 Carbon Dioxide 30 mmol/L (21-32) 11/07/19 07:20 Anion Gap 4 MMOL/L (8-16) L 11/07/19 07:20 BUN 10.5 mg/dL (7-18) 11/07/19 07:20 Creatinine 0.5 mg/dL (0.55-1.3) L 11/07/19 07:20 Est GFR (CKD-EPI)AfAm 157.10 11/07/19 07:20 Est GFR (CKD-EPI)NonAf 135.55 11/07/19 07:20 Random Glucose 84 mg/dL (74-106) 11/07/19 07:20 Calcium 8.9 mg/dL (8.5-10.1) 11/07/19 07:20 Total Bilirubin 0.3 mg/dL (0.2-1) 11/07/19 07:20 AST 25 U/L (15-37) 11/07/19 07:20 ALT 33 U/L (13-61) 11/07/19 07:20 Alkaline Phosphatase 84 U/L (45-117) 11/07/19 07:20 Total Protein 6.2 g/dl (6.4-8.2) L 11/07/19 07:20 Albumin 3.3 g/dl (3.4-5.0) L 11/07/19 07:20 RPR Titer Nonreactive (NONREACTIVE) 11/07/19 07:20 lab noted Assessment: 11/10/19 10:12 alcohol and opiate withdrawal Plan: valium and methadone regimen
[2019-11-10] MEDS: MELATONIN 5 MG TABLETS PO PRN (22:18)
[2019-11-10] MEDS: THIAMINE HCL 100 MG TABLET (FP) PO SCH (22:18)
[2019-11-10] MEDS: traZODone HCL 50 MG TABLET (FP) PO SCH (22:18)
[2019-11-11 09:14] VITALS: BP 131/90; PULSE 84; TEMP 97
[2019-11-11] MEDS: PRENATAL VITAMINS W/ FOLIC ACID TABLET (FP) PO SCH (10:08)
--- NOTE | 2019-11-11 10:19 | DS ---
[facility] Detox Discharge Summary Admission Date: 11/06/19 Discharge Date: 11/11/19 - History Present History: Alcohol Dependence, Opioid Dependence Additional Comments: 39 years old male admitted on 11/06/19 for alcohol and opiate withdrawal sx management treated with valium and methadone detox regiments patient has completed the valium and methadone regiments and tolerated well alert oriented x 3 seen by psychiatrist resume trazadone and vistaril prn respiratory clear lungs bilaterally on auscultation abdomen soft no rebound tenderness skin warm and dry - Physical Exam Results Vital Signs: Vital Signs Temperature 97.0 F L 11/11/19 09:14 Pulse Rate 84 11/11/19 09:14 Respiratory Rate 18 11/11/19 09:14 Blood Pressure 131/90 11/11/19 09:14 O2 Sat by Pulse Oximetry (%) Pertinent Admission Physical Exam Findings: alcohol and opiate withdrawal Laboratory Last Values WBC 7.1 K/mm3 (4.0-10.0) 11/07/19 07:20 RBC 4.38 M/mm3 (4.00-5.60) 11/07/19 07:20 Hgb 13.2 GM/dL (11.7-16.9) 11/07/19 07:20 Hct 39.4 % (35.4-49) 11/07/19 07:20 MCV 90.1 fl (80-96) 11/07/19 07:20 MCH 30.0 pg (25.7-33.7) 11/07/19 07:20 MCHC 33.3 g/dl (32.0-35.9) 11/07/19 07:20 RDW 14.1 % (11.9-15.9) 11/07/19 07:20 Plt Count 192 K/MM3 (134-434) 11/07/19 07:20 MPV 9.7 fl (7.5-11.1) 11/07/19 07:20 Sodium 143 mmol/L (136-145) 11/07/19 07:20 Potassium 4.2 mmol/L (3.5-5.1) 11/07/19 07:20 Chloride 108 mmol/L (98-107) H 11/07/19 07:20 Carbon Dioxide 30 mmol/L (21-32) 11/07/19 07:20 Anion Gap 4 MMOL/L (8-16) L 11/07/19 07:20 BUN 10.5 mg/dL (7-18) 11/07/19 07:20 Creatinine 0.5 mg/dL (0.55-1.3) L 11/07/19 07:20 Est GFR (CKD-EPI)AfAm 157.10 11/07/19 07:20 Est GFR (CKD-EPI)NonAf 135.55 11/07/19 07:20 Random Glucose 84 mg/dL (74-106) 11/07/19 07:20 Calcium 8.9 mg/dL (8.5-10.1) 11/07/19 07:20 Total Bilirubin 0.3 mg/dL (0.2-1) 11/07/19 07:20 AST 25 U/L (15-37) 11/07/19 07:20 ALT 33 U/L (13-61) 11/07/19 07:20 Alkaline Phosphatase 84 U/L (45-117) 11/07/19 07:20 Total Protein 6.2 g/dl (6.4-8.2) L 11/07/19 07:20 Albumin 3.3 g/dl (3.4-5.0) L 11/07/19 07:20 RPR Titer Nonreactive (NONREACTIVE) 11/07/19 07:20 lab noted - Treatment Hospital Course: Detox Protocol Followed, Detoxed Safely, Responded well, Discharged Condition Good, Rehab Referral Accepted Patient has Accepted a Rehab Referral to: [facility] - Medication Discharge Medications: Ambulatory Orders Albuterol Sulfate Inhaler - [Ventolin HFA Inhaler -] 2 inh PO Q4H PRN #1 inhaler 08/27/18 Amlodipine Besylate [Norvasc -] 10 mg PO DAILY #30 tablet 08/27/18 Clonidine HCl 0.2 mg PO BID 04/30/19 Propranolol HCl 40 mg PO DAILY 04/30/19 traZODone HCL [Desyrel -] 150 mg PO HS 04/30/19 Naloxone HCl [Narcan] 4 mg NS ASDIR PRN #1 spray 09/09/19 - Diagnosis (1) Opioid dependence with withdrawal Current Visit: Yes Status: Acute (2) Substance induced mood disorder Current Visit: Yes Status: Suspected (3) Nicotine dependence Current Visit: Yes Status: Acute Qualifiers: Nicotine product type: cigarettes Substance use status: in withdrawal Qualified Code(s): F17.213 - Nicotine dependence, cigarettes, with withdrawal (4) Alcohol dependence with withdrawal Current Visit: Yes Status: Acute Qualifiers: Complication of substance-induced condition: uncomplicated Qualified Code(s ): F10.230 - Alcohol dependence with withdrawal, uncomplicated (5) Asthma Current Visit: Yes Status: Chronic Qualifiers: Asthma severity: mild Asthma persistence: intermittent Asthma complication type: uncomplicated Qualified Code(s): J45.20 - Mild intermittent asthma, uncomplicated (6) Hypertension Current Visit: Yes Status: Chronic Qualifiers: Hypertension type: essential hypertension Qualified Code(s): I10 - Essential (primary) hypertension (7) Substance induced mood disorder Current Visit: Yes Status: Suspected - AMA Did Patient Leave Against Medical Advice: No CIWA Score - CIWA Score Nausea/Vomitin-No Nausea/No Vomiting Muscle Tremors: None Anxiety: 0-No Anxiety, at Ease Agitation: 0-Normal Activity Paroxysmal Sweats: No Perspiration Orientation: 0-Oriented Tacttile Disturbances: 0-None Auditory Disturbances: 0-None Visual Disturbances: 0-None Headache: 1-Very Mild CIWA-Ar Total Score: 1 COWS (PN) - Opiate Withdrawal Resting Pulse: 1= [place] 81-100 Sweatin= No chills or Flushing Restless Observation: 0= Sits Still Pupil Size: 0= Normal to Room Light Bone or Joint Aches: 0= None Runny Nose/ Eye Tearin= None GI Upset > 30mins: 0= None Tremor Observation of Outstretched Hands: 0= None Yawning Observation: 0= None Anxiety or Irritability: 0= None Goose Flesh Skin: 0=Smooth Skin COWS Score: 1
--- NOTE | 2019-12-08 14:01 | HP ---
COWS - Scale Resting Pulse: 1= [place] 81-100 Sweatin= Chills/Flushing Restless Observation: 0= Sits Still Pupil Size: 0= Normal to Room Light Bone or Joint Aches: 0= None Runny Nose/ Eye Tearin= None GI Upset > 30mins: 1= Stomach Cramp Tremor Observation: 1= Tremor [place], Not Seen Yawning Observation: 0= None Anxiety or Irritability: 1=Feels Anxious/Irritable Goose Flesh Skin: 0=Smooth Skin COWS Score: 5 CIWA Score Nausea/Vomitin-No Nausea/No Vomiting Muscle Tremors: None Anxiety: 0-No Anxiety, at Ease Agitation: 0-Normal Activity Paroxysmal Sweats: No Perspiration Orientation: 0-Oriented Tacttile Disturbances: 0-None Auditory Disturbances: 0-None Visual Disturbances: 0-None Headache: 1-Very Mild CIWA-Ar Total Score: 1 - Admission Criteria OASAS Guidelines: Admission for Medically Managed Detox: Requires at least one of the followin. CIWA greater than 12 2. Seizures within the past 24 hours 3. Delirium tremens within the past 24 hours 4. Hallucinations within the past 24 hours 5. Acute intervention needed for co occurring medical disorder 6. Acute intervention needed for co occurring psychiatric disorder 7. Severe withdrawal that cannot be handled at a lower level of care (continued vomiting, continued diarrhea, abnormal vital signs) requiring intravenous medication and/or fluids 8. Admitting History and Physical - Admission Chief Complaint: Mr. Penn is a 39yo gentleman who presents to [facility] requesting detox admission for alcohol and heroin use disorder. History of Present Illness: Mr. Penn is a 39yo gentleman who presents to [facility] requesting detox admission for alcohol and heroin use disorder. He was last here between November 06 and of this year. 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 Began use at the age of 23 y, last use today Alcohol: 1/2 pint Vodka daily, first use age 16y, last use yesterday, no black outs or seizures. When abstinent gets shakes, GI upset and sweats. Klonopin: street, takes 6 tabs of 2 mg each, first use at the age of 31y, last use today Nicotine: 1 ppd, first smoked at the age of 15y, last cigarette: today Denies: marijuana - Smoking History Smoking history: Current every day smoker Have you smoked in the past 12 months: Yes Aproximately how many cigarettes per day: 20 - Alcohol/Substance Use Hx Alcohol Use: Yes Admission [facility] Allergies/Adverse Reactions: Allergies Allergy/AdvReac Type Severity Reaction Status Date / Time No Known Allergies Allergy Verified 11/06/19 11:25 Exam Limitations: No Limitations - Ebola screening Have you traveled outside of the country in the last 21 days: No (N) Have you had contact with anyone from an Ebola affected area: No Do you have a fever: No - Review of Systems Constitutional: Loss of Appetite EENT: reports: Blurred Vision (glasses) Respiratory: reports: No Symptoms reported Cardiac: reports: No Symptoms Reported GI: reports: Nausea : reports: No Symptoms Reported Musculoskeletal: reports: No Symptoms Reported Integumentary: reports: No Symptoms Reported Neuro: reports: No Symptoms reported Endocrine: reports: No Symptoms Reported Hematology: reports: No Symptoms Reported Psychiatric: reports: Anxious Patient History - Patient Medical History Hx Anemia: No Hx Asthma: Yes Hx Chronic Obstructive Pulmonary Disease (COPD): No Hx Cancer: No Hx Cardiac Disorders: No Hx Congestive Heart Failure: No Hx Hypertension: Yes Hx Hypercholesterolemia: No Hx Pacemaker: No HX Cerebrovascular Accident: No Hx Seizures: No Hx Dementia: No Hx Diabetes: No Hx Gastrointestinal Disorders: No Hx Liver Disease: No Hx Genitourinary Disorders: No Hx Sexually Transmitted Disorders: No Hx Renal Disease (ESRD): No Hx Thyroid Disease: No Hx Human Immunodeficiency Virus (HIV): No Hx Hepatitis C: No Hx Depression: Yes Hx Suicide Attempt: No Hx Bipolar Disorder: No Hx Schizophrenia: No - Patient Surgical History Past Surgical History: Yes Hx Neurologic Surgery: No Hx Cataract Extraction: No Hx Cardiac Surgery: No Hx Lung Surgery: No Hx Breast Surgery: No Hx Breast Biopsy: No Hx Abdominal Surgery: Yes (at age 3, esophagael atresia) Hx Appendectomy: No Hx Cholecystectomy: No Hx Genitourinary Surgery: No Hx Section: No Hx Orthopedic Surgery: No Anesthesia Reaction: No - PPD History Previous Implant?: Yes Documented Results: Negative w/proof Date: 09/10/19 Results: 0 mm - Smoking Cessation Smoking history: Current every day smoker Have you smoked in the past 12 months: Yes Aproximately how many cigarettes per day: 20 Cigars Per Day: 0 Hx Chewing Tobacco Use: No Initiated information on smoking cessation: Yes 'Breaking Loose' booklet given: 12/08/19 - Substances abused Alcohol Substance route: Oral Frequency: Daily Amount used: 1/2 PINT OF VODKA Age of first use: 14 Date of last use: 11/05/19 Heroin Substance route: Inhalation Frequency: Daily Amount used: 12 BAGS Age of first use: 23 Date of last use: 11/06/19 Benzodiazepine (Klonopin) Substance route: Oral Frequency: 3-6 times per week Amount used: 6 tabs 2 mg each Age of first use: 31 Date of last use: 12/08/19 Admission Physical Exam [facility] - Physical General Appearance: Yes: Thin, Anxious HEENTM: Yes: Hearing grossly Normal, Normocephalic Respiratory: Yes: Lungs Clear, Normal Breath Sounds Neck: Yes: Within Normal Limits Breast: Yes: Breast Exam Deferred Cardiology: Yes: S1, S2, Tachycardia Abdominal: Yes: Normal Bowel Sounds, Non Tender, Flat, Soft Genitourinary: Yes: Other (deferred) Back: Yes: Normal Inspection Musculoskeletal: Yes: Within Normal Limits Extremities: Yes: Within Normal Limits Neurological: Yes: Alert Integumentary: Yes: Within Normal Limits - Diagnostic (1) Alcohol dependence with withdrawal Status: Acute Qualifiers: Complication of substance-induced condition: uncomplicated Qualified Code(s ): F10.230 - Alcohol dependence with withdrawal, uncomplicated (2) Benzodiazepine withdrawal without complication Status: Acute (3) Nicotine dependence Status: Chronic Qualifiers: Nicotine product type: cigarettes Substance use status: in withdrawal Qualified Code(s): F17.213 - Nicotine dependence, cigarettes, with withdrawal (4) Opioid dependence with withdrawal Status: Acute (5) Hypertension Status: Chronic Qualifiers: Hypertension type: essential hypertension Qualified Code(s): I10 - Essential (primary) hypertension Cleared for Admission S - Detox or Rehab [facility] Level of Care: Medically Managed Breathalyzer - Breathalyzer Breathalyzer: 0 Urine Drug Screen - Test Device Lot number: [id number] Expiration date: 05/19/21 - Control Is test valid?: Yes - Results Drug screen NEGATIVE: No Urine drug screen results: MOP-Opiates, BZO-Benzodiazepines Inpatient Rehab Admission - Rehab Decision to Admit Inpatient rehab admission?: No
[2019-12-08] MEDS ORDERED: IBUPROFEN 400 MG TABLET (FP) PO PRN (14:06)
[2019-12-08] MEDS ORDERED: MELATONIN 5 MG TABLETS PO PRN (14:06)
[2019-12-08] MEDS ORDERED: hydrOXYzine PAMOATE 25 MG CAPSULE (FP) PO PRN (14:06)
[2019-12-08] MEDS ORDERED: ACETAMINOPHEN 325 MG TABLET (FP) PO PRN ×2 (14:06)
[2019-12-08] MEDS ORDERED: MENTHOL/PHENOL 1 EACH UD MM PRN (14:06)
[2019-12-08] MEDS ORDERED: MAG HYDROX/AL HYDROX/SIMETH 30 ML UNIT-DOSE CUP PO PRN (14:06)
[2019-12-08] MEDS ORDERED: BISMUTH SUBSALICYLATE 524 MG/30 ML UD PO PRN (14:06)
[2019-12-08] MEDS ORDERED: MAGNESIUM HYDROX 2400MG/30ML ORAL SUSPENSION 30 ML CUP PO PRN (14:06)
[2019-12-08] MEDS ORDERED: chlordiazePOXIDE HCL 25 MG CAPSULE PO PRN (14:06)
[2019-12-08] MEDS ORDERED: cloNIDine HCL 0.1 MG TABLET PO PRN (14:06)
[2019-12-08] MEDS ORDERED: METHADONE HCL 10 MG TABLET (FOR DETOX USE ONLY) PO ONE (14:06)
[2019-12-08] MEDS ORDERED: MAGNESIUM CITRATE 300 ML BOTTLE PO PRN (14:06)
[2019-12-08] MEDS ORDERED: METHOCARBAMOL 500 MG TABLET PO PRN (14:06)
[2019-12-08] MEDS ORDERED: NICOTINE 21 MG/24 HOURS TOPICAL PATCH TD SCH (14:15)
[2019-12-08] MEDS ORDERED: chlordiazePOXIDE HCL 25 MG CAPSULE PO SCH (17:00)
[2019-12-08 17:20] LABS: HEMATOCRIT 38.2 % (35.4-49); MCH 30.8 pg (25.7-33.7); MCHC 34.1 g/dl (32.0-35.9); MEAN CELL VOLUME 90.4 fl (80-96); MEAN PLT VOLUME 9.2 fl (7.5-11.1); PLATELET COUNT 232 K/MM3 (134-434); RBC 4.22 M/mm3 (4.00-5.60); RDW 14.4 % (11.9-15.9); WHITE BLOOD COUNT 12.9 K/mm3 (4.0-10.0)
[2019-12-08 17:25] LABS: ALBUMIN 3.7 g/dl (3.4-5.0); BILIRUBIN,TOTAL 0.2 mg/dL (0.2-1); BLOOD UREA NITROGEN 13.2 mg/dL (7-18); CALCIUM 8.9 mg/dL (8.5-10.1); CREATININE 0.7 mg/dL (0.55-1.3); POTASSIUM 3.8 mmol/L (3.5-5.1); TOT PROT 6.8 g/dl (6.4-8.2)
[2019-12-08] MEDS ORDERED: THIAMINE HCL 100 MG TABLET (FP) PO SCH (22:00)
[2019-12-09] MEDS ORDERED: PRENATAL VITAMINS W/ FOLIC ACID TABLET (FP) PO SCH (10:00)
[2019-12-10] MEDS ORDERED: chlordiazePOXIDE HCL 25 MG CAPSULE PO SCH (05:00)
[2019-12-11] MEDS ORDERED: chlordiazePOXIDE HCL 10 MG CAPSULE PO SCH (05:00)
[2019-12-12] MEDS ORDERED: chlordiazePOXIDE HCL 10 MG CAPSULE PO SCH (05:00)
== END 2019-11-11 13:22 | disposition home or self-care (01) | DRG 897 ==
LOC: YASAS 10:52 → Y3N 13:39
PROVIDERS: ADMIT Allergy & Immunology; ATTEND Allergy & Immunology
PROC: HZ2ZZZZ Detoxification Services for Substance Abuse Treatment (ICD-10-PCS; principal; 2019-11-06)
DX: F10.230 Alcohol dependence with withdrawal, uncomplicated (principal); F19.282 Other psychoactive substance dependence with psychoactive substance-induced sleep disorder; F19.280 Other psychoactive substance dependence with psychoactive substance-induced anxiety disorder; F11.23 Opioid dependence with withdrawal; F17.210 Nicotine dependence, cigarettes, uncomplicated; F19.24 Other psychoactive substance dependence with psychoactive substance-induced mood disorder; I10 Essential (primary) hypertension; J45.20 Mild intermittent asthma, uncomplicated
CPT/HCPCS: 36415; 80053; 85027; 86593; J0735

== ENCOUNTER 2019-12-08 12:39 | Inpatient (IN) | payer OTHER ==
--- NOTE | 2019-12-08 12:59 | BHS.RME ---
Substance Use & Tx History - Substance Use History Alcohol Substance amount: 1/2 pint vodka Frequency of use: Daily Substance route: Oral Date of Last Use: 12/07/19 Opiates (Heroin) Substance amount: 16 bags Frequency of use: Daily Substance route: Inhalation (ex: sniffing or snorting) Date of Last Use: 12/08/19 COWS - Scale Resting Pulse: 1= [place] 81-100 Sweatin= No chills or Flushing Restless Observation: 0= Sits Still Pupil Size: 0= Normal to Room Light Bone or Joint Aches: 0= None Runny Nose/ Eye Tearin= None GI Upset > 30mins: 1= Stomach Cramp Tremor Observation: 1= Tremor [place], Not Seen Yawning Observation: 0= None Anxiety or Irritability: 4=Extreme Anxiety Goose Flesh Skin: 0=Smooth Skin (not yet in withdrawals since he used this am) COWS Score: 7 CIWA Nausea/Vomitin-Mild Nausea/No Vomiting Muscle Tremors: 2 Anxiety: 5 Agitation: 0-Normal Activity Paroxysmal Sweats: No Perspiration Orientation: 0-Oriented Tacttile Disturbances: 0-None Auditory Disturbances: 0-None Visual Disturbances: 0-None Headache: 0-None Present (drank yesterday but used opiates today so may be mitigating his withdrawal symptoms because of opiate use.) CIWA-Ar Total Score: 8
[2019-12-08 14:30] VITALS: BMI 25.9
--- NOTE | 2019-12-08 15:33 | HP ---
COWS - Scale Resting Pulse: 1= [place] 81-100 Sweatin= No chills or Flushing Restless Observation: 0= Sits Still Pupil Size: 0= Normal to Room Light Bone or Joint Aches: 0= None Runny Nose/ Eye Tearin= None GI Upset > 30mins: 1= Stomach Cramp Tremor Observation: 1= Tremor [place], Not Seen Yawning Observation: 0= None Anxiety or Irritability: 4=Extreme Anxiety Goose Flesh Skin: 0=Smooth Skin (not yet in withdrawals since he used this am) COWS Score: 7 CIWA Score Nausea/Vomitin-Mild Nausea/No Vomiting Muscle Tremors: 2 Anxiety: 5 Agitation: 0-Normal Activity Paroxysmal Sweats: No Perspiration Orientation: 0-Oriented Tacttile Disturbances: 0-None Auditory Disturbances: 0-None Visual Disturbances: 0-None Headache: 0-None Present (drank yesterday but used opiates today so may be mitigating his withdrawal symptoms because of opiate use.) CIWA-Ar Total Score: 8 - Admission Criteria OASAS Guidelines: Admission for Medically Managed Detox: Requires at least one of the followin. CIWA greater than 12 2. Seizures within the past 24 hours 3. Delirium tremens within the past 24 hours 4. Hallucinations within the past 24 hours 5. Acute intervention needed for co occurring medical disorder 6. Acute intervention needed for co occurring psychiatric disorder 7. Severe withdrawal that cannot be handled at a lower level of care (continued vomiting, continued diarrhea, abnormal vital signs) requiring intravenous medication and/or fluids 8. Admitting History and Physical - Admission Chief Complaint: Mr. Penn is a 39 yo man who presents for detox admission with a history of heroin and alcohol use disorder. History of Present Illness: COWS - Scale Resting Pulse: 1= [place] 81-100 Sweatin= Chills/Flushing Restless Observation: 0= Sits Still Pupil Size: 0= Normal to Room Light Bone or Joint Aches: 0= None Runny Nose/ Eye Tearin= None GI Upset > 30mins: 1= Stomach Cramp Tremor Observation: 1= Tremor [place], Not Seen Yawning Observation: 0= None Anxiety or Irritability: 1=Feels Anxious/Irritable Goose Flesh Skin: 0=Smooth Skin COWS Score: 5 CIWA Score Nausea/Vomitin-No Nausea/No Vomiting Muscle Tremors: None Anxiety: 0-No Anxiety, at Ease Agitation: 0-Normal Activity Paroxysmal Sweats: No Perspiration Orientation: 0-Oriented Tacttile Disturbances: 0-None Auditory Disturbances: 0-None Visual Disturbances: 0-None Headache: 1-Very Mild CIWA-Ar Total Score: 1 - Admission Criteria OASAS Guidelines: Admission for Medically Managed Detox: Requires at least one of the followin. CIWA greater than 12 2. Seizures within the past 24 hours 3. Delirium tremens within the past 24 hours 4. Hallucinations within the past 24 hours 5. Acute intervention needed for co occurring medical disorder 6. Acute intervention needed for co occurring psychiatric disorder 7. Severe withdrawal that cannot be handled at a lower level of care (continued vomiting, continued diarrhea, abnormal vital signs) requiring intravenous medication and/or fluids 8. Admitting History and Physical - Admission Chief Complaint: Mr. Penn is a 39yo gentleman who presents to [facility] requesting detox admission for alcohol and heroin use disorder. History of Present Illness: Mr. Penn is a 39yo gentleman who presents to [facility] requesting detox admission for alcohol and heroin use disorder. He was last here between November 06 and of this year. 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 Began use at the age of 23 y, last use today Alcohol: 1/2 pint Vodka daily, first use age 16y, last use yesterday, no black outs or seizures. When abstinent gets shakes, GI upset and sweats. Klonopin: street, takes 6 tabs of 2 mg each, first use at the age of 31y, last use today Nicotine: 1 ppd, first smoked at the age of 15y, last cigarette: today Denies: marijuana - Smoking History Smoking history: Current every day smoker Have you smoked in the past 12 months: Yes Aproximately how many cigarettes per day: 20 - Alcohol/Substance Use Hx Alcohol Use: Yes Admission [facility] Allergies/Adverse Reactions: Allergies Allergy/AdvReac Type Severity Reaction Status Date / Time No Known Allergies Allergy Verified 11/06/19 11:25 Exam Limitations: No Limitations - Ebola screening Have you traveled outside of the country in the last 21 days: No (N) Have you had contact with anyone from an Ebola affected area: No Do you have a fever: No - Review of Systems Constitutional: Loss of Appetite EENT: reports: Blurred Vision (glasses) Respiratory: reports: No Symptoms reported Cardiac: reports: No Symptoms Reported GI: reports: Nausea : reports: No Symptoms Reported Musculoskeletal: reports: No Symptoms Reported Integumentary: reports: No Symptoms Reported Neuro: reports: No Symptoms reported Endocrine: reports: No Symptoms Reported Hematology: reports: No Symptoms Reported Psychiatric: reports: Anxious Patient History - Patient Medical History Hx Anemia: No Hx Asthma: Yes Hx Chronic Obstructive Pulmonary Disease (COPD): No Hx Cancer: No Hx Cardiac Disorders: No Hx Congestive Heart Failure: No Hx Hypertension: Yes Hx Hypercholesterolemia: No Hx Pacemaker: No HX Cerebrovascular Accident: No Hx Seizures: No Hx Dementia: No Hx Diabetes: No Hx Gastrointestinal Disorders: No Hx Liver Disease: No Hx Genitourinary Disorders: No Hx Sexually Transmitted Disorders: No Hx Renal Disease (ESRD): No Hx Thyroid Disease: No Hx Human Immunodeficiency Virus (HIV): No Hx Hepatitis C: No Hx Depression: Yes Hx Suicide Attempt: No Hx Bipolar Disorder: No Hx Schizophrenia: No - Patient Surgical History Past Surgical History: Yes Hx Neurologic Surgery: No Hx Cataract Extraction: No Hx Cardiac Surgery: No Hx Lung Surgery: No Hx Breast Surgery: No Hx Breast Biopsy: No Hx Abdominal Surgery: Yes (at age 3, esophagael atresia) Hx Appendectomy: No Hx Cholecystectomy: No Hx Genitourinary Surgery: No Hx Section: No Hx Orthopedic Surgery: No Anesthesia Reaction: No - PPD History Previous Implant?: Yes Documented Results: Negative w/proof Date: 09/10/19 Results: 0 mm - Smoking Cessation Smoking history: Current every day smoker Have you smoked in the past 12 months: Yes Aproximately how many cigarettes per day: 20 Cigars Per Day: 0 Hx Chewing Tobacco Use: No Initiated information on smoking cessation: Yes 'Breaking Loose' booklet given: 12/08/19 - Substances abused Alcohol Substance route: Oral Frequency: Daily Amount used: 1/2 PINT OF VODKA Age of first use: 14 Date of last use: 11/05/19 Heroin Substance route: Inhalation Frequency: Daily Amount used: 12 BAGS Age of first use: 23 Date of last use: 11/06/19 Benzodiazepine (Klonopin) Substance route: Oral Frequency: 3-6 times per week Amount used: 6 tabs 2 mg each Age of first use: 31 Date of last use: 12/08/19 Admission Physical Exam [facility] - Physical General Appearance: Yes: Thin, Anxious HEENTM: Yes: Hearing grossly Normal, Normocephalic Respiratory: Yes: Lungs Clear, Normal Breath Sounds Neck: Yes: Within Normal Limits Breast: Yes: Breast Exam Deferred Cardiology: Yes: S1, S2, Tachycardia Abdominal: Yes: Normal Bowel Sounds, Non Tender, Flat, Soft Genitourinary: Yes: Other (deferred) Back: Yes: Normal Inspection Musculoskeletal: Yes: Within Normal Limits Extremities: Yes: Within Normal Limits Neurological: Yes: Alert Integumentary: Yes: Within Normal Limits - Diagnostic (1) Alcohol dependence with withdrawal Status: Acute Qualifiers: Complication of substance-induced condition: uncomplicated Qualified Code(s ): F10.230 - Alcohol dependence with withdrawal, uncomplicated (2) Benzodiazepine withdrawal without complication Status: Acute (3) Nicotine dependence Status: Chronic Qualifiers: Nicotine product type: cigarettes Substance use status: in withdrawal Qualified Code(s): F17.213 - Nicotine dependence, cigarettes, with withdrawal (4) Opioid dependence with withdrawal Status: Acute (5) Hypertension Status: Chronic Qualifiers: Hypertension type: essential hypertension Qualified Code(s): I10 - Essential (primary) hypertension Cleared for Admission [facility] - Detox or Rehab [facility] Level of Care: Medically Managed Breathalyzer - Breathalyzer Breathalyzer: 0 Urine Drug Screen - Test Device Lot number: [id number] Expiration date: 05/19/21 - Control Is test valid?: Yes - Results Drug screen NEGATIVE: No Urine drug screen results: MOP-Opiates, BZO-Benzodiazepines Inpatient Rehab Admission - Rehab Decision to Admit Inpatient rehab admission?: No - Smoking History Smoking history: Current every day smoker Have you smoked in the past 12 months: Yes Aproximately how many cigarettes per day: 20 - Alcohol/Substance Use Hx Alcohol Use: Yes Admission [facility] Allergies/Adverse Reactions: Allergies Allergy/AdvReac Type Severity Reaction Status Date / Time No Known Allergies Allergy Verified 12/08/19 14:26 Exam Limitations: No Limitations - Ebola screening Have you traveled outside of the country in the last 21 days: No Patient History - Patient Medical History Hx Anemia: No Hx Asthma: Yes Hx Chronic Obstructive Pulmonary Disease (COPD): No Hx Cancer: No Hx Cardiac Disorders: No Hx Congestive Heart Failure: No Hx Hypertension: Yes (on meds.) Hx Hypercholesterolemia: No Hx Pacemaker: No HX Cerebrovascular Accident: No Hx Seizures: No Hx Dementia: No Hx Diabetes: No Hx Gastrointestinal Disorders: No Hx Liver Disease: No Hx Genitourinary Disorders: No Hx Sexually Transmitted Disorders: No Hx Renal Disease (ESRD): No Hx Thyroid Disease: No Hx Human Immunodeficiency Virus (HIV): No Hx Hepatitis C: No Hx Depression: Yes Hx Suicide Attempt: No Hx Bipolar Disorder: No Hx Schizophrenia: No - Patient Surgical History Past Surgical History: Yes Hx Neurologic Surgery: No Hx Cataract Extraction: No Hx Cardiac Surgery: No Hx Lung Surgery: No Hx Breast Surgery: No Hx Breast Biopsy: No Hx Abdominal Surgery: Yes (at age 3) Hx Appendectomy: No Hx Cholecystectomy: No Hx Genitourinary Surgery: No Hx Section: No Hx Orthopedic Surgery: No Anesthesia Reaction: No - PPD History Previous Implant?: Yes Documented Results: Negative w/o proof Implanted On Prior [facility] Admission?: Yes Date: 09/10/19 Results: 0 mm - Smoking Cessation Smoking history: Current every day smoker Have you smoked in the past 12 months: Yes Aproximately how many cigarettes per day: 20 Cigars Per Day: 0 Hx Chewing Tobacco Use: No Initiated information on smoking cessation: Yes 'Breaking Loose' booklet given: 12/08/19 - Substances abused Heroin Substance route: Inhalation Frequency: Daily Amount used: 16 bags Age of first use: 23 Date of last use: 12/08/19 Alcohol Substance route: Oral Frequency: Daily Amount used: 1/2 pint vodka Age of first use: 15 Date of last use: 12/07/19 Admission Physical Exam S - Vital Signs Vital Signs: Vital Signs - 24 hr 12/08/19 14:27 Temperature 98.2 F Pulse Rate 74 Respiratory 18 Rate Blood Pressure 107/71 Cleared for Admission [facility] - Detox or Rehab S Level of Care: Medically Managed Breathalyzer - Breathalyzer Breathalyzer: 0 Urine Drug Screen - Test Device Lot number: [id number] Expiration date: 09/18/21 - Control Is test valid?: Yes - Results Drug screen NEGATIVE: No Urine drug screen results: MET-Methamphetamine, FEN-Fentanyl, MOP-Opiates, MTD- Methadone, BZO-Benzodiazepines Inpatient Rehab Admission - Rehab Decision to Admit Inpatient rehab admission?: No
[2019-12-08] MEDS ORDERED: METHOCARBAMOL 500 MG TABLET PO PRN (15:39)
[2019-12-08] MEDS ORDERED: hydrOXYzine PAMOATE 25 MG CAPSULE (FP) PO PRN (15:39)
[2019-12-08] MEDS ORDERED: IBUPROFEN 400 MG TABLET (FP) PO PRN (15:39)
[2019-12-08] MEDS ORDERED: MENTHOL/PHENOL 1 EACH UD MM PRN (15:39)
[2019-12-08] MEDS ORDERED: MAG HYDROX/AL HYDROX/SIMETH 30 ML UNIT-DOSE CUP PO PRN (15:39)
[2019-12-08] MEDS ORDERED: BISMUTH SUBSALICYLATE 524 MG/30 ML UD PO PRN (15:39)
[2019-12-08] MEDS ORDERED: cloNIDine HCL 0.1 MG TABLET PO PRN (15:39)
[2019-12-08] MEDS ORDERED: chlordiazePOXIDE HCL 25 MG CAPSULE PO PRN (15:39)
[2019-12-08] MEDS ORDERED: MAGNESIUM HYDROX 2400MG/30ML ORAL SUSPENSION 30 ML CUP PO PRN (15:39)
[2019-12-08] MEDS ORDERED: MAGNESIUM CITRATE 300 ML BOTTLE PO PRN (15:39)
[2019-12-08] MEDS ORDERED: ACETAMINOPHEN 325 MG TABLET (FP) PO PRN ×2 (15:39)
[2019-12-08] MEDS ORDERED: METHADONE HCL 10 MG TABLET (FOR DETOX USE ONLY) PO ONE (17:00)
[2019-12-08] MEDS: chlordiazePOXIDE HCL 25 MG CAPSULE PO SCH ×2 (17:10→22:21)
[2019-12-08] MEDS: NICOTINE 21 MG/24 HOURS TOPICAL PATCH TD SCH (17:10)
[2019-12-08] MEDS: THIAMINE HCL 100 MG TABLET (FP) PO SCH (22:21)
[2019-12-08] MEDS: MELATONIN 5 MG TABLETS PO PRN (22:21)
[2019-12-09] MEDS: chlordiazePOXIDE HCL 25 MG CAPSULE PO SCH ×4 (05:44→22:07)
[2019-12-09] MEDS ORDERED: METHADONE HCL 10 MG TABLET (FOR DETOX USE ONLY) ONE (08:49)
[2019-12-09] MEDS ORDERED: METHADONE HCL 5 MG TABLET (FOR DETOX USE ONLY) ONE (08:50)
[2019-12-09] MEDS ORDERED: METHADONE (DETOX) 20 MG, METHADONE (DETOX) 5 MG PO ONE (10:00)
[2019-12-09] MEDS: PRENATAL VITAMINS W/ FOLIC ACID TABLET (FP) PO SCH (10:06)
[2019-12-09] MEDS: NICOTINE 21 MG/24 HOURS TOPICAL PATCH TD SCH (10:07)
--- NOTE | 2019-12-09 11:27 | PN ---
[facility] CIWA - CIWA Score Nausea/Vomitin-Mild Nausea/No Vomiting Muscle Tremors: 3 Anxiety: 3 Agitation: 1-Slight > Activity Paroxysmal Sweats: 2 Orientation: 0-Oriented Tacttile Disturbances: 0-None Auditory Disturbances: 0-None Visual Disturbances: 2-Mild Sensitivity Headache: 0-None Present CIWA-Ar Total Score: 12 S COWS - Scale Resting Pulse: 1= [place] 81-100 Sweatin= Chills/Flushing Restless Observation: 0= Sits Still Pupil Size: 1= Pupils >than Normal Bone or Joint Aches: 0= None Runny Nose/ Eye Tearin= None GI Upset > 30mins: 2= Nausea/Diarrhea Tremor Observation of Outstretched Hands: 2= Slight Tremor Visible Yawning Observation: 0= None Anxiety or Irritability: 1=Feels Anxious/Irritable Goose Flesh Skin: 0=Smooth Skin COWS Score: 8 [facility] Progress Note (SOAP) Subjective: 39 years old male admitted on 12/08/19 for alcohol benzo opiate withdrawal sx management treating with librium and methadone detox regiments feeling ok today ate breakfast in room requests ensure due to "weight loss" ensure supplement discuss balance diet with exercise regularly Objective: 12/09/19 11:27 Vital Signs Temperature 98.1 F 12/09/19 08:49 Pulse Rate 86 12/09/19 08:49 Respiratory Rate 18 12/09/19 08:49 Blood Pressure 141/91 12/09/19 08:49 O2 Sat by Pulse Oximetry (%) 12/09/19 11:30 lab see 12/09/19 11:31 12/08/19 lab report Assessment: 12/09/19 11:31 alcohol benzo opiate withdrawal Plan: librium and methadone regiments
--- NOTE | 2019-12-09 12:59 | CONSULT ---
[facility] Psychiatric Consult - Data Date of interview: 12/09/19 Admission source: [facility] Identifying data: Patient is a 39 year old single male, without children, unemployed, domiciled, and is not supported with any financial assistance. This is one of multiple admissions for patient. Patient admitted to for alcohol and opiate dependence. Substance Abuse History: Smoking Cessation. Smoking history: Current every day smoker. Have you smoked in the past 12 months: Yes. Aproximately how many cigarettes per day: 20. Cigars Per Day: 0. Hx Chewing Tobacco Use: No. Initiated information on smoking cessation: Yes. 'Breaking Loose' booklet given : 12/08/19. - Substances abused. Alcohol. Substance route: Oral. Frequency: Daily. Amount used: 1/2 PINT OF VODKA. Age of first use: 14. Date of last use: 11/05/19. Heroin. Substance route: Inhalation. Frequency: Daily. Amount used: 12 BAGS. Age of first use: 23. Date of last use: . Benzodiazepine (Klonopin). Substance route: Oral. Frequency: 3-6 times per week. Amount used: 6 tabs 2 mg each. Age of first use: 31. Date of last use: 12/08/19 Medical History: Asthma, hypertension, Abdominal Surgery (age 3) Psychiatric History: Patient denies history of psychiatric hospitalizations, and suicide attempt. Mr. Penn reports history of outpatient psychiatric care in [place], [place]. Reports last seeing the psychiatrist one year ago and during that time he reports being prescribed trazodone 150mg and klonopin 1mg BID. Mr. Penn now receives refills of trazodone 150mg from his primary care physician. At present he reports feeling sad and is experiencing difficulty sleeping. Physical/Sexual Abuse/Trauma History: denies. Mental Status Exam - Mental Status Exam Alert and Oriented to: Time, Place, Person Cognitive Function: Good Patient Appearance: Well Groomed Mood: Withdrawn Affect: Mood Congruent Patient Behavior: Fatigued, Cooperative Speech Pattern: Appropriate Voice Loudness: Normal Thought Process: Goal Oriented Thought Disorder: Not Present Hallucinations: Denies Suicidal Ideation: Denies Homicidal Ideation: Denies Insight/Judgement: Poor Sleep: Poorly Appetite: Fair Muscle strength/Tone: Normal Gait/Station: Normal Psychiatric Findings - Problem List ([place] 1, 2,3) (1) Alcohol dependence with withdrawal Current Visit: Yes Status: Acute Qualifiers: Complication of substance-induced condition: uncomplicated Qualified Code(s ): F10.230 - Alcohol dependence with withdrawal, uncomplicated (2) Opioid dependence with withdrawal Current Visit: Yes Status: Acute (3) Substance-induced sleep disorder Current Visit: Yes Status: Acute (4) Substance induced mood disorder Current Visit: Yes Status: Acute - Initial Treatment Plan Initial Treatment Plan: Psychoeducation provided. Detoxification in progress. Will order Trazodone 100mg HS. Benefits and side effects discussed. Verbal consent given.
[2019-12-09] MEDS: THIAMINE HCL 100 MG TABLET (FP) PO SCH (22:07)
[2019-12-09] MEDS: traZODone HCL 100 MG TABLET (FP) PO SCH (22:07)
[2019-12-09] MEDS: MELATONIN 5 MG TABLETS PO PRN (22:08)
[2019-12-10] MEDS: chlordiazePOXIDE HCL 25 MG CAPSULE PO SCH ×4 (06:24→22:23)
[2019-12-10] MEDS ORDERED: METHADONE HCL 10 MG TABLET (FOR DETOX USE ONLY) PO ONE (10:00)
[2019-12-10] MEDS: PRENATAL VITAMINS W/ FOLIC ACID TABLET (FP) PO SCH (10:10)
[2019-12-10] MEDS: NICOTINE 21 MG/24 HOURS TOPICAL PATCH TD SCH (10:11)
--- NOTE | 2019-12-10 12:00 | PN ---
[facility] CIWA - CIWA Score Nausea/Vomitin-Mild Nausea/No Vomiting Muscle Tremors: None Anxiety: 2 Agitation: 0-Normal Activity Paroxysmal Sweats: No Perspiration Orientation: 0-Oriented Tacttile Disturbances: 0-None Auditory Disturbances: 0-None Visual Disturbances: 0-None Headache: 0-None Present CIWA-Ar Total Score: 3 BHS COWS - Scale Resting Pulse: 0= [place] 80 or Below Sweatin= Chills/Flushing Restless Observation: 0= Sits Still Pupil Size: 0= Normal to Room Light Bone or Joint Aches: 0= None Runny Nose/ Eye Tearin= Nasal Congestion GI Upset > 30mins: 0= None Tremor Observation of Outstretched Hands: 0= None Yawning Observation: 0= None Anxiety or Irritability: 0= None Goose Flesh Skin: 0=Smooth Skin COWS Score: 2 S Progress Note (SOAP) Subjective: Loss of appetite, no nause or vomiting Objective: 12/10/19 11:57 Vital Signs Temperature 97.3 F L 12/10/19 08:33 Pulse Rate 63 12/10/19 08:33 Respiratory Rate 18 12/10/19 08:33 Blood Pressure 128/80 12/10/19 08:33 O2 Sat by Pulse Oximetry (%) Vital Signs - 24 hr 12/09/19 12/09/19 12/09/19 12:56 17:35 20:37 Temperature 98.6 F 98.1 F 100.1 F H Pulse Rate 71 74 77 Respiratory 18 18 18 Rate Blood Pressure 104/69 116/71 119/78 12/10/19 12/10/19 12/10/19 04:03 05:44 08:33 Temperature 98.3 F 97.3 F L Pulse Rate 62 63 Respiratory 18 18 18 Rate Blood Pressure 109/63 128/80 PE Gnl: WDWN, in no distress, mild loss of appetite Cranial nerves; EOMI Mental status: nl Coord: grossly nl Assessment: 12/10/19 11:58 1. Opioid use disorder 2. Alcohol use disorder 3. Hx Asthma, HTN 4. Seen by Psychiatry yesterday, on Trazadone Plan: 1. Librium withdrawal protocol 2. Methadone withdrawal protocol 3. continue Trazadone
[2019-12-10] MEDS: MELATONIN 5 MG TABLETS PO PRN (22:23)
[2019-12-10] MEDS: traZODone HCL 100 MG TABLET (FP) PO SCH (22:23)
[2019-12-10] MEDS: THIAMINE HCL 100 MG TABLET (FP) PO SCH (22:23)
[2019-12-11] MEDS ORDERED: chlordiazePOXIDE HCL 10 MG CAPSULE PO PRN
[2019-12-11] MEDS: chlordiazePOXIDE HCL 10 MG CAPSULE PO SCH ×4 (05:52→22:17)
[2019-12-11] MEDS ORDERED: METHADONE HCL 5 MG TABLET (FOR DETOX USE ONLY) ONE (08:57)
[2019-12-11] MEDS ORDERED: METHADONE HCL 10 MG TABLET (FOR DETOX USE ONLY) ONE (08:57)
[2019-12-11] MEDS ORDERED: METHADONE (DETOX) 10 MG, METHADONE (DETOX) 5 MG PO ONE (10:00)
[2019-12-11] MEDS: PRENATAL VITAMINS W/ FOLIC ACID TABLET (FP) PO SCH (10:21)
[2019-12-11] MEDS: NICOTINE 21 MG/24 HOURS TOPICAL PATCH TD SCH (10:22)
--- NOTE | 2019-12-11 10:40 | PN ---
[facility] CIWA - CIWA Score Nausea/Vomitin-No Nausea/No Vomiting Muscle Tremors: None Anxiety: 2 Agitation: 0-Normal Activity Paroxysmal Sweats: 2 Orientation: 0-Oriented Tacttile Disturbances: 0-None Auditory Disturbances: 0-None Visual Disturbances: 0-None Headache: 1-Very Mild CIWA-Ar Total Score: 5 BHS COWS - Scale Resting Pulse: 0= [place] 80 or Below Sweatin= No chills or [place] Restless Observation: 1= Difficult to Sit Still Pupil Size: 0= Normal to Room Light Bone or Joint Aches: 1= Mild Discomfort Runny Nose/ Eye Tearin= None GI Upset > 30mins: 0= None Tremor Observation of Outstretched Hands: 0= None Yawning Observation: 1= 1-2x During Session Anxiety or Irritability: 2=Irritable/Anxious Goose Flesh Skin: 0=Smooth Skin COWS Score: 5 S Progress Note (SOAP) Subjective: c/o mild withdrawal symptoms. Objective: 12/11/19 10:39 Vital Signs 12/11/19 12/11/19 12/11/19 03:30 07:42 09:08 Temperature 97.2 F L 96.7 F L Pulse Rate 68 63 Respiratory 18 16 18 Rate Blood Pressure 110/72 115/81 Assessment: 12/11/19 10:39 AOX3, in no acute respiratory distress. Full ROM, ambulating in the unit. Mild Withdrawal symptoms. Plan: continue detox. Increase fluids.
[2019-12-11] MEDS: MELATONIN 5 MG TABLETS PO PRN (22:17)
[2019-12-11] MEDS: traZODone HCL 100 MG TABLET (FP) PO SCH (22:17)
[2019-12-11] MEDS: THIAMINE HCL 100 MG TABLET (FP) PO SCH (22:17)
[2019-12-12] MEDS: chlordiazePOXIDE HCL 10 MG CAPSULE PO SCH ×2 (06:04→17:30)
[2019-12-12] MEDS ORDERED: METHADONE HCL 10 MG TABLET (FOR DETOX USE ONLY) PO ONE (10:00)
[2019-12-12] MEDS: NICOTINE 21 MG/24 HOURS TOPICAL PATCH TD SCH (10:10)
[2019-12-12] MEDS: PRENATAL VITAMINS W/ FOLIC ACID TABLET (FP) PO SCH (10:10)
--- NOTE | 2019-12-12 10:31 | PN ---
S CIWA - CIWA Score Nausea/Vomitin-No Nausea/No Vomiting Muscle Tremors: 1-None Visible, but [place] Anxiety: 1-Mildly Anxious Agitation: 0-Normal Activity Paroxysmal Sweats: No Perspiration Orientation: 0-Oriented Tacttile Disturbances: 0-None Auditory Disturbances: 0-None Visual Disturbances: 1-Very Mild Sensitivity Headache: 0-None Present CIWA-Ar Total Score: 3 BHS COWS - Scale Resting Pulse: 0= [place] 80 or Below Sweatin= No chills or [place] Restless Observation: 0= Sits Still Pupil Size: 0= Normal to Room Light Bone or Joint Aches: 1= Mild Discomfort Runny Nose/ Eye Tearin= None GI Upset > 30mins: 0= None Tremor Observation of Outstretched Hands: 1= Tremor [place], Not Seen Yawning Observation: 0= None Anxiety or Irritability: 1=Feels Anxious/Irritable Goose Flesh Skin: 0=Smooth Skin COWS Score: 3 S Progress Note (SOAP) Subjective: 39 years old male admitted on 12/08/19 for alcohol benzo opiate withdrawal sx management treating with librium and methadone detox regiments feeling better today less tremor mild body aches encourage picking up narcan from pharmacy upon discharge Objective: 12/12/19 10:33 Vital Signs Temperature 98.9 F 12/12/19 08:53 Pulse Rate 74 12/12/19 08:53 Respiratory Rate 18 12/12/19 08:53 Blood Pressure 107/66 12/12/19 08:53 O2 Sat by Pulse Oximetry (%) 12/12/19 10:34 lab seen 12/08/19 report Assessment: 12/12/19 10:35 alcohol benzo opiate withdrawal Plan: librium and methadone regiments
[2019-12-12] MEDS: traZODone HCL 100 MG TABLET (FP) PO SCH (22:02)
[2019-12-12] MEDS: THIAMINE HCL 100 MG TABLET (FP) PO SCH (22:02)
[2019-12-12] MEDS: MELATONIN 5 MG TABLETS PO PRN (22:02)
[2019-12-13] MEDS ORDERED: chlordiazePOXIDE HCL 10 MG CAPSULE PO ONE (05:00)
[2019-12-13] MEDS ORDERED: METHADONE HCL 5 MG TABLET (FOR DETOX USE ONLY) PO ONE (06:00)
--- NOTE | 2019-12-13 09:21 | DS ---
[facility] Detox Discharge Summary Admission Date: 12/08/19 Discharge Date: 12/13/19 - History Present History: Alcohol Dependence, Opioid Dependence, Sedative Dependence Additional Comments: 39 years old male admitted on 12/08/19 for alcohol benzo opiate withdrawal sx management treated wtih librium and methadone detox regiments Mr Penn has completed the librium and methadone regiments and is tolerated well seen by psychiatrist resume trazodone alert oriented x 2 respiratory clear lungs bilaterally on auscultation abdomen soft no rebound tenderness skin warm and dry Pertinent Past History: time for discharge 38 minutes - Physical Exam Results Vital Signs: Vital Signs Temperature 97.7 F 12/13/19 08:45 Pulse Rate 84 12/13/19 08:45 Respiratory Rate 18 12/13/19 08:45 Blood Pressure 116/78 12/13/19 08:45 O2 Sat by Pulse Oximetry (%) Pertinent Admission Physical Exam Findings: alcohol benzo opiate withdrawal lab see 11/29/19 result - Treatment Hospital Course: Detox Protocol Followed, Detoxed Safely, Responded well, Discharged Condition Good, Rehab Referral Accepted Patient has Accepted [facility] Ref[facility] - Medication Discharge Medications: Ambulatory Orders Albuterol Sulfate Inhaler - [Ventolin HFA Inhaler -] 2 inh PO Q4H PRN #1 inhaler 08/27/18 Propranolol HCl 40 mg PO DAILY 04/30/19 traZODone HCL [Desyrel -] 150 mg PO HS 04/30/19 Naloxone HCl [Narcan] 4 mg NS ASDIR PRN #1 spray 12/12/19 - Diagnosis (1) Alcohol dependence with withdrawal Current Visit: Yes Status: Acute Qualifiers: Complication of substance-induced condition: uncomplicated Qualified Code(s ): F10.230 - Alcohol dependence with withdrawal, uncomplicated (2) Opioid dependence with withdrawal Current Visit: Yes Status: Acute (3) Substance induced mood disorder Current Visit: Yes Status: Suspected (4) Benzodiazepine withdrawal without complication Current Visit: Yes Status: Acute (5) Asthma Current Visit: Yes Status: Chronic Qualifiers: Asthma severity: mild Asthma persistence: intermittent Asthma complication type: uncomplicated Qualified Code(s): J45.20 - Mild intermittent asthma, uncomplicated (6) Hypertension Current Visit: Yes Status: Chronic Qualifiers: Hypertension type: essential hypertension Qualified Code(s): I10 - Essential (primary) hypertension (7) Nicotine dependence Current Visit: Yes Status: Acute Qualifiers: Nicotine product type: cigarettes Substance use status: in withdrawal Qualified Code(s): F17.213 - Nicotine dependence, cigarettes, with withdrawal (8) Substance induced mood disorder Current Visit: Yes Status: Suspected - AMA Did Patient Leave Against Medical Advice: No CIWA Score - CIWA Score Nausea/Vomitin-No Nausea/No Vomiting Muscle Tremors: 1-None Visible, but [place] Anxiety: 0-No Anxiety, at Ease Agitation: 0-Normal Activity Paroxysmal Sweats: No Perspiration Orientation: 0-Oriented Tacttile Disturbances: 0-None Auditory Disturbances: 0-None Visual Disturbances: 0-None Headache: 0-None Present CIWA-Ar Total Score: 1 COWS (PN) - Opiate Withdrawal Resting Pulse: 1= [place] 81-100 Sweatin= No chills or Flushing Restless Observation: 0= Sits Still Pupil Size: 0= Normal to Room Light Bone or Joint Aches: 0= None Runny Nose/ Eye Tearin= None GI Upset > 30mins: 0= None Tremor Observation of Outstretched Hands: 1= Tremor [place], Not Seen Yawning Observation: 0= None Anxiety or Irritability: 0= None Goose Flesh Skin: 0=Smooth Skin COWS Score: 2
[2019-12-13] MEDS: PRENATAL VITAMINS W/ FOLIC ACID TABLET (FP) PO SCH (10:16)
[2019-12-13] MEDS: NICOTINE 21 MG/24 HOURS TOPICAL PATCH TD SCH (10:16)
[2019-12-13 13:16] VITALS: BP 98/65; PULSE 74; TEMP 98.3
== END 2019-12-13 03:30 | disposition other institution (70) | DRG 773 ==
LOC: YASAS 12:39 → Y3N 14:46
PROVIDERS: ADMIT Allergy & Immunology; ATTEND Allergy & Immunology
PROC: HZ2ZZZZ Detoxification Services for Substance Abuse Treatment (ICD-10-PCS; principal; 2019-12-08)
DX: F10.230 Alcohol dependence with withdrawal, uncomplicated (principal); F11.23 Opioid dependence with withdrawal; F13.230 Sedative, hypnotic or anxiolytic dependence with withdrawal, uncomplicated; F17.213 Nicotine dependence, cigarettes, with withdrawal; F19.282 Other psychoactive substance dependence with psychoactive substance-induced sleep disorder; F19.24 Other psychoactive substance dependence with psychoactive substance-induced mood disorder; I10 Essential (primary) hypertension; J45.20 Mild intermittent asthma, uncomplicated

== ENCOUNTER 2019-12-13 15:47 | Inpatient (IN) | payer OTHER ==
--- NOTE | 2019-12-13 12:30 | HP ---
[facility] Rehab Assess/Revision - Admission History Admitted to Rehab from: [facility] Date of Admission to Rehab: 12/13/19 - Findings Detox History & Physical reviewed: Yes Concur with findings: Yes Comments/Additional Findings: transferred from detox to rehab admission as per protocol Inpatient Rehab Admission - Rehab Decision to Admit Inpatient rehab admission?: Yes - Initial Determination Are CD services needed?: Yes Free of communicable disease: Yes Not in need of hospitalization: Yes - Rehab Admission Criteria Previous failed treatment: Yes Poor recovery environment: Yes Comorbidities: Yes Lacks judgement: Yes Patient is meeting Inpatient Rehab admission criteria:: Yes
[~2019-12-13 15:47] MED LIST: ALBUTEROL SO4 HFA INHALER IH PRN; LOPERAMIDE HCL 2 MG CAPSULE PO PRN; MAG HYDROX/AL HYDROX/SIMETH 30 ML UNIT-DOSE CUP PO PRN; MAGNESIUM CITRATE 300 ML BOTTLE PO PRN; MAGNESIUM HYDROX 2400MG/30ML ORAL SUSPENSION 30 ML CUP PO PRN; MENTHOL/PHENOL 1 EACH UD MM PRN; P-EPHED 60MG/TRIPROLIDI 2.5MG TABLET PO PRN; guaiFENesin 200 MG/10 ML 10 ML UNIT-DOSE CUPS PO PRN
[2019-12-13] MEDS: THIAMINE HCL 100 MG TABLET (FP) PO SCH (21:17)
[2019-12-13] MEDS: traZODone HCL 100 MG TABLET (FP) PO SCH (21:17)
[2019-12-14] MEDS: PRENATAL VITAMINS W/ FOLIC ACID TABLET (FP) PO SCH (10:25)
[2019-12-14] MEDS: NICOTINE 21 MG/24 HOURS TOPICAL PATCH TD SCH (10:25)
--- NOTE | 2019-12-14 15:50 | PN ---
[facility] Progress Note Note: Pt is a 39 y/o male with a hx of ALLYSON-heroin,alcohol admitted to rehab on from [address] [place] [address] after completing detox treatment. Pt c/o n/n, no diarrhea, watery eyes,nasal congestions,hot/cold chills. PMHx:HTN, Heart Palpitations, Asthma. Pt reports on Propanalol. BP and HR currently low. Psych Hx:Depression/Anxiety. PSHx:sx as a months baby-stomach sx for reflux problems. Pt reports he had primary care provider and goes to Dr. Hakan Huang at [address] [place] [address]. Vital Signs - 24 hr 12/14/19 12/14/19 12/14/19 00:30 03:30 07:42 Temperature 97.8 F Pulse Rate 62 Respiratory 14 16 16 Rate Blood Pressure 109/70 Alert o x 3 nad oob ambulating with steady gait extremities/skin;no edema;skin intact. A/P ALLYSON s/p detox protracted w/s Maintain safety increase po fluids Robaxin 500 mg po tid prn for muscle spasms Actifed prn for nasal sx zofran prn as directed Revisit pt's home medications and reorder after verification
[2019-12-14] MEDS ORDERED: ONDANSETRON *ODT* 4 MG TABLET SL PRN (15:53)
[2019-12-14] MEDS ORDERED: COLLOIDAL OATMEAL 1 BAR EACH TP PRN (15:55)
[2019-12-14] MEDS: THIAMINE HCL 100 MG TABLET (FP) PO SCH (21:22)
[2019-12-14] MEDS: traZODone HCL 100 MG TABLET (FP) PO SCH (21:22)
[2019-12-14] MEDS: METHOCARBAMOL 500 MG TABLET PO PRN (21:23)
[2019-12-14] MEDS: MELATONIN 5 MG TABLETS PO PRN (21:23)
[2019-12-15] MEDS: PRENATAL VITAMINS W/ FOLIC ACID TABLET (FP) PO SCH (09:37)
[2019-12-15] MEDS: NICOTINE 21 MG/24 HOURS TOPICAL PATCH TD SCH (09:38)
[2019-12-15] MEDS: METHOCARBAMOL 500 MG TABLET PO PRN ×2 (09:38→21:26)
[2019-12-15] MEDS: traZODone HCL 100 MG TABLET (FP) PO SCH (21:24)
[2019-12-15] MEDS: THIAMINE HCL 100 MG TABLET (FP) PO SCH (21:24)
[2019-12-15] MEDS: MELATONIN 5 MG TABLETS PO PRN (21:26)
[2019-12-15] MEDS: ACETAMINOPHEN 325 MG TABLET (FP) PO PRN (21:26)
[2019-12-16] MEDS: ACETAMINOPHEN 325 MG TABLET (FP) PO PRN ×3 (10:16→21:31)
[2019-12-16] MEDS: PRENATAL VITAMINS W/ FOLIC ACID TABLET (FP) PO SCH (10:16)
[2019-12-16] MEDS: METHOCARBAMOL 500 MG TABLET PO PRN (10:17)
--- NOTE | 2019-12-16 11:03 | CONSULT ---
[facility] Psychiatric Consult - Data Date of interview: 12/16/19 Admission source: [facility] Identifying data: Patient is a 39 year old single male, without children, unemployed, domiciled, and is not supported with any financial assistance. This is one of multiple admissions for patient. Patient admitted to for alcohol and opiate dependence. Substance Abuse History: Smoking Cessation. Smoking history: Current every day smoker. Have you smoked in the past 12 months: Yes. Aproximately how many cigarettes per day: 20. Cigars Per Day: 0. Hx Chewing Tobacco Use: No. Initiated information on smoking cessation: Yes. 'Breaking Loose' booklet given : 12/08/19. - Substances abused. Alcohol. Substance route: Oral. Frequency: Daily. Amount used: 1/2 PINT OF VODKA. Age of first use: 14. Date of last use: 11/05/19. Heroin. Substance route: Inhalation. Frequency: Daily. Amount used: 12 BAGS. Age of first use: 23. Date of last use: . Benzodiazepine (Klonopin). Substance route: Oral. Frequency: 3-6 times per week. Amount used: 6 tabs 2 mg each. Age of first use: 31. Date of last use: 12/08/19 Medical History: Asthma, hypertension, Abdominal Surgery (age 3) Psychiatric History: Patient denies history of psychiatric hospitalizations, and suicide attempt. Mr. Penn reports history of outpatient psychiatric care in [place], [place]. Reports last seeing the psychiatrist one year ago and during that time he reports being prescribed trazodone 150mg and klonopin 1mg BID. Mr. Penn now receives refills of trazodone 150mg from his primary care physician. At present Mr. Penn is experiencing difficulty sleeping and reports feeling sad secondary to lack of employment, issues with family, and history of substance abuse. Patient denies thoughts or urges to hurt self or others. Physical/Sexual Abuse/Trauma History: denies. Mental Status Exam - Mental Status Exam Alert and Oriented to: Time, Place, Person Cognitive Function: Good Patient Appearance: Well Groomed Mood: Sad Affect: Mood Congruent Patient Behavior: Appropriate, Cooperative Speech Pattern: Appropriate Voice Loudness: Normal Thought Process: Intact, Goal Oriented Thought Disorder: Not Present Hallucinations: Denies Suicidal Ideation: Denies Homicidal Ideation: Denies Insight/Judgement: Poor Sleep: Poorly Appetite: Fair Muscle strength/Tone: Normal Gait/Station: Normal Psychiatric Findings - Problem List ([place] 1, 2,3) (1) Alcohol use disorder Current Visit: Yes Status: Chronic (2) Cocaine dependence Current Visit: Yes Status: Chronic (3) Substance-induced sleep disorder Current Visit: Yes Status: Acute (4) Substance induced mood disorder Current Visit: Yes Status: Acute - Initial Treatment Plan Initial Treatment Plan: Psychoeducation provided. Rehab in progress. 1) Will d/ c trazodone 100mg. 2) Will order Trazodone 150mg HS + Belsomra 10mg HS PRN. Benefits and side effects discussed. Verbal consent given.
[2019-12-16] MEDS: NICOTINE 21 MG/24 HOURS TOPICAL PATCH TD SCH (11:37)
[2019-12-16] MEDS: THIAMINE HCL 100 MG TABLET (FP) PO SCH (21:28)
[2019-12-16] MEDS: traZODone HCL 50 MG TABLET (FP) PO SCH (21:29)
[2019-12-16] MEDS: MELATONIN 5 MG TABLETS PO PRN (21:30)
[2019-12-16] MEDS: SUVOREXANT 10 MG TABLET PO PRN (21:31)
[2019-12-17] MEDS: ACETAMINOPHEN 325 MG TABLET (FP) PO PRN ×3 (06:53→21:30)
[2019-12-17] MEDS: PRENATAL VITAMINS W/ FOLIC ACID TABLET (FP) PO SCH (10:15)
[2019-12-17] MEDS: METHOCARBAMOL 500 MG TABLET PO PRN ×2 (10:15→21:29)
[2019-12-17] MEDS: NICOTINE 21 MG/24 HOURS TOPICAL PATCH TD SCH (13:51)
--- NOTE | 2019-12-17 16:28 | PN ---
[facility] Progress Note Note: Pt reports he is on propanolol 40 mg daily. This designer/writer called pt's 2 home pharmacies- [facility] and [facility] to verify medication. [facility] pharmacists stated that pt is not getting this medication from them but on clonidine 0.1 mg po BID last in 2017 and Trazodone 50 mg po HS , last in 2018. [facility] pharmacist confirmed that pt is on these medications picked up last on 04/2019- Amlodipine 5 mg po daily, Clonidine 0.2 mg po daily, Albuterol Inhaler and Trazodone 150 mg po HS. Discussed the [facility] pharmacist re:effect of beta blockers and Asthma exacerbations( bronchospasms). Also discussed with Dr. Cruz on MDM Re:Propranolol use for this patient. Vital Signs (72 hours) 12/15/19 12/15/19 12/15/19 00:30 03:43 06:16 Temperature 97.9 F Pulse Rate 72 Respiratory 17 17 18 Rate Blood Pressure 139/93 12/15/19 12/16/19 12/16/19 10:00 00:34 03:38 Temperature Pulse Rate 81 Respiratory 18 18 Rate Blood Pressure 131/75 12/16/19 12/17/19 12/17/19 06:24 00:35 03:37 Temperature 97.7 F Pulse Rate 80 Respiratory 18 18 18 Rate Blood Pressure 97/67 12/17/19 07:24 Temperature 97.8 F Pulse Rate 78 Respiratory 18 Rate Blood Pressure 129/94 Alert o x 3 nad oob ambulating with steady gait A/P hx asthma(appears under control. Pt reports not using Albuterol x 10 yrs) Hx Palpitations MDM:may reorder Propranolol 40 mg po daily or may keep pt on Amlodipine 5 mg po daily and re-eval pt's Vital Signs.
[2019-12-17] MEDS ORDERED: amLODIPine BESYLATE 5 MG TABLET (FP) PO SCH (17:00)
[2019-12-17] MEDS: hydrOXYzine PAMOATE 25 MG CAPSULE (FP) PO PRN ×2 (17:36→21:29)
[2019-12-17] MEDS: traZODone HCL 50 MG TABLET (FP) PO SCH (21:29)
[2019-12-17] MEDS: SUVOREXANT 10 MG TABLET PO PRN (21:29)
[2019-12-17] MEDS: THIAMINE HCL 100 MG TABLET (FP) PO SCH (21:30)
[2019-12-17] MEDS: MELATONIN 5 MG TABLETS PO PRN (21:30)
[2019-12-18] MEDS: ACETAMINOPHEN 325 MG TABLET (FP) PO PRN ×2 (06:02→21:28)
[2019-12-18] MEDS: hydrOXYzine PAMOATE 25 MG CAPSULE (FP) PO PRN ×3 (06:02→21:29)
[2019-12-18] MEDS: PRENATAL VITAMINS W/ FOLIC ACID TABLET (FP) PO SCH (10:02)
[2019-12-18] MEDS: NICOTINE 21 MG/24 HOURS TOPICAL PATCH TD SCH (10:02)
[2019-12-18] MEDS: traZODone HCL 50 MG TABLET (FP) PO SCH (21:27)
[2019-12-18] MEDS: SUVOREXANT 10 MG TABLET PO PRN (21:28)
[2019-12-18] MEDS: THIAMINE HCL 100 MG TABLET (FP) PO SCH (21:29)
[2019-12-19] MEDS: hydrOXYzine PAMOATE 25 MG CAPSULE (FP) PO PRN ×2 (06:52→21:24)
[2019-12-19] MEDS: ACETAMINOPHEN 325 MG TABLET (FP) PO PRN ×2 (06:52→21:24)
[2019-12-19] MEDS: PRENATAL VITAMINS W/ FOLIC ACID TABLET (FP) PO SCH (10:05)
[2019-12-19] MEDS: NICOTINE 21 MG/24 HOURS TOPICAL PATCH TD SCH (10:05)
[2019-12-19] MEDS: traZODone HCL 50 MG TABLET (FP) PO SCH (21:22)
[2019-12-19] MEDS: THIAMINE HCL 100 MG TABLET (FP) PO SCH (21:24)
[2019-12-19] MEDS: SUVOREXANT 10 MG TABLET PO PRN (21:24)
[2019-12-19] MEDS: MELATONIN 5 MG TABLETS PO PRN (21:25)
[2019-12-20] MEDS: hydrOXYzine PAMOATE 25 MG CAPSULE (FP) PO PRN ×3 (06:21→21:25)
[2019-12-20] MEDS: ACETAMINOPHEN 325 MG TABLET (FP) PO PRN ×2 (06:22→21:26)
[2019-12-20] MEDS: PRENATAL VITAMINS W/ FOLIC ACID TABLET (FP) PO SCH (10:18)
[2019-12-20] MEDS: NICOTINE 21 MG/24 HOURS TOPICAL PATCH TD SCH (10:18)
[2019-12-20] MEDS: THIAMINE HCL 100 MG TABLET (FP) PO SCH (21:25)
[2019-12-20] MEDS: MELATONIN 5 MG TABLETS PO PRN (21:25)
[2019-12-20] MEDS: traZODone HCL 50 MG TABLET (FP) PO SCH (21:25)
[2019-12-21] MEDS: hydrOXYzine PAMOATE 25 MG CAPSULE (FP) PO PRN ×2 (07:15→21:20)
[2019-12-21] MEDS: ACETAMINOPHEN 325 MG TABLET (FP) PO PRN (07:15)
[2019-12-21] MEDS: PRENATAL VITAMINS W/ FOLIC ACID TABLET (FP) PO SCH (10:25)
[2019-12-21] MEDS: NICOTINE 21 MG/24 HOURS TOPICAL PATCH TD SCH (10:26)
[2019-12-21] MEDS: IBUPROFEN 400 MG TABLET (FP) PO PRN ×2 (10:27→21:20)
[2019-12-21] MEDS: traZODone HCL 50 MG TABLET (FP) PO SCH (21:18)
[2019-12-21] MEDS: MELATONIN 5 MG TABLETS PO PRN (21:18)
[2019-12-21] MEDS: THIAMINE HCL 100 MG TABLET (FP) PO SCH (21:19)
[2019-12-22] MEDS: hydrOXYzine PAMOATE 25 MG CAPSULE (FP) PO PRN ×2 (06:12→17:41)
[2019-12-22] MEDS: IBUPROFEN 400 MG TABLET (FP) PO PRN ×2 (06:12→21:21)
[2019-12-22] MEDS: PRENATAL VITAMINS W/ FOLIC ACID TABLET (FP) PO SCH (10:06)
[2019-12-22] MEDS: NICOTINE 21 MG/24 HOURS TOPICAL PATCH TD SCH (10:06)
[2019-12-22] MEDS: MELATONIN 5 MG TABLETS PO PRN (21:19)
[2019-12-22] MEDS: METHOCARBAMOL 500 MG TABLET PO PRN (21:19)
[2019-12-22] MEDS: traZODone HCL 50 MG TABLET (FP) PO SCH (21:19)
[2019-12-22] MEDS: THIAMINE HCL 100 MG TABLET (FP) PO SCH (21:20)
[2019-12-22] MEDS ORDERED: SUVOREXANT 10 MG TABLET PO PRN (22:00)
[2019-12-23 07:17] VITALS: TEMP 97.9
--- NOTE | 2019-12-23 10:13 | DS ---
[facility] Rehab Discharge Summary - [facility] Rehab Discharge Summary Admission Date: 12/13/19 Discharge Date: 12/23/19 - History Present History: Alcohol dependence, Opioid dependence, Sedative dependence Additional Comments: Pt is a 39 y/o male with a hx of ALLYSON admitted to rehab and requesting early discharge today for family reasons. Pt met with counselor and was referred to CD aftercare at [facility] on [address] [place] [address] for folow up. Pt reports he has primary care with Dr. Hakan Huang on [address] [place] [address] for medical management. 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 abdomen;soft,+bs,nt,nd extremities/skin:no edema;skin intact. Pertinent Admission Physical Exam Findings: Status medically unchanged S/P detox - Treatment Discharge Condition: Discharge condition good Hospital Course: Pt completed detox on and was referred to rehab here. Rehabilitated safely and responded well Cd aftercare referral accepted attended groups and individual sessions [facility] in rehab treatment. - Medication Discharge Medications: Ambulatory Orders Albuterol Sulfate Inhaler - [Ventolin HFA Inhaler -] 2 inh PO Q4H PRN #1 inhaler 08/27/18 traZODone HCL [Desyrel -] 150 mg PO HS 04/30/19 Naloxone HCl [Narcan] 4 mg NS ASDIR PRN #1 spray 12/12/19 Amlodipine Besylate 5 mg PO DAILY 12/17/19 Propranolol HCl 40 mg PO DAILY #30 tablet 12/23/19 Trazodone HCl 150 mg PO HS #30 tablet 12/23/19 - Medication-Assisted Treatment (MAT) Medication-Assisted Treatment (MAT): No - Discharge Instructions Diet, activity, other medical instructions: Diet:ROSEANN Activity: oob ad tha Other medical instructions:follow up with CD aftercare at [facility] as recommended. Follow up with your primary Care provider Dr. Huang within 1-2 weeks after discharge for medical management. - Diagnosis (1) Opioid use disorder Status: Chronic (2) Alcohol use disorder Status: Chronic (3) Cocaine dependence Status: Chronic Qualifiers: Substance use status: uncomplicated Qualified Code(s): F14.20 - Cocaine dependence, uncomplicated (4) Nicotine dependence Status: Chronic Qualifiers: Nicotine product type: cigarettes Substance use status: uncomplicated Qualified Code(s): F17.210 - Nicotine dependence, cigarettes, uncomplicated (5) Asthma Status: Chronic Qualifiers: Asthma severity: mild Asthma persistence: intermittent Asthma complication type: uncomplicated Qualified Code(s): J45.20 - Mild intermittent asthma, uncomplicated (6) Chronic lower back pain Status: Chronic Qualifiers: Back pain laterality: unspecified Sciatica presence: without sciatica Qualified Code(s): M54.5 - Low back pain; G89.29 - Other chronic pain (7) Hypertension Status: Chronic Qualifiers: Hypertension type: unspecified Qualified Code(s): I10 - Essential (primary) hypertension (8) History of seizure Status: Suspected - Follow-up Referral Minutes to complete discharge: 25 - AMA Did Patient Leave Against Medical Advice: No Additional Comments: [facility] Rx for Propranalol 40 mg po daily #30 days electronically sent to pt's [facility] for pickling grader. Pt reminded to call and make appointment for follow up after discharge with Dr. Hakan Huang for primary care management.
[2019-12-23] MEDS: NICOTINE 21 MG/24 HOURS TOPICAL PATCH TD SCH (10:32)
[2019-12-23] MEDS: PRENATAL VITAMINS W/ FOLIC ACID TABLET (FP) PO SCH (10:33)
--- NOTE | 2019-12-23 11:15 | PN ---
S Progress Note Note: Psychiatric nurse practitioner note: Patient discharged from rehab today. A 30 day supply of trazodone 150mg HS was electronically sent to [facility], [address] [place] [id number].
[2019-12-23 11:18] VITALS: BP 132/81; PULSE 91
== END 2019-12-23 11:30 | disposition home or self-care (01) | DRG 772 ==
LOC: YASAS 15:47 → Y5N 15:59
PROVIDERS: ADMIT Allergy & Immunology; ATTEND Allergy & Immunology
PROC: HZ42ZZZ Group Counseling for Substance Abuse Treatment, Cognitive-Behavioral (ICD-10-PCS; principal; 2019-12-13)
DX: F10.20 Alcohol dependence, uncomplicated (principal); F11.20 Opioid dependence, uncomplicated; F13.20 Sedative, hypnotic or anxiolytic dependence, uncomplicated; F17.210 Nicotine dependence, cigarettes, uncomplicated; F19.282 Other psychoactive substance dependence with psychoactive substance-induced sleep disorder; F19.24 Other psychoactive substance dependence with psychoactive substance-induced mood disorder; F41.8 Other specified anxiety disorders; F32.9 Major depressive disorder, single episode, unspecified; I10 Essential (primary) hypertension; J45.20 Mild intermittent asthma, uncomplicated; M54.5 Low back pain; G89.29 Other chronic pain; Z86.79 Personal history of other diseases of the circulatory system; Z86.69 Personal history of other diseases of the nervous system and sense organs; Z59.0 Homelessness

== ENCOUNTER 2020-07-05 13:45 | Inpatient (IN) | payer OTHER ==
--- NOTE | 2020-07-05 14:38 | BHS.RME ---
Substance Use & Tx History - Substance Use History Alcohol Substance amount: 1 pint vodka Frequency of use: Daily Substance route: Oral Date of Last Use: 07/04/20 (started age 13) Heroin Substance amount: 16 bags Frequency of use: Daily Substance route: Inhalation (ex: sniffing or snorting) Date of Last Use: 07/05/20 (started age 21) Klonopin Substance amount: 1mg - 4 tabs Frequency of use: Daily Substance route: Oral Date of Last Use: 07/04/20 (started age 27) Nicotine Substance amount: 1 pack Frequency of use: Daily Substance route: Smoking Date of Last Use: 07/05/20 - Last Treatment Date of last treatment: 12/13-12/17/19 then rehab not accepted because no insuran ce coverage for reha Treatment type: Substance Use Disorder (ALLYSON) Where was last treatment: Detox Physical/Psych/Mental Status - Behavior General Behavior: Increased activity (restlessness, agitation) Eye Contact: Normal - Cooperativeness Cooperativeness: Cooperative - Thinking Thought Processes: Tight, Logical, Goal Directed Thought content: Future oriented - Physical Health Problems Is patient presently having any pain?: No Does patient presently have any injuries (include location): No Does patient currently have a fever: No Is patient : No COWS - Scale Resting Pulse: 0= [place] 80 or Below Sweatin=Flushed/Facial Moisture Restless Observation: 1= Difficult to Sit Still Pupil Size: 1= Pupils >than Normal Bone or Joint Aches: 2= Severe Diffuse Aches Runny Nose/ Eye Tearin= Runny Nose/Eyes GI Upset > 30mins: 1= Stomach Cramp Tremor Observation: 1= Tremor [place], Not Seen Yawning Observation: 1= 1-2x During Session Anxiety or Irritability: 1=Feels Anxious/Irritable Goose Flesh Skin: 0=Smooth Skin COWS Score: 12 CIWA Nausea/Vomitin Muscle Tremors: 1-None Visible, but [place] Anxiety: 3 Agitation: 3 Paroxysmal Sweats: 3 Orientation: 1-Uncertain about Date Tacttile Disturbances: 0-None Auditory Disturbances: 0-None Visual Disturbances: 1-Very Mild Sensitivity Headache: 3-Moderate CIWA-Ar Total Score: 18
--- NOTE | 2020-07-05 15:55 | HP ---
COWS - Scale Resting Pulse: 0= [place] 80 or Below Sweatin=Flushed/Facial Moisture Restless Observation: 1= Difficult to Sit Still Pupil Size: 1= Pupils >than Normal Bone or Joint Aches: 2= Severe Diffuse Aches Runny Nose/ Eye Tearin= Runny Nose/Eyes GI Upset > 30mins: 1= Stomach Cramp Tremor Observation: 1= Tremor [place], Not Seen Yawning Observation: 1= 1-2x During Session Anxiety or Irritability: 1=Feels Anxious/Irritable Goose Flesh Skin: 0=Smooth Skin COWS Score: 12 CIWA Score Nausea/Vomitin Muscle Tremors: 1-None Visible, but [place] Anxiety: 3 Agitation: 3 Paroxysmal Sweats: 3 Orientation: 1-Uncertain about Date Tacttile Disturbances: 0-None Auditory Disturbances: 0-None Visual Disturbances: 1-Very Mild Sensitivity Headache: 3-Moderate CIWA-Ar Total Score: 18 - Admission Criteria [facility] Guidelines: Admission for Medically Managed Detox: Requires at least one of the followin. CIWA greater than 12 2. Seizures within the past 24 hours 3. Delirium tremens within the past 24 hours 4. Hallucinations within the past 24 hours 5. Acute intervention needed for co occurring medical disorder 6. Acute intervention needed for co occurring psychiatric disorder 7. Severe withdrawal that cannot be handled at a lower level of care (continued vomiting, continued diarrhea, abnormal vital signs) requiring intravenous medication and/or fluids 8. Admitting History and Physical - Smoking History Smoking history: Current every day smoker Have you smoked in the past 12 months: Yes Aproximately how many cigarettes per day: 20 - Alcohol/Substance Use Hx Alcohol Use: Yes Admission [facility] Chief Complaint: detox from alcohol and heroin Allergies/Adverse Reactions: Allergies Allergy/AdvReac Type Severity Reaction Status Date / Time No Known Allergies Allergy Verified 07/05/20 16:27 History of Present Illness: Patient is a 40 y/o male with a history of HTN and asthma who presents for detox from alcohol and heroin. Patient first started drinking at age 13, drinks 1 pint vodka a day and drinks everyday. 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 Was sober for 1 year after rehab. Last drank yesterday. patient also uses heroin, uses 16 bags a day and first started at age 21. Last used today. Denies ever overdosing. Patient uses klonopin. uses 2-4 tabs a day, first started at age 27 and last used yesterday. Patient smoked 1 pack per day, started smoking at age 14. Substance Use & Tx History - Substance Use History Alcohol Substance amount: 1 pint vodka Frequency of use: Daily Substance route: Oral Date of Last Use: 07/04/20 (started age 13) Heroin Substance amount: 16 bags Frequency of use: Daily Substance route: Inhalation (ex: sniffing or snorting) Date of Last Use: 07/05/20 (started age 21) Klonopin Substance amount: 1mg - 4 tabs Frequency of use: Daily Substance route: Oral Date of Last Use: 07/04/20 (started age 27) Nicotine Substance amount: 1 pack Frequency of use: Daily Substance route: Smoking Date of Last Use: 07/05/20 sghx: abd surgery at age 3 psych: anxiety social: homeless Patient is admitted for alcohol and opioid detox. - Review of Systems Constitutional: Other (denies fever or chills) EENT: denies: Blurred Vision, Double Vision Respiratory: denies: Cough, Shortness of Breath, Wheezing Cardiac: reports: Chest Pain, Chest Tightness GI: denies: Constipated, Diarrhea, Nausea, Vomiting : denies: Burning Musculoskeletal: reports: Back Pain, Muscle Pain Integumentary: denies: Bruising Neuro: denies: Headache, Numbness, Tingling, Dizziness Endocrine: denies: Change in Weight Hematology: denies: Easy Bleeding Psychiatric: reports: Anxious, Depressed. denies: Agitated Patient History - Patient Medical History Hx Anemia: No Hx Asthma: Yes Hx Chronic Obstructive Pulmonary Disease (COPD): No Hx Cancer: No Hx Cardiac Disorders: No Hx Congestive Heart Failure: No Hx Hypertension: Yes Hx Hypercholesterolemia: No Hx Pacemaker: No HX Cerebrovascular Accident: No Hx Seizures: No Hx Dementia: No Hx Diabetes: No Hx Gastrointestinal Disorders: No Hx Liver Disease: No Hx Genitourinary Disorders: No Hx Sexually Transmitted Disorders: No Hx Renal Disease (ESRD): No Hx Thyroid Disease: No Hx Human Immunodeficiency Virus (HIV): No Hx Hepatitis C: No Hx Depression: Yes Hx Suicide Attempt: No Hx Bipolar Disorder: No Hx Schizophrenia: No - Patient Surgical History Past Surgical History: Yes Hx Neurologic Surgery: No Hx Cataract Extraction: No Hx Cardiac Surgery: No Hx Lung Surgery: No Hx Breast Surgery: No Hx Breast Biopsy: No Hx Abdominal Surgery: Yes (at age 3) Hx Appendectomy: No Hx Cholecystectomy: No Hx Genitourinary Surgery: No Hx Section: No Hx Orthopedic Surgery: No Anesthesia Reaction: No - PPD History Date: 09/10/19 Results: 0 mm - Smoking Cessation Smoking history: Current every day smoker Have you smoked in the past 12 months: Yes Aproximately how many cigarettes per day: 20 Cigars Per Day: 0 Hx Chewing Tobacco Use: No Initiated information on smoking cessation: No - Substance & Tx. History Hx Alcohol Use: Yes Substance Use Type: Heroin - Substances abused Heroin Substance route: Inhalation Frequency: Daily Amount used: 16 bags Age of first use: 14 Date of last use: 07/04/20 Alcohol Substance route: Oral Frequency: Daily Amount used: 1 pint of vodka Age of first use: 14 Date of last use: 07/04/20 Admission Physical Exam [facility] - Physical General Appearance: Yes: Within Normal Limits, Nourished HEENTM: Yes: EOMI, Hearing grossly Normal Respiratory: Yes: Within Normal Limits, Normal Breath Sounds, No Accessory Muscle Use Neck: Yes: Within Normal Limits Cardiology: Yes: Regular Rhythm, Regular Rate, S1, S2 Abdominal: Yes: Non Tender, Soft Back: Yes: Within Normal Limits, Normal Inspection Musculoskeletal: Yes: full range of Motion Extremities: Yes: Normal Inspection, Non-Tender. No: Pedal Edema Neurological: Yes: Fully Oriented, Normal Response Integumentary: Yes: Normal Color, Dry - Diagnostic (1) Alcohol dependence with withdrawal Current Visit: No Status: Acute Qualifiers: Complication of substance-induced condition: uncomplicated Qualified Code(s): F10.230 - Alcohol dependence with withdrawal, uncomplicated (2) Benzodiazepine withdrawal without complication Current Visit: No Status: Acute (3) Opioid dependence with withdrawal Current Visit: No Status: Acute (4) Anxiety Current Visit: No Status: Chronic (5) Asthma Current Visit: No Status: Chronic Qualifiers: Asthma severity: mild Asthma persistence: intermittent Asthma complication type: uncomplicated Qualified Code(s): J45.20 - Mild intermittent asthma, uncomplicated (6) Hypertension Current Visit: No Status: Chronic Qualifiers: Hypertension type: unspecified Qualified Code(s): I10 - Essential (primary) hypertension Cleared for Admission [facility] - Detox or Rehab [facility] Level of Care: Medically Managed Detox Regimen/Protocol: Methadone/Librium Breathalyzer - Breathalyzer Breathalyzer: 0 Vital Signs - Vital Signs Vital signs refused: No Temperature: 97.7 F Pulse Rate: 79 Respiratory Rate: 14 Blood Pressure: 108/75 - Height Height: 5 ft 6 in - Weight Weight: 83.007 kg - BMI Body Mass Index (BMI): 29.5 Urine Drug Screen - Test Device Lot number: [id number] Expiration date: 01/25/22 - Control Is test valid?: Yes - Results Drug screen NEGATIVE: No Urine drug screen results: TOBY-Cocaine, FEN-Fentanyl Inpatient Rehab Admission - Rehab Decision to Admit Inpatient rehab admission?: No
[2020-07-05 16:02] VITALS: BMI 29.5
[2020-07-05] MEDS ORDERED: NICOTINE POLACRILEX 2 MG GUM BUC PRN (16:04)
[2020-07-05] MEDS ORDERED: METHADONE HCL 10 MG TABLET (FOR DETOX USE ONLY) PO ONE (16:04)
[2020-07-05] MEDS ORDERED: MENTHOL/PHENOL 1 EACH UD MM PRN (16:04)
[2020-07-05] MEDS ORDERED: ONDANSETRON *ODT* 4 MG TABLET SL PRN (16:04)
[2020-07-05] MEDS ORDERED: MAGNESIUM CITRATE 300 ML BOTTLE PO PRN (16:04)
[2020-07-05] MEDS ORDERED: ACETAMINOPHEN 325 MG TABLET (FP) PO PRN ×2 (16:04)
[2020-07-05] MEDS ORDERED: cloNIDine HCL 0.1 MG TABLET PO PRN (16:04)
[2020-07-05] MEDS ORDERED: METHOCARBAMOL 500 MG TABLET PO PRN (16:04)
[2020-07-05] MEDS ORDERED: BISMUTH SUBSALICYLATE 524 MG/30 ML UD PO PRN (16:04)
[2020-07-05] MEDS ORDERED: IBUPROFEN 400 MG TABLET (FP) PO PRN (16:04)
[2020-07-05] MEDS ORDERED: chlordiazePOXIDE HCL 25 MG CAPSULE PO PRN (16:04)
[2020-07-05] MEDS ORDERED: MAG HYDROX/AL HYDROX/SIMETH 30 ML UNIT-DOSE CUP PO PRN (16:04)
[2020-07-05] MEDS ORDERED: MAGNESIUM HYDROX 2400MG/30ML ORAL SUSPENSION 30 ML CUP PO PRN (16:04)
[2020-07-05] MEDS: PRENATAL VITAMINS W/ FOLIC ACID TABLET (FP) PO SCH (18:02)
[2020-07-05] MEDS: chlordiazePOXIDE HCL 25 MG CAPSULE PO SCH ×2 (18:02→22:28)
[2020-07-05] MEDS: NICOTINE 21 MG/24 HOURS TOPICAL PATCH TD SCH (18:02)
[2020-07-05] MEDS: hydrOXYzine PAMOATE 25 MG CAPSULE (FP) PO SCH ×2 (18:02→22:28)
[2020-07-05] MEDS ORDERED: MELATONIN 5 MG TABLETS PO SCH (22:00)
[2020-07-05] MEDS: THIAMINE HCL 100 MG TABLET (FP) PO SCH (22:28)
[2020-07-06] MEDS: chlordiazePOXIDE HCL 25 MG CAPSULE PO SCH ×4 (05:25→22:12)
[2020-07-06] MEDS: hydrOXYzine PAMOATE 25 MG CAPSULE (FP) PO SCH ×5 (05:25→22:12)
[2020-07-06] MEDS ORDERED: METHADONE HCL 10 MG TABLET (FOR DETOX USE ONLY) ONE (08:40)
[2020-07-06] MEDS ORDERED: METHADONE HCL 5 MG TABLET (FOR DETOX USE ONLY) ONE (08:40)
--- NOTE | 2020-07-06 09:54 | EKG ---
Test Reason : Blood Pressure : / mmHG Vent. Rate : 060 BPM Atrial Rate : 060 BPM P-R Int : 140 ms QRS Dur : 090 ms QT Int : 430 ms P-R-T Axes : 055 051 044 degrees QTc Int : 430 ms NORMAL SINUS RHYTHM NORMAL ECG WHEN COMPARED WITH ECG OF 12-AUG-2018 18:48, NO SIGNIFICANT CHANGE WAS FOUND Confirmed by DIYA WALSH MD ([id number]) on 07/06/2020 9:54:06 AM Referred By: Confirmed By:DIYA WALSH MD
[2020-07-06] MEDS ORDERED: METHADONE (DETOX) 20 MG, METHADONE (DETOX) 5 MG PO ONE (10:00)
[2020-07-06] MEDS: PRENATAL VITAMINS W/ FOLIC ACID TABLET (FP) PO SCH (10:19)
[2020-07-06] MEDS: NICOTINE 21 MG/24 HOURS TOPICAL PATCH TD SCH (10:19)
[2020-07-06 11:03] LABS: ALBUMIN 3.2 g/dl (3.4-5.0); BILIRUBIN,TOTAL 0.6 mg/dL (0.2-1); BLOOD UREA NITROGEN 8.8 mg/dL (7-18); CALCIUM 8.7 mg/dL (8.5-10.1); CREATININE 0.7 mg/dL (0.55-1.3); POTASSIUM 4.6 mmol/L (3.5-5.1); TOT PROT 6.3 g/dl (6.4-8.2)
--- NOTE | 2020-07-06 11:11 | CONSULT ---
[facility] Psychiatric Consult - Data Date of interview: 07/06/20 Admission source: [facility] Identifying data: Patient is a 40 year old single male, without children, unemployed, homeless, and is not currently supported with [facility]. This is one of multiple admissions for patient. Patient admitted to alcohol and opiate dependence. Substance Abuse History: Substance Use History. Alcohol. Substance amount: 1 pint vodka. Frequency of use: Daily. Substance route: Oral. Date of Last Use: 07/04/20 (started age 13). Heroin. Substance amount: 16 bags. Frequency of use: Daily. Substance route: Inhalation (ex: sniffing or snorting). Date of Last Use: 07/05/20 (started age 21). Klonopin. Substance amount: 1mg - 4 tabs. Frequency of use: Daily. Substance route: Oral. Date of Last Use: 07/04/20 (started age 27). Nicotine. Substance amount: 1 pack. Frequency of use: Daily. Substance route: Smoking. Date of Last Use: 07/05/20 Medical History: Asthma, hypertension, Abdominal Surgery (age 3) Psychiatric History: Mr. Penn denies history of psychiatric hospitalizations, and suicide attempt. He reports a history of outpatient psychiatric care in [place], [place]. States he he last saw a psychiatrist 1.5 years ago and was prescribed trazodone 150mg and klonopin 1mg BID. Mr. Penn was then receiving trazodone 150mg HS from his primary care physican but due to identify theft st ate that he has has not received trazodone from his primary care physican in some time. He reports currently taking his father's trazdone medication to address his insomnia. At present, Mr. Penn reports difficulty sleeping. Physical/Sexual Abuse/Trauma History: denies. Mental Status Exam - Mental Status Exam Alert and Oriented to: Time, Place, Person Cognitive Function: Good Patient Appearance: Well Groomed Mood: Withdrawn Affect: Mood Congruent Patient Behavior: Appropriate, Cooperative Speech Pattern: Appropriate Voice Loudness: Normal Thought Process: Goal Oriented Thought Disorder: Not Present Hallucinations: Denies Suicidal Ideation: Denies Homicidal Ideation: Denies Insight/Judgement: Poor Sleep: Poorly Appetite: Fair Muscle strength/Tone: Normal Gait/Station: Normal Psychiatric Findings - Problem List ([place] 1, 2,3) (1) Alcohol dependence with withdrawal Status: Acute Qualifiers: Complication of substance-induced condition: uncomplicated Qualified Code(s): F10.230 - Alcohol dependence with withdrawal, uncomplicated (2) Benzodiazepine withdrawal without complication Status: Acute (3) Opioid dependence with withdrawal Status: Acute (4) Substance-induced sleep disorder Status: Acute - Initial Treatment Plan Initial Treatment Plan: Psychoeducation provided. Detoxification in progress. Will order Trazodone 100mg HS + Melatonin 10mg HS. Benefits and side effects discussed. Verbal consent given.
[2020-07-06 11:13] LABS: HEMATOCRIT 38.4 % (35.4-49); HEMOGLOBIN 12.8 GM/dL (11.7-16.9); MCHC 33.2 g/dl (32.0-35.9); MEAN CELL VOLUME 90.4 fl (80-96); MEAN PLT VOLUME 9.8 fl (7.5-11.1); PLATELET COUNT 238 K/MM3 (134-434); RBC 4.25 M/mm3 (4.00-5.60); WHITE BLOOD COUNT 8.3 K/mm3 (4.0-10.0)
--- NOTE | 2020-07-06 11:54 | PN ---
S CIWA - CIWA Score Nausea/Vomitin-Mild Nausea/No Vomiting Muscle Tremors: 3 Anxiety: 2 Agitation: 2 Paroxysmal Sweats: No Perspiration Orientation: 0-Oriented Tacttile Disturbances: 1-Very Mild Itch/Numbness Auditory Disturbances: 0-None Visual Disturbances: 0-None Headache: 2-Mild CIWA-Ar Total Score: 11 BHS COWS - Scale Resting Pulse: 1= [place] 81-100 Sweatin= No chills or Flushing Restless Observation: 0= Sits Still Pupil Size: 1= Pupils >than Normal Bone or Joint Aches: 2= Severe Diffuse Aches Runny Nose/ Eye Tearin= Nasal Congestion GI Upset > 30mins: 2= Nausea/Diarrhea Tremor Observation of Outstretched Hands: 2= Slight Tremor Visible Yawning Observation: 1= 1-2x During Session Anxiety or Irritability: 2=Irritable/Anxious Goose Flesh Skin: 0=Smooth Skin COWS Score: 12 S Progress Note (SOAP) Subjective: alert,irritable,anxious,interrupted sleep,tremor,pain in the body and back aching pain,nausea Objective: 07/06/20 15:11 Vital Signs Temperature 97.3 F L 07/06/20 12:35 Pulse Rate 79 07/06/20 12:35 Respiratory Rate 18 07/06/20 12:35 Blood Pressure 132/86 07/06/20 12:35 O2 Sat by Pulse Oximetry (%) 100 07/06/20 12:35 07/06/20 15:12 Laboratory Last Values WBC 8.3 K/mm3 (4.0-10.0) 07/06/20 08:00 RBC 4.25 M/mm3 (4.00-5.60) 07/06/20 08:00 Hgb 12.8 GM/dL (11.7-16.9) 07/06/20 08:00 Hct 38.4 % (35.4-49) 07/06/20 08:00 MCV 90.4 fl (80-96) 07/06/20 08:00 MCH 30.0 pg (25.7-33.7) 07/06/20 08:00 MCHC 33.2 g/dl (32.0-35.9) 07/06/20 08:00 RDW 14.0 % (11.9-15.9) 07/06/20 08:00 Plt Count 238 K/MM3 (134-434) 07/06/20 08:00 MPV 9.8 fl (7.5-11.1) 07/06/20 08:00 Sodium 141 mmol/L (136-145) 07/06/20 08:00 Potassium 4.6 mmol/L (3.5-5.1) 07/06/20 08:00 Chloride 105 mmol/L (98-107) 07/06/20 08:00 Carbon Dioxide 34 mmol/L (21-32) H 07/06/20 08:00 Anion Gap 2 MMOL/L (8-16) L 07/06/20 08:00 BUN 8.8 mg/dL (7-18) 07/06/20 08:00 Creatinine 0.7 mg/dL (0.55-1.3) 07/06/20 08:00 Est GFR (CKD-EPI)AfAm 135.86 07/06/20 08:00 Est GFR (CKD-EPI)NonAf 117.22 07/06/20 08:00 Random Glucose 84 mg/dL (74-106) 07/06/20 08:00 Calcium 8.7 mg/dL (8.5-10.1) 07/06/20 08:00 Total Bilirubin 0.6 mg/dL (0.2-1) 07/06/20 08:00 AST 18 U/L (15-37) 07/06/20 08:00 ALT 20 U/L (13-61) 07/06/20 08:00 Alkaline Phosphatase 89 U/L (45-117) 07/06/20 08:00 Total Protein 6.3 g/dl (6.4-8.2) L 07/06/20 08:00 Albumin 3.2 g/dl (3.4-5.0) L 07/06/20 08:00 Syphilis Serology Non-reactive (NONREACTIVE) 07/06/20 08:00 Assessment: 07/06/20 15:13 withdrawal symptom Plan: continue detox methadone and librium regimen
[2020-07-06] MEDS: MELATONIN 5 MG TABLETS PO SCH (22:12)
[2020-07-06] MEDS: traZODone HCL 100 MG TABLET (FP) PO SCH (22:12)
[2020-07-06] MEDS: THIAMINE HCL 100 MG TABLET (FP) PO SCH (22:12)
[2020-07-07] MEDS: chlordiazePOXIDE HCL 25 MG CAPSULE PO SCH ×4 (05:47→22:19)
[2020-07-07] MEDS: hydrOXYzine PAMOATE 25 MG CAPSULE (FP) PO SCH ×5 (05:47→21:32)
--- NOTE | 2020-07-07 09:48 | PN ---
S CIWA - CIWA Score Nausea/Vomitin Muscle Tremors: 2 Anxiety: 2 Agitation: 2 Paroxysmal Sweats: No Perspiration Orientation: 0-Oriented Tacttile Disturbances: 0-None Auditory Disturbances: 0-None Visual Disturbances: 0-None Headache: 1-Very Mild CIWA-Ar Total Score: 9 BHS COWS - Scale Resting Pulse: 0= [place] 80 or Below Sweatin= No chills or Flushing Restless Observation: 0= Sits Still Pupil Size: 0= Normal to Room Light Bone or Joint Aches: 1= Mild Discomfort Runny Nose/ Eye Tearin= Nasal Congestion GI Upset > 30mins: 1= Stomach Cramp Tremor Observation of Outstretched Hands: 1= Tremor [place], Not Seen Yawning Observation: 1= 1-2x During Session Anxiety or Irritability: 2=Irritable/Anxious Goose Flesh Skin: 0=Smooth Skin COWS Score: 7 S Progress Note (SOAP) Subjective: alert,irritable,anxious,interrupted sleep,aching pain Objective: 07/07/20 15:06 Vital Signs Temperature 98.9 F 07/07/20 12:38 Pulse Rate 75 07/07/20 12:38 Respiratory Rate 18 07/07/20 12:38 Blood Pressure 133/95 07/07/20 12:38 O2 Sat by Pulse Oximetry (%) 99 07/07/20 12:38 Assessment: 07/07/20 15:06 withdrawal signs and symptom Plan: continue detox methadone and libium regimen
[2020-07-07] MEDS ORDERED: METHADONE HCL 10 MG TABLET (FOR DETOX USE ONLY) PO ONE (10:00)
[2020-07-07] MEDS: PRENATAL VITAMINS W/ FOLIC ACID TABLET (FP) PO SCH (10:05)
[2020-07-07] MEDS: NICOTINE 21 MG/24 HOURS TOPICAL PATCH TD SCH (10:06)
[2020-07-07] MEDS: THIAMINE HCL 100 MG TABLET (FP) PO SCH (21:32)
[2020-07-07] MEDS: traZODone HCL 100 MG TABLET (FP) PO SCH (21:32)
[2020-07-07] MEDS: MELATONIN 5 MG TABLETS PO SCH (21:32)
[2020-07-08] MEDS ORDERED: chlordiazePOXIDE HCL 10 MG CAPSULE PO PRN
[2020-07-08] MEDS: chlordiazePOXIDE HCL 10 MG CAPSULE PO SCH ×4 (05:09→22:18)
[2020-07-08] MEDS: hydrOXYzine PAMOATE 25 MG CAPSULE (FP) PO SCH ×5 (05:09→22:18)
[2020-07-08] MEDS ORDERED: METHADONE HCL 10 MG TABLET (FOR DETOX USE ONLY) ONE (08:37)
[2020-07-08] MEDS ORDERED: METHADONE HCL 5 MG TABLET (FOR DETOX USE ONLY) ONE (08:37)
[2020-07-08] MEDS ORDERED: METHADONE (DETOX) 10 MG, METHADONE (DETOX) 5 MG PO ONE (10:00)
--- NOTE | 2020-07-08 10:01 | PN ---
S CIWA - CIWA Score Nausea/Vomitin-No Nausea/No Vomiting Muscle Tremors: None Anxiety: 2 Agitation: 0-Normal Activity Paroxysmal Sweats: 2 Orientation: 0-Oriented Tacttile Disturbances: 0-None Auditory Disturbances: 0-None Visual Disturbances: 0-None Headache: 2-Mild CIWA-Ar Total Score: 6 BHS COWS - Scale Resting Pulse: 1= [place] 81-100 Sweatin= No chills or Flushing Restless Observation: 1= Difficult to Sit Still Pupil Size: 0= Normal to Room Light Bone or Joint Aches: 2= Severe Diffuse Aches Runny Nose/ Eye Tearin= None GI Upset > 30mins: 0= None Tremor Observation of Outstretched Hands: 0= None Yawning Observation: 0= None Anxiety or Irritability: 2=Irritable/Anxious Goose Flesh Skin: 0=Smooth Skin COWS Score: 6 S Progress Note (SOAP) Subjective: c/o muscle aches, sweats, anxiety, and irritability. Objective: 07/08/20 10:00 Vital Signs 07/08/20 07/08/20 06:25 09:00 Temperature 97.7 F 97.7 F Pulse Rate 74 81 Respiratory 18 18 Rate Blood Pressure 128/78 140/105 H O2 Sat by Pulse 97 Oximetry (%) Laboratory Last Values WBC 8.3 K/mm3 (4.0-10.0) 07/06/20 08:00 RBC 4.25 M/mm3 (4.00-5.60) 07/06/20 08:00 Hgb 12.8 GM/dL (11.7-16.9) 07/06/20 08:00 Hct 38.4 % (35.4-49) 07/06/20 08:00 MCV 90.4 fl (80-96) 07/06/20 08:00 MCH 30.0 pg (25.7-33.7) 07/06/20 08:00 MCHC 33.2 g/dl (32.0-35.9) 07/06/20 08:00 RDW 14.0 % (11.9-15.9) 07/06/20 08:00 Plt Count 238 K/MM3 (134-434) 07/06/20 08:00 MPV 9.8 fl (7.5-11.1) 07/06/20 08:00 Sodium 141 mmol/L (136-145) 07/06/20 08:00 Potassium 4.6 mmol/L (3.5-5.1) 07/06/20 08:00 Chloride 105 mmol/L (98-107) 07/06/20 08:00 Carbon Dioxide 34 mmol/L (21-32) H 07/06/20 08:00 Anion Gap 2 MMOL/L (8-16) L 07/06/20 08:00 BUN 8.8 mg/dL (7-18) 07/06/20 08:00 Creatinine 0.7 mg/dL (0.55-1.3) 07/06/20 08:00 Est GFR (CKD-EPI)AfAm 135.86 07/06/20 08:00 Est GFR (CKD-EPI)NonAf 117.22 07/06/20 08:00 Random Glucose 84 mg/dL (74-106) 07/06/20 08:00 Calcium 8.7 mg/dL (8.5-10.1) 07/06/20 08:00 Total Bilirubin 0.6 mg/dL (0.2-1) 07/06/20 08:00 AST 18 U/L (15-37) 07/06/20 08:00 ALT 20 U/L (13-61) 07/06/20 08:00 Alkaline Phosphatase 89 U/L (45-117) 07/06/20 08:00 Total Protein 6.3 g/dl (6.4-8.2) L 07/06/20 08:00 Albumin 3.2 g/dl (3.4-5.0) L 07/06/20 08:00 Syphilis Serology Non-reactive (NONREACTIVE) 07/06/20 08:00 COVID-19 (VAL) Not detected (Not Detected) 07/05/20 16:50 Labs noted. Assessment: 07/08/20 10:00 AOX3, in no acute respiratory distress. Full ROM, ambulating in the unit. Withdrawal symptoms. Plan: continue detox.
[2020-07-08] MEDS: PRENATAL VITAMINS W/ FOLIC ACID TABLET (FP) PO SCH (10:11)
[2020-07-08] MEDS: NICOTINE 21 MG/24 HOURS TOPICAL PATCH TD SCH (10:12)
[2020-07-08] MEDS: MELATONIN 5 MG TABLETS PO SCH (22:18)
[2020-07-08] MEDS: traZODone HCL 100 MG TABLET (FP) PO SCH (22:18)
[2020-07-08] MEDS: THIAMINE HCL 100 MG TABLET (FP) PO SCH (22:18)
[2020-07-09] MEDS: chlordiazePOXIDE HCL 10 MG CAPSULE PO SCH ×2 (05:46→17:24)
[2020-07-09] MEDS: hydrOXYzine PAMOATE 25 MG CAPSULE (FP) PO SCH ×5 (05:47→22:09)
[2020-07-09] MEDS ORDERED: METHADONE HCL 10 MG TABLET (FOR DETOX USE ONLY) PO ONE (10:00)
[2020-07-09] MEDS: NICOTINE 21 MG/24 HOURS TOPICAL PATCH TD SCH (10:26)
[2020-07-09] MEDS: PRENATAL VITAMINS W/ FOLIC ACID TABLET (FP) PO SCH (10:26)
--- NOTE | 2020-07-09 11:47 | PN ---
[facility] CIWA - CIWA Score Nausea/Vomitin-No Nausea/No Vomiting Muscle Tremors: 1-None Visible, but [place] Anxiety: 1-Mildly Anxious Agitation: 0-Normal Activity Paroxysmal Sweats: No Perspiration Orientation: 0-Oriented Tacttile Disturbances: 0-None Auditory Disturbances: 0-None Visual Disturbances: 0-None Headache: 1-Very Mild CIWA-Ar Total Score: 3 S COWS - Scale Resting Pulse: 1= [place] 81-100 Sweatin= No chills or Flushing Restless Observation: 0= Sits Still Pupil Size: 0= Normal to Room Light Bone or Joint Aches: 1= Mild Discomfort Runny Nose/ Eye Tearin= None GI Upset > 30mins: 0= None Tremor Observation of Outstretched Hands: 0= None Yawning Observation: 0= None Anxiety or Irritability: 1=Feels Anxious/Irritable Goose Flesh Skin: 0=Smooth Skin COWS Score: 3 S Progress Note (SOAP) Subjective: 40 years old male was admitted on 07/05/20 for alcohol benzo opiate withdrawal sx mangement treating with librium and methadone detox regiments feels better today anticipatory anxiety "my heart is bad every time goes to rehab" health teaching on alcohol benzo opiate abuse related cardiac insults I goes to the emergency room after detex encourage mr yap utilize community health services for asthma and hypertension management Objective: 07/09/20 11:47 Vital Signs - 24 hr 07/08/20 07/08/20 07/08/20 12:45 16:36 20:38 Temperature 98.2 F 98.4 F 97.3 F L Pulse Rate 95 H 77 80 Respiratory 20 18 16 Rate Blood Pressure 125/75 132/90 129/83 O2 Sat by Pulse 98 100 Oximetry (%) 07/09/20 07/09/20 06:12 08:33 Temperature 97.7 F 97.1 F L Pulse Rate 89 83 Respiratory 18 18 Rate Blood Pressure 102/69 126/89 O2 Sat by Pulse 97 Oximetry (%) Laboratory Tests 07/05/20 07/06/20 07/06/20 16:50 08:00 08:00 WBC 8.3 RBC 4.25 Hgb 12.8 Hct 38.4 MCV 90.4 MCH 30.0 MCHC 33.2 RDW 14.0 Plt Count 238 MPV 9.8 Sodium Potassium Chloride Carbon Dioxide Anion Gap BUN Creatinine Est GFR (CKD-EPI)AfAm Est GFR (CKD-EPI)NonAf Random Glucose Calcium Total Bilirubin AST ALT Alkaline Phosphatase Total Protein Albumin Syphilis Serology Non-reactive COVID-19 (VAL) Not detected 07/06/20 08:00 WBC RBC Hgb Hct MCV MCH MCHC RDW Plt Count MPV Sodium 141 Potassium 4.6 Chloride 105 Carbon Dioxide 34 H Anion Gap 2 L BUN 8.8 Creatinine 0.7 Est GFR (CKD-EPI)AfAm 135.86 Est GFR (CKD-EPI)NonAf 117.22 Random Glucose 84 Calcium 8.7 Total Bilirubin 0.6 AST 18 ALT 20 Alkaline Phosphatase 89 Total Protein 6.3 L Albumin 3.2 L Syphilis Serology COVID-19 (VAL) lab noted Assessment: 07/09/20 11:48 alcohol benzo opiate withdrawal Plan: librium and methadone regiments
[2020-07-09] MEDS: traZODone HCL 100 MG TABLET (FP) PO SCH (22:09)
[2020-07-09] MEDS: MELATONIN 5 MG TABLETS PO SCH (22:09)
[2020-07-09] MEDS: THIAMINE HCL 100 MG TABLET (FP) PO SCH (22:09)
[2020-07-10] MEDS ORDERED: chlordiazePOXIDE HCL 10 MG CAPSULE PO ONE (05:00)
[2020-07-10] MEDS: hydrOXYzine PAMOATE 25 MG CAPSULE (FP) PO SCH (05:19)
[2020-07-10] MEDS ORDERED: METHADONE HCL 5 MG TABLET (FOR DETOX USE ONLY) PO ONE (06:00)
[2020-07-10 06:19] VITALS: BP 115/80; PULSE 79; TEMP 97.7
--- NOTE | 2020-07-10 09:20 | DS ---
[facility] Detox Discharge Summary Admission Date: 07/05/20 Discharge Date: 07/10/20 - History Present History: Alcohol Dependence, Opioid Dependence, Sedative Dependence Additional Comments: 40 years old male was admitted on 07/05/20 for alcohol benzo opiate withdrawal sx management treated with librium and methadone regiments seen by psychiatrist resume trazodone and melatonin mr yap has completed the librium and methadone regiment and is tolerated well General Appearance: Yes: Within Normal Limits, Nourished HEENTM: Yes: EOMI, Hearing grossly Normal Respiratory: Yes: Within Normal Limits, Normal Breath Sounds, No Accessory Muscle Use Neck: Yes: Within Normal Limits Cardiology: Yes: Regular Rhythm, Regular Rate, S1, S2 Abdominal: Yes: Non Tender, Soft Back: Yes: Within Normal Limits, Normal Inspection Musculoskeletal: Yes: full range of Motion Extremities: Yes: Normal Inspection, Non-Tender. No: Pedal Edema Neurological: Yes: Fully Oriented, Normal Response Integumentary: Yes: Normal Color, Dry Pertinent Past History: time for discharge 35 minutes encourage mr yap to merchandise pickup/receiving associate narcan from pharmacy and consider medication assisted treatment program - Physical Exam Results Vital Signs: Vital Signs Temperature 97.7 F 07/10/20 05:25 Pulse Rate 79 07/10/20 05:25 Respiratory Rate 18 07/10/20 05:25 Blood Pressure 115/80 07/10/20 05:25 O2 Sat by Pulse Oximetry (%) 96 07/10/20 05:25 Pertinent Admission Physical Exam Findings: alcohol benzo opiate withdrawal Vital Signs - 24 hr 07/09/20 07/09/20 07/09/20 12:34 16:43 20:41 Temperature 97.7 F 98.2 F 97.3 F L Pulse Rate 77 81 87 Respiratory 18 18 18 Rate Blood Pressure 120/85 128/79 122/83 O2 Sat by Pulse 100 100 Oximetry (%) 07/10/20 05:25 Temperature 97.7 F Pulse Rate 79 Respiratory 18 Rate Blood Pressure 115/80 O2 Sat by Pulse 96 Oximetry (%) Laboratory Tests 07/05/20 07/06/20 07/06/20 16:50 08:00 08:00 WBC 8.3 RBC 4.25 Hgb 12.8 Hct 38.4 MCV 90.4 MCH 30.0 MCHC 33.2 RDW 14.0 Plt Count 238 MPV 9.8 Sodium Potassium Chloride Carbon Dioxide Anion Gap BUN Creatinine Est GFR (CKD-EPI)AfAm Est GFR (CKD-EPI)NonAf Random Glucose Calcium Total Bilirubin AST ALT Alkaline Phosphatase Total Protein Albumin Syphilis Serology Non-reactive COVID-19 (VAL) Not detected 07/06/20 08:00 WBC RBC Hgb Hct MCV MCH MCHC RDW Plt Count MPV Sodium 141 Potassium 4.6 Chloride 105 Carbon Dioxide 34 H Anion Gap 2 L BUN 8.8 Creatinine 0.7 Est GFR (CKD-EPI)AfAm 135.86 Est GFR (CKD-EPI)NonAf 117.22 Random Glucose 84 Calcium 8.7 Total Bilirubin 0.6 AST 18 ALT 20 Alkaline Phosphatase 89 Total Protein 6.3 L Albumin 3.2 L Syphilis Serology COVID-19 (VAL) lab noted - Treatment Hospital Course: Detox Protocol Followed, Detoxed Safely, Responded well, Discharged Condition Good, Rehab Referral Accepted Patient has Accepted a Rehab Referral to: [facility] - Medication Discharge Medications: Ambulatory Orders Albuterol Sulfate Inhaler - [Ventolin HFA Inhaler -] 2 inh PO Q4H PRN #1 inhaler 08/27/18 traZODone HCL [Desyrel -] 150 mg PO HS 04/30/19 Naloxone HCl [Narcan] 4 mg NS ASDIR PRN #1 spray 12/12/19 Amlodipine Besylate 5 mg PO DAILY 12/17/19 Propranolol HCl 40 mg PO DAILY #30 tablet 12/23/19 Trazodone HCl 150 mg PO HS #30 tablet 12/23/19 - Diagnosis (1) Alcohol dependence with withdrawal Current Visit: Yes Status: Acute Qualifiers: Complication of substance-induced condition: uncomplicated Qualified Code(s): F10.230 - Alcohol dependence with withdrawal, uncomplicated (2) Benzodiazepine withdrawal without complication Current Visit: Yes Status: Acute (3) Opioid dependence with withdrawal Current Visit: Yes Status: Acute (4) Substance induced mood disorder Current Visit: Yes Status: Suspected (5) Asthma Current Visit: Yes Status: Chronic Qualifiers: Asthma severity: mild Asthma persistence: intermittent Asthma complication type: uncomplicated Qualified Code(s): J45.20 - Mild intermittent asthma, uncomplicated (6) Hypertension Current Visit: Yes Status: Chronic Qualifiers: Hypertension type: unspecified Qualified Code(s): I10 - Essential (primary) hypertension (7) Nicotine dependence Current Visit: Yes Status: Acute Qualifiers: Nicotine product type: cigarettes Substance use status: in withdrawal Qualified Code(s): F17.213 - Nicotine dependence, cigarettes, with withdrawal (8) Substance induced mood disorder Current Visit: Yes Status: Suspected - AMA Did Patient Leave Against Medical Advice: No CIWA Score - CIWA Score Nausea/Vomitin-No Nausea/No Vomiting Muscle Tremors: 1-None Visible, but [place] Anxiety: 1-Mildly Anxious Agitation: 0-Normal Activity Paroxysmal Sweats: No Perspiration Orientation: 0-Oriented Tacttile Disturbances: 0-None Auditory Disturbances: 0-None Visual Disturbances: 0-None Headache: 0-None Present CIWA-Ar Total Score: 2 COWS (PN) - Opiate Withdrawal Resting Pulse: 0= [place] 80 or Below Sweatin= No chills or Flushing Restless Observation: 0= Sits Still Pupil Size: 0= Normal to Room Light Bone or Joint Aches: 0= None Runny Nose/ Eye Tearin= None GI Upset > 30mins: 0= None Tremor Observation of Outstretched Hands: 1= Tremor [place], Not Seen Yawning Observation: 0= None Anxiety or Irritability: 1=Feels Anxious/Irritable Goose Flesh Skin: 0=Smooth Skin COWS Score: 2
== END 2020-07-10 09:26 | disposition home or self-care (01) | DRG 773 ==
LOC: YASAS 13:45 → Y3N 16:38
PROVIDERS: ADMIT Allergy & Immunology; ATTEND Allergy & Immunology
PROC: HZ2ZZZZ Detoxification Services for Substance Abuse Treatment (ICD-10-PCS; principal; 2020-07-05)
DX: F10.230 Alcohol dependence with withdrawal, uncomplicated (principal); F11.23 Opioid dependence with withdrawal; F13.230 Sedative, hypnotic or anxiolytic dependence with withdrawal, uncomplicated; F17.213 Nicotine dependence, cigarettes, with withdrawal; F19.282 Other psychoactive substance dependence with psychoactive substance-induced sleep disorder; F19.24 Other psychoactive substance dependence with psychoactive substance-induced mood disorder; F41.9 Anxiety disorder, unspecified; I10 Essential (primary) hypertension; J45.20 Mild intermittent asthma, uncomplicated; Z56.0 Unemployment, unspecified; Z59.0 Homelessness
CPT/HCPCS: 36415; 80053; 85027; 86780; 93005; 93010; J0735; U0003